=== PATIENT | female | born 1935 | race Caucasian/White ===

== ENCOUNTER 2016-09-22 18:57 | Inpatient (IN) | payer MEDICARE ==
[~2016-09-22] VITALS: Ht 162.6 cm; Wt 61.0 kg
[~2016-09-22 18:57] MED LIST: ALBUAER3 INH; ALLO100T PO; DILT0.05 PO; GABA100C4 PO; GAS-CAP3 PO; LEVO25TA4 PO; SACC1CAP3 PO; TYLE325T PO; WARF4TAB51 PO
[2016-09-22 18:59] VITALS: BP 90/53; PULSE 89; RESP 15; TEMP 98.7; O2SAT 96
[2016-09-22] MEDS ORDERED: SODIUM CHLOR 0.9% 1000 ML INJ 800 ML IV ONE (20:06)
[2016-09-22] MEDS ORDERED: SODIUM CHLOR 0.9% 1000 ML INJ 1,000 ML IV ONE (20:06)
[2016-09-22] MEDS ORDERED: VANCOMYCIN 500 MG VIAL (FOR ORAL USE ONLY) PO STA (20:06)
--- NOTE | 2016-09-22 20:10 | PD ---
HPI Chief Complaint: GI Complaint Time Seen by Provider: 20:00 Travel History International Travel<30 days: No Contact w/Intl Traveler<30days: No Traveled to known affect area: No History of Present Illness HPI This is an 80-year-old female who presents with her son-in-law, resident of [facility], primary care physician Dr. Noel. She presents for evaluation of diarrhea. According to the son-in-law who provides most of the history, the patient has had frequent episodes of C. difficile colitis over the past several months. She has been hospitalized at [facility]. She most recently was on a 14 day course of oral vancomycin which was discontinued on September 14. Since yesterday evening she has had multiple episodes of brown watery stool. She's been complaining of some mild pain in left lower portion of her abdomen. She had low-grade fevers today, maximum temperature was 100.6. In addition the son- in-law noticed some nonspecific edema around the eyes. She denies any chest pain or shortness of breath, flank pain, nausea or vomiting. Per her chart review she has a history of rheumatoid arthritis, colitis, mechanical heart valve, COPD. [facility] Social History Alcohol Use: No Tobacco Use: No Allergies-Medications (Allergen,Severity, Reaction): Coded Allergies: Bees (Verified Allergy, Severe, shock, 09/22/16) Dilaudid (Verified Allergy, Severe, coded, 09/22/16) Flagyl (Verified Allergy, Intermediate, seizures, 09/22/16) Sulfa (Verified Allergy, Intermediate, pass out, hives, 09/22/16) Codeine (Verified Allergy, Mild, pass out, 09/22/16) Demerol (Verified Allergy, Mild, pass out, 09/22/16) Morphine (Verified Allergy, Mild, pass out, 09/22/16) Penicillin (Verified Allergy, Mild, rash, 09/22/16) Influenza Virus Vaccine (Verified Allergy, Unknown, allergic to eggs, ) Vancomycin (Verified Allergy, Unknown, hives, 09/22/16) PT CAN RECEIVE ORAL, BUT NOT IV Reported Meds & Prescriptions Reported Meds & Active Scripts Active Gabapentin 100 Mg Cap 100 Mg PO HS Reported Warfarin 2 Mg Tab 2 Mg PO DAILY Gas-X Ultra Strength (Simethicone) 180 Mg Cap 180 Mg PO BID PRN Tylenol (Acetaminophen) 325 Mg Tab 650 Mg PO Q4H PRN Proair Hfa 8.5 GM Inh (Albuterol Sulfate) 90 Mcg/Act Aer 2 Puff INH Q6H PRN 108 mcg/actuation Probiotic (Saccharomyces Boulardii) 250 Mg Cap 250 Mg PO BID Levothyroxine (Levothyroxine Sodium) 25 Mcg Tab 25 Mcg PO DAILY Diltiazem ER 24 HR 180 Mg Sujata 180 Mg PO DAILY Allopurinol 100 Mg Tab 100 Mg PO DAILY Review of Systems Except as stated in HPI: all other systems reviewed are Neg Physical Exam Narrative GENERAL: Well-developed well-nourished female in no acute distress. There is brown diarrhea seeping out of her clothing. SKIN: Warm and dry. There is nonspecific soft tissue swelling in the periorbital regions. There is no generalized hives. HEAD: Atraumatic. Normocephalic. EYES: Pupils equal and round. No scleral icterus. No injection or drainage. ENT: No nasal bleeding or discharge. Mucous membranes pink and moist. No swelling of the lips, tongue, uvula. No stridor or drooling. NECK: Trachea midline. No JVD. CARDIOVASCULAR: Regular rate and rhythm. No murmur appreciated. RESPIRATORY: No accessory muscle use. Clear to auscultation. Breath sounds equal bilaterally. No wheezing. GASTROINTESTINAL: Abdomen soft, mild tenderness to palpation left lower quadrant without guarding. MUSCULOSKELETAL: No obvious deformities. No clubbing. No cyanosis. No edema. NEUROLOGICAL: Awake and alert. No obvious cranial nerve deficits. Motor grossly within normal limits. Normal speech. PSYCHIATRIC: Appropriate mood and affect; insight and judgment normal. Data Data Last Documented VS Vital Signs Date Time Temp Pulse Resp B/P Pulse Ox O2 Delivery O2 Flow Rate FiO2 09/22/16 20:25 81 16 110/57 99 Room Air 09/22/16 18:59 98.7 Orders Vancomycin For Oral Use Only (Vancomycin (09/22/16 20:06) C Diff Toxin Pcr (09/22/16 20:06) Enteric Path (Stool) (09/22/16 20:06) Complete Blood Count With Diff (09/22/16 20:06) Comprehensive Metabolic Panel (09/22/16 20:06) Lactic Acid Sepsis Protocol (09/22/16 20:06) Urinalysis - C+S If Indicated (09/22/16 20:06) Blood Culture (09/22/16 20:06) Ecg Monitoring (09/22/16 20:06) Iv Access Insert/Monitor (09/22/16 20:06) Oximetry (09/22/16 20:06) Oxygen Administration (09/22/16 20:06) Ct Abd/Pel W Iv Contrast(Rout) (09/22/16 20:06) Sodium Chlor 0.9% 1000 Ml Inj (Ns 1000 M (09/22/16 20:06) Sodium Chlor 0.9% 1000 Ml Inj (Ns 1000 M (09/22/16 20:06) Act Partial Throm Time (Ptt) (09/22/16 20:10) Prothrombin Time / Inr (Pt) (09/22/16 20:10) Diphenhydramine Inj (Benadryl Inj) (09/22/16 20:30) Isolation (09/22/16 21:03) Potassium Chloride (Kcl) (09/22/16 21:15) Iohexol 350 Inj (Omnipaque 350 Inj) (09/22/16 21:47) Labs Laboratory Tests Test 09/22/16 20:30 White Blood Count 14.9 TH/MM3 Red Blood Count 3.76 MIL/MM3 Hemoglobin 10.5 GM/DL Hematocrit 32.6 % Mean Corpuscular Volume 86.5 FL Mean Corpuscular Hemoglobin 27.9 PG Mean Corpuscular Hemoglobin 32.2 % Concent Red Cell Distribution Width 18.9 % Platelet Count 197 TH/MM3 Mean Platelet Volume 8.8 FL Neutrophils (%) (Auto) 79.8 % Lymphocytes (%) (Auto) 9.6 % Monocytes (%) (Auto) 9.5 % Eosinophils (%) (Auto) 0.2 % Basophils (%) (Auto) 0.9 % Neutrophils # (Auto) 11.8 TH/MM3 Lymphocytes # (Auto) 1.4 TH/MM3 Monocytes # (Auto) 1.4 TH/MM3 Eosinophils # (Auto) 0.0 TH/MM3 Basophils # (Auto) 0.1 TH/MM3 CBC Comment DIFF FINAL Differential Comment Prothrombin Time 29.5 SEC Prothromb Time International 2.6 RATIO Ratio Activated Partial 43.5 SEC Thromboplast Time Sodium Level 132 MEQ/L Potassium Level 3.1 MEQ/L Chloride Level 98 MEQ/L Carbon Dioxide Level 24.7 MEQ/L Anion Gap 9 MEQ/L Blood Urea Nitrogen 17 MG/DL Creatinine 1.12 MG/DL Estimat Glomerular Filtration 47 ML/MIN Rate Random Glucose 121 MG/DL Lactic Acid Level 2.0 mmol/L Calcium Level 8.5 MG/DL Total Bilirubin 0.6 MG/DL Aspartate Amino Transf 16 U/L (AST/SGOT) Alanine Aminotransferase 13 U/L (ALT/SGPT) Alkaline Phosphatase 137 U/L Total Protein 5.5 GM/DL Albumin 2.1 GM/DL [facility] Medical Decision Making Medical Screen Exam Complete: Yes Emergency Medical Condition: Yes Medical Record Reviewed: Yes Interpretation(s) CONCLUSION: 1. Abnormal appearance of the colon with concentric thickening of the wall of the cecum and from the splenic flexure to the rectum. Diffuse nature suggests colitis. 2. Small patchy infiltrate in the right costophrenic angle. Differential Diagnosis C. difficile colitis, diverticulitis, sepsis, dehydration Narrative Course 80-year-old female who suffered from recent bouts of C. difficile colitis. She presents with multiple episodes of watery emesis since yesterday evening, low- grade fevers today. On initial examination her blood pressure is 90/53. She has mild tenderness to palpation left lower quadrant. She is not tachycardic or febrile. She has nonspecific edema around the eyes of unknown etiology, possibly an allergic reaction. She has no angioedema of the airway or wheezing or hives. The patient reports that she has been told by a neurologist at [facility] at she can no longer take Flagyl because it portably caused her seizures in the past. Plan is for basic lab work, blood cultures, CT of the abdomen and pelvis. She will be started on oral vancomycin pending C. difficile PCR. CT the abdomen and pelvis is consistent with colitis. Her diabetes count is elevated at 14.9. Her potassium is slightly low at 3.1, she was given oral potassium chloride. Her lactic is 2.0. C. difficile and stool cultures are currently pending. At this point in time the plan is to admit her for colitis which is presumably due to C. difficile given her history. She is agreeable. Discussed with Dr. Rush who is agreeable with admission to Dr. Ugalde. Diagnosis Primary Impression: Colitis Additional Impression: History of Clostridium difficile colitis Admitting Information Admitting Physician Requests: Admit Cyndi,German P. PA Sep 22, 2016 20:10 German Hanna Sep 22, 2016 20:10
[2016-09-22 20:25] VITALS: BP 110/57; PULSE 81; RESP 16; O2SAT 99
[2016-09-22] MEDS ORDERED: diphenhydrAMINE HCL 50 MG/ML VIAL IV PUSH ONE (20:30)
[2016-09-22 20:52] LABS: AUTOMATED NEUTROPHIL # 11.8 TH/MM3 (1.8-7.7); BASOPHIL # 0.1 TH/MM3 (0-0.2); BASOPHIL % 0.9 % (0.0-2.0); EOSINOPHIL % 0.2 % (0.0-4.0); HEMATOCRIT 32.6 % (35.0-46.0); HEMO FLAGS DIFF FINAL; LYMPH % 9.6 % (9.0-44.0); LYMPHOCYTE # 1.4 TH/MM3 (1.0-4.8); MEAN CELL VOLUME 86.5 FL (80.0-100.0); MEAN CORPUSCULAR HEMOGLOBIN 27.9 PG (27.0-34.0); MEAN CORPUSCULAR HGB CONC 32.2 % (32.0-36.0); MONO % 9.5 % (0.0-8.0); NEUT % 79.8 % (16.0-70.0); PLATELET COUNT 197 TH/MM3 (150-450); RED BLOOD COUNT 3.76 MIL/MM3 (4.00-5.30); RED CELL DISTRIBUTION WIDTH 18.9 % (11.6-17.2); WHITE BLOOD COUNT 14.9 TH/MM3 (4.0-11.0)
[2016-09-22 20:59] LABS: APTT (PATIENT) 43.5 SEC (24.3-30.1); INTERNATIONAL NORMALIZED RATIO 2.6 RATIO; PROTHROMBIN TIME - PATIENT 29.5 SEC (9.8-11.6)
[2016-09-22 21:07] LABS: ALT (GPT) 13 U/L (10-53); ANION GAP 9 MEQ/L (5-15); AST (GOT) 16 U/L (15-37); BICARBONATE 24.7 MEQ/L (21.0-32.0); BLOOD UREA NITROGEN 17 MG/DL (7-18); CHLORIDE 98 MEQ/L (98-107); GLOMERULAR FILTRATION RATE 47 ML/MIN (>89); POTASSIUM 3.1 MEQ/L (3.5-5.1); SODIUM (NA) 132 MEQ/L (136-145)
[2016-09-22 21:10] LABS: ALKALINE PHOSPHATASE 137 U/L (45-117); TOTAL BILIRUBIN ADULT 0.6 MG/DL (0.2-1.0)
[2016-09-22] MEDS ORDERED: POTASSIUM CHLORIDE 20 MEQ CONTROLLED RELEASE TAB PO ONE (21:15)
[2016-09-22] MEDS ORDERED: IOHEXOL 350 MG/ML 10 ML VIAL (for RAD DIAG) IV ONE (21:47)
--- NOTE | 2016-09-22 22:10 | RADRPT ---
EXAM DATE/TIME: 09/22/2016 21:35 [place] COMPARISON: No previous studies available for comparison. INDICATIONS : Abdominal pain and diarrhea. IV CONTRAST: 75 cc Omnipaque 350 (iohexol) IV ORAL CONTRAST: No oral contrast ingested. RADIATION DOSE: 9.96 CTDIvol (mGy) MEDICAL HISTORY : Colitis. SURGICAL HISTORY : Hysterectomy. Cholecystectomy.CABGColon resection. ENCOUNTER: Initial ACUITY: 1 day PAIN SCALE: 6/10 LOCATION: Left lower quadrant TECHNIQUE: Volumetric scanning of the abdomen and pelvis was performed. Using automated exposure control and ad justment of the mA and/or kV according to patient size, radiation dose was kept as low as reasonably achievable to obtain optimal diagnostic quality images. DICOM format image data is available electro nically for review and comparison. FINDINGS: LOWER LUNGS: Small areas of infiltrate in the right costophrenic angle. No evidence of pleural effusion. Calcifi ed granuloma in the medial right lower lung. Small hiatus hernia. LIVER: Homogeneous density without lesion. There is no dilation of the biliary tree. Cholecystectomy. SPLEEN: Normal size without lesion. PANCREAS: Within normal limits. KIDNEYS: Normal in size and shape. There is no mass, stone or hydronephrosis. ADRENAL GLANDS: Within normal limits. VASCULAR: Dense wall calcification throughout the not enlarged abdominal aorta. BOWEL/MESENTERY: Abnormal appearance to the colon with concentric wall thickening from the splenic flexure to the rect um measuring up to 1 cm in thickness. There is also concentric wall thickening in the cecum. No jewel dence of free fluid. There are a few scattered diverticula in the sigmoid colon. No evidence of cara e fluid. Air-fluid levels are seen in the small bowel, but no dilated loops of small bowel. ABDOMINAL WALL: There is some mild induration of the subcutaneous fat of the anterior abdominal wall and in the glute al region bilaterally. RETROPERITONEUM: There is no lymphadenopathy. BLADDER: No wall thickening or mass. REPRODUCTIVE: Within normal limits. INGUINAL: There is no lymphadenopathy or hernia. MUSCULOSKELETAL: Advanced hypertrophic changes in the posterior elements of the lumbar spine. CONCLUSION: 1. Abnormal appearance of the colon with concentric thickening of the wall of the cecum and from the splenic flexure to the rectum. Diffuse nature suggests colitis. 2. Small patchy infiltrate in the right costophrenic angle. Aron Asher MD on September 22, 2016 at 21:59 Board Certified Radiologist. This report was verified electronically.
[2016-09-22 22:41] VITALS: BP 144/65; PULSE 77; RESP 16; O2SAT 98
[2016-09-22] MEDS ORDERED: ACETAMINOPHEN 325 MG TAB PO PRN (23:15)
[2016-09-22] MEDS ORDERED: NALOXONE HCL 0.4 MG/ML AMP IV PRN (23:15)
[2016-09-22] MEDS ORDERED: SODIUM CHLORIDE 0.9% FLUSH 10 ML FLUSH IV FLUSH PRN (23:15)
[2016-09-22 23:19] LABS: C. DIFF EPI 027 PRESUMPTIVE POSITIVE (NEGATIVE)
[2016-09-22 23:20] LABS: C. DIFF TOXIN PCR POSITIVE (NEGATIVE)
--- NOTE | 2016-09-22 23:23 | HHI.HP ---
HPI Service Family Medicine Primary Care Physician Alex Noel MD Admission Diagnosis colitis, hypokalemia Diagnoses: International Travel<30 Days: No Contact w/Intl Traveler<30days: No Known Affected Area: No History of Present Illness 80yr old female w/ PMH of mechanical hear valve, colitis, hypothyroidism, who presents with abdominal pain, diarrhea, and low grade fever from the [facility]. History is provided by pt and son-in-law (medical surrogate) . Pt has had non-blooding, watery diarrhea for the last 18 hrs accompanied by a low grade fever of 100.6. She also complains of LLQ, pressurized, non- radiating, 7/10 abdominal pain that comes and goes. She has had 3 episode of colitis over the past several months, where she was hospitalized at [facility]. She recently was on a 14 day course of oral vancomycin that was discontinued on September 14. In addition, son-in-law reports puffiness and swelling around her eyes that started yesterday afternoon. Pt denies redness, itchiness, and vision changes. Pt also states that she has been unable to urinate since this morning. Son-in-law is concern that she has a possible UTI since she is slightly confused and not acting like her normal self. Denies CP, SOB, N/V, flank pain, headache, and swelling in lower extremities. Review of Systems ROS Limitations: Poor Historian Constitutional: COMPLAINS OF: Fever (low- grade fever of 100.6 in [place] [facility] ; no fever upon arrival to ED ), DENIES: Change in appetite Eyes: DENIES: Vision loss Ears, nose, mouth, throat: DENIES: Sinus Pain Respiratory: COMPLAINS OF: Cough (slight dry cough), DENIES: Shortness of breath Cardiovascular: DENIES: Chest pain, Lower Extremity Edema Gastrointestinal: COMPLAINS OF: Abdominal pain (LLQ abdominal pain ), Diarrhea , DENIES: Nausea, Vomiting Genitourinary: DENIES: Dysuria Musculoskeletal: DENIES: Back pain Integumentary: DENIES: Rash Hematologic/lymphatic: DENIES: Lymphadenopathy Neurologic: DENIES: Headache, Paresthesias Past Family Social History Past Medical History Past Medical History: Anemia Colitis with C. 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+ years ago; no adjuvant therapy necessary Left carotid endarterectomy Coronary artery bypass grafting with replacement of aortic valve with a metal prosthetic valve; approximately 15 years ago - bilateral cataract extraction Allergies: Coded Allergies: Bees (Verified Allergy, Severe, shock, 09/22/16) Dilaudid (Verified Allergy, Severe, coded, 09/22/16) Flagyl (Verified Allergy, Intermediate, seizures, 09/22/16) Sulfa (Verified Allergy, Intermediate, pass out, hives, 09/22/16) Codeine (Verified Allergy, Mild, pass out, 09/22/16) Demerol (Verified Allergy, Mild, pass out, 09/22/16) Morphine (Verified Allergy, Mild, pass out, 09/22/16) Penicillin (Verified Allergy, Mild, rash, 09/22/16) Influenza Virus Vaccine (Verified Allergy, Unknown, allergic to eggs, ) Vancomycin (Verified Allergy, Unknown, hives, 09/22/16) PT CAN RECEIVE ORAL, BUT NOT IV Family History Father: of heart failure at 84 Mother: of complications of an aortic aneurysm at 90 Siblings: One brother and one sister from lung cancer Children: 2 sons alive and well Social History Marital Status: Living Situation: Recently was living in a [facility] until hospitalized earlier this year. [facility] and now transitioned to the [facility] assisted living unit at [facility]. This patient was originally from [place] but has lived much of her life in the [facility]. Education: Post high school Work history: Retired respiratory therapist Tobacco: Quit approximately 20+ years ago, moderate use prior to quitting Alcohol: None Illicit drug use: none Physical Exam Vital Signs Vital Signs Date Time Temp Pulse Resp B/P Pulse Ox O2 Delivery O2 Flow Rate FiO2 09/22/16 22:41 77 16 144/65 98 Room Air 09/22/16 20:25 81 16 110/57 99 Room Air 09/22/16 20:24 99 Room Air 09/22/16 20:14 16 09/22/16 18:59 98.7 89 15 90/53 96 Room Air Physical Exam GENERAL: This is a well-nourished, well-developed patient, in no apparent distress. SKIN: No rashes, ecchymoses or lesions. Cool and dry. HEAD: Atraumatic. Normocephalic. No temporal or scalp tenderness. EYES: Nonspecific edema around the eyes. No redness. Pupils equal round and reactive. Extraocular motions intact. No scleral icterus. No injection or drainage. ENT: Nose without bleeding, purulent drainage or septal hematoma. Throat without erythema, tonsillar hypertrophy or exudate. Uvula midline. Airway patent. NECK: Trachea midline. No JVD or lymphadenopathy. Supple, nontender, no meningeal signs. CARDIOVASCULAR: Regular rate and rhythm without murmurs, gallops, or rubs. RESPIRATORY: Clear to auscultation. Breath sounds equal bilaterally. No wheezes , rales, or rhonchi. GASTROINTESTINAL: Abdomen soft, mild tenderness to palpation in LLQ w/ no guarding, nondistended. No hepato-splenomegaly, or palpable masses. MUSCULOSKELETAL: Extremities without clubbing, cyanosis, or edema. No joint tenderness, effusion, or edema noted. No calf tenderness. Negative Homans sign bilaterally. NEUROLOGICAL: Awake and alert. Cranial nerves II through XII intact. Motor and sensory grossly within normal limits. Five out of 5 muscle strength in all muscle groups. Normal speech. Laboratory Laboratory Tests Test 09/22/16 20:30 White Blood Count 14.9 Red Blood Count 3.76 Hemoglobin 10.5 Hematocrit 32.6 Mean Corpuscular Volume 86.5 Mean Corpuscular Hemoglobin 27.9 Mean Corpuscular Hemoglobin 32.2 Concent Red Cell Distribution Width 18.9 Platelet Count 197 Mean Platelet Volume 8.8 Neutrophils (%) (Auto) 79.8 Lymphocytes (%) (Auto) 9.6 Monocytes (%) (Auto) 9.5 Eosinophils (%) (Auto) 0.2 Basophils (%) (Auto) 0.9 Neutrophils # (Auto) 11.8 Lymphocytes # (Auto) 1.4 Monocytes # (Auto) 1.4 Eosinophils # (Auto) 0.0 Basophils # (Auto) 0.1 CBC Comment DIFF FINAL Differential Comment Prothrombin Time 29.5 Prothromb Time International 2.6 Ratio Activated Partial 43.5 Thromboplast Time Stool C. difficile Toxin (PCR) POSITIVE Stl C. difficile Toxin PRESUMPTIVE Epiderm 027 POSITIVE Sodium Level 132 Potassium Level 3.1 Chloride Level 98 Carbon Dioxide Level 24.7 Anion Gap 9 Blood Urea Nitrogen 17 Creatinine 1.12 Estimat Glomerular Filtration 47 Rate Random Glucose 121 Lactic Acid Level 2.0 Calcium Level 8.5 Total Bilirubin 0.6 Aspartate Amino Transf 16 (AST/SGOT) Alanine Aminotransferase 13 (ALT/SGPT) Alkaline Phosphatase 137 Total Protein 5.5 Albumin 2.1 Date/Time Procedure Status Source Growth 09/22/16 20:30 Aerobic Blood Culture Received Blood Peripheral Pending 09/22/16 20:30 Anaerobic Blood Culture Received Blood Peripheral Pending 09/22/16 20:30 Received Stool Stool Pending Result Diagram: 09/22/16202909/22/162029 Imaging Last Impressions Abdomen/Pelvis CT 09/22/162005 Signed Impressions: Service Date/Time: September 21:35 - CONCLUSION: 1. Abnormal appearance of the colon with concentric thickening of the wall of the cecum and from the splenic flexure to the rectum. Diffuse nature suggests colitis. 2. Small patchy infiltrate in the right costophrenic angle. Aron Asher MD Assessment and Plan Assessment and Plan 80yr old female w/ PMH of mechanical hear valve, colitis, hypothyroidism, presented with abdominal pain and diarrhea. Admitted for colitis. Code Status DNR Discussed Condition With Pt seen and examined with Dr. Membreno. Will discuss with Dr. Carson. Problem List: (1) Colitis Status: Acute Plan: Pt has had 3 episodes of colitis over the past several months. She was on a 14 day course of vancomycin, which was discontinued on September 14. - CT of the abdomen and pelvis showed abnormal appearance of the colon with concentric thickening of the wall of the cecum and from the splenic flexure to the rectum. -CBC- elevated WBC count of 14.9 -C.diff and stool cultures pending -C.diff tox PCR and C.diff tox epid - positive -Started on (09/23) oral vancomycin 125 mg PO QID, pt reports having an adverse reaction of IV vancomycin, where she experienced at rash at the IV site, likely Red Man syndrome -ID consulted -Pt on contact precautions (2) LÓPEZ (acute kidney injury) Status: Acute Plan: Cr is elevated at 1.12, this is possibly due to dehydration, will f/u after giving her fluids -BMP ordered for the AM (3) Mechanical heart valve present Status: Acute Plan: - On Coumadin, 2mg PO daily -INR 2.6 (4) Nutrition, metabolism, and development symptoms Status: Acute Plan: -Fluids: NS 100mls/hr -Electrolytes: -BMP- K+ low at 3.1, replaced with 40meq,monitor and replaced as needed, -Nutrition: Regular Diet -Nursing Orders, vitals q4h, monitor I & Os, bed rest (5) Hypothyroid Status: Acute Plan: -Levothyroxine 25mcg PO Physician Certification 2 Midnight Certification Type: Admission for Inpatient Services Order for Inpatient Services The services are ordered in accordance with Medicare regulations or non- Medicare payer requirements, as applicable. In the case of services not specified as inpatient-only, they are appropriately provided as inpatient services in accordance with the 2-midnight benchmark. Estimated LOS (days): 2 days is the estimated time the patient will need to remain in the hospital, assuming treatment plan goals are met and no additional complications. Post-Hospital Plan: SNF Tala Moss MD R1 Sep 22, 2016 23:23
[2016-09-22 23:33] LABS: BACTERIA, URINE RARE /hpf; BLOOD, URINE NEG (NEG); COMMENT (UR) CATH-CULTURE IND; CULTURE IF INDICATED CATH CULTURE IND; GLUCOSE,URINE NEG (NEG); HYALINE CAST, URINE 4 /lpf (RARE); KETONE, URINE NEG (NEG); MUCUS URINE FEW /lpf (OCC); NITRITE,URINE NEG (NEG); PH, URINE 5.5 (5.0-8.5); URINE COLOR YELLOW (YELLW/STRAW)
[2016-09-23] VITALS (7 sets, daily range): BP systolic 148–178; BP diastolic 67–82; PULSE 77–84; RESP 18–20; TEMP 97.6–98.2; O2SAT 96–97
[2016-09-23] MEDS ORDERED: SIMETHICONE 80 MG CHEWABLE TAB CHEW PRN (00:15)
[2016-09-23] MEDS: VANCOMYCIN 500 MG VIAL (FOR ORAL USE ONLY) PO SCH ×5 (05:00→20:16)
[2016-09-23] MEDS: LEVOTHYROXINE SODIUM 25 MCG TAB PO SCH (05:20)
[2016-09-23] MEDS: SODIUM CHLORIDE 0.9% FLUSH 10 ML FLUSH IV FLUSH SCH ×2 (07:59→20:15)
[2016-09-23] MEDS: SODIUM CHLOR 0.9% 1000 ML INJ 1,000 ML IV SCH ×2 (08:00→13:50)
[2016-09-23] MEDS: DILTIAZEM-CD 180 MG CAP ER PO SCH (08:00)
[2016-09-23] MEDS ORDERED: NON-FORMULARY DRUG (Saccharomyces Boulardii (Probiotic) 250 MG) PO SCH (09:00)
--- NOTE | 2016-09-23 09:21 | HHI.FPPN ---
Subjective Remarks Patient feels slightly better this morning. Her abdominal pain is gone. She is not having any more fevers. However, she still has less energy. She has had more than 5 but less than 10 bowel movements since being here. Denies headache, changes in vision, belly pain, shortness of breath. (Rakesh Carson MD R2) Objective Vitals Vital Signs Date Time Temp Pulse Resp B/P Pulse Ox O2 Delivery O2 Flow Rate FiO2 09/23/16 04:55 98.0 84 18 160/74 96 09/23/16 00:15 97.8 79 18 148/67 97 09/22/16 22:41 77 16 144/65 98 Room Air 09/22/16 20:25 81 16 110/57 99 Room Air 09/22/16 20:24 99 Room Air 09/22/16 20:14 16 09/22/16 18:59 98.7 89 15 90/53 96 Room Air I/O 09/22/16 09/22/16 09/22/16 09/23/16 09/23/16 09/23/16 07:00 15:00 23:00 07:00 15:00 23:00 Intake Total 0 ml Output Total 350 ml Balance -350 ml Intake Oral 0 ml Output Urine Total 350 ml # Voids 1 # Bowel Movements 7 (Rakesh Carson MD R2) Result Diagram: 09/22/16202909/22/162029 Objective Remarks GENERAL: This is a pleasant elderly female lying comfortably in bed, answering questions appropriately. No acute distress. SKIN: No rashes, ecchymoses or lesions. Cool and dry. HEAD: Atraumatic. Normocephalic. No temporal or scalp tenderness. EYES: Nonspecific edema around the eyes. No redness. Pupils equal round and reactive. Extraocular motions intact. No scleral icterus. No injection or drainage. ENT: Nose without bleeding, purulent drainage or septal hematoma. Throat without erythema, tonsillar hypertrophy or exudate. Uvula midline. Airway patent. NECK: Trachea midline. No JVD or lymphadenopathy. Supple, nontender, no meningeal signs. CARDIOVASCULAR: Regular rate and rhythm without murmurs, gallops, or rubs. RESPIRATORY: Clear to auscultation. Breath sounds equal bilaterally. No wheezes , rales, or rhonchi. GASTROINTESTINAL: Abdomen soft, nontender to palpation. No hepato-splenomegaly, or palpable masses. Positive bowel sounds. MUSCULOSKELETAL: Extremities without clubbing, cyanosis, or edema. No joint tenderness, effusion, or edema noted. No calf tenderness. Negative Homans sign bilaterally. NEUROLOGICAL: Awake and alert. Cranial nerves II through XII intact. Motor and sensory grossly within normal limits. Five out of 5 muscle strength in all muscle groups. Normal speech. (Rakesh Carson MD R2) A/P Assessment and Plan 80yr old female w/ PMH of mechanical hear valve, recent hospital stay in August for C. difficile colitis. Here for recurrent C. difficile colitis. Infectious disease consult and plan as discussed below. Discharge Planning Pending clinical improvement (Rakesh Carson MD R2) Attending Attestation Patient seen and examined. Case reviewed and discussed with the resident team. Agree with plan of care as discussed with me and documented in the resident note. she had 4 bowel movements in 4 hours this am per her nurse. she has the loose watery diarrhea of C diff. she stated she lost 50 pounds over some months and has decreased appetite (Denise Ugalde MD) Problem List: (1) Clostridium difficile colitis Status: Acute Plan: Recurrent C. difficile colitis. Epidemiologic 027 strain positive Infectious disease consult Started on (09/23) oral vancomycin 125 mg PO QID (patient had likely red man syndrome from IV vancomycin, but she has previously tolerated by mouth vancomycin without adverse reaction) Patient on contact precautions Continue to follow daily labs Fluids as below Lab history: 09/22: WBC 14.9, lactic acid 2.0, creatinine 1.12, albumin 2.1 C. difficile toxin positive. Epidemiologic 027 strain positive Imaging: -09/22: CT of the abdomen and pelvis showed abnormal appearance of the colon with concentric thickening of the wall of the cecum and from the splenic flexure to the rectum. (2) LÓPEZ (acute kidney injury) Status: Acute Plan: Creatinine mildly elevated. Likely prerenal from diarrhea Continue IV hydration (3) Mechanical heart valve present Status: Acute Plan: - On Coumadin, 2mg PO daily -INR 2.6 (4) Hypothyroid Status: Chronic Plan: -Continue home Levothyroxine 25mcg PO (5) Weakness Status: Acute Plan: Increased weakness and decreased energy since dealing with diarrhea Consider physical therapy consult when patient is out of acute illness. (6) Nutrition, metabolism, and development symptoms Status: Acute Plan: -Fluids: NS 100mls/hr -Electrolytes: Monitor and replace as needed -Nutrition: Regular Diet Prophylaxis: On warfarin as above, INR therapeutic (Rakesh Carson MD R2) Rakesh Carson MD R2 Sep 23, 2016 09:21 Denise Ugalde MD Sep 23, 2016 16:21
--- NOTE | 2016-09-23 12:23 | PD.ID.CON ---
History of Present Illness Service ID Consult Requested By Dr Moss Reason for Consult C.diff Primary Care Physician Alex Noel MD Diagnoses: History of Present Illness 80 yo female developped diarrhea in July and was treated 2 courses of vancomycin per her own report. She thins it was 2 courses, overall she thinks she was taking vancomycin for 2 months. Her diarrhea resolved with treatment . Vanco was stopped about 2 weeks ago and in a week diarrhea recurred She also having abdominal pain She had 4 liquid BMs today She has no fever, WBC in 13-14 range, she tolerates po, thought she has low appetite She developped seizure with flagyls She describes red man syndrome with IV vancomycin, but oral vanco is tolerated unvenetfully Review of Systems Constitutional: COMPLAINS OF: Change in appetite (poor) Gastrointestinal: COMPLAINS OF: Abdominal pain, Diarrhea Past Family Social History Allergies: Coded Allergies: Bees (Verified Allergy, Severe, shock, 09/22/16) Dilaudid (Verified Allergy, Severe, coded, 09/22/16) Flagyl (Verified Allergy, Intermediate, seizures, 09/22/16) Sulfa (Verified Allergy, Intermediate, pass out, hives, 09/22/16) Codeine (Verified Allergy, Mild, pass out, 09/22/16) Demerol (Verified Allergy, Mild, pass out, 09/22/16) Morphine (Verified Allergy, Mild, pass out, 09/22/16) Penicillin (Verified Allergy, Mild, rash, 09/22/16) Influenza Virus Vaccine (Verified Allergy, Unknown, allergic to eggs, ) Vancomycin (Verified Allergy, Unknown, hives, 09/22/16) PT CAN RECEIVE ORAL, BUT NOT IV Past Medical History Anemia Colitis with C. 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 15+ years ago; no adjuvant therapy necessary Left carotid endarterectomy Coronary artery bypass grafting with replacement of aortic valve with a metal prosthetic valve; approximately 15 years ago - bilateral cataract extraction Active Ordered Medications Medications where reviewed in EMR Antibiotics Include: vanco 125 mg PO Family History Father: of heart failure at 84 Mother: of complications of an aortic aneurysm at 90 Siblings: One brother and one sister from lung cancer Children: 2 sons alive and well Social History Placed in a long-term facility for rehabilitation and now transitioned to assisted living unit at [facility]. Retired respiratory therapist Tobacco: Quit approximately 20+ years ago, moderate use prior to quitting Alcohol: None Illicit drug use: none Physical Exam Vital Signs Vital Signs Date Time Temp Pulse Resp B/P Pulse Ox O2 Delivery O2 Flow Rate FiO2 09/23/16 08:00 98.2 80 18 169/72 97 09/23/16 04:55 98.0 84 18 160/74 96 09/23/16 00:15 97.8 79 18 148/67 97 09/22/16 22:41 77 16 144/65 98 Room Air 09/22/16 20:25 81 16 110/57 99 Room Air 09/22/16 20:24 99 Room Air 09/22/16 20:14 16 09/22/16 18:59 98.7 89 15 90/53 96 Room Air Physical Exam CONSTITUTIONAL/GENERAL: This is an adequately nourished patient, in no apparent distress. TUBES/LINES/DRAINS: SKIN: No jaundice, rashes, or lesions. Skin temperature appropriate. Not diaphoretic. HEAD: Atraumatic. Normocephalic. EYES: Pupils equal and round and reactive. Extraocular motions intact. No scleral icterus. No injection or drainage. Fundi not examined. ENT: Hearing grossly normal. Nose without bleeding or purulent drainage. Oral mucosae seem dryish without visible erythema, exudates, masses, or lesions. NECK: Trachea midline. Supple, nontender. CARDIOVASCULAR: Regular rate and rhythm without murmurs, gallops, or rubs. No JVD. Peripheral pulses symmetric. RESPIRATORY/CHEST: Symmetric, unlabored respirations. Clear to auscultation. Breath sounds equal bilaterally. No wheezes, rales, or rhonchi. GASTROINTESTINAL: Abdomen soft, diffusely moderately tender without guarding or rebound, mildly distended. No hepato-splenomegaly, or palpable masses. No guarding. Bowel sounds present. GENITOURINARY: Without palpable bladder distension. MUSCULOSKELETAL: Extremities without clubbing, cyanosis, or edema. No joint tenderness or effusion noted. No calf tenderness. No mottling or clubbing. LYMPHATICS: No palpable cervical or supraclavicular adenopathy. NEUROLOGICAL: Awake and alert. Motor and sensory grossly within normal limits. Follows commands. Clear speech. Moves all extremities. PSYCHIATRIC: No obvious anxiety/depression. no apparent hallucinations or other psychotic thought process. Laboratory Laboratory Tests Test 09/22/16 09/22/16 20:30 23:15 White Blood Count 14.9 Red Blood Count 3.76 Hemoglobin 10.5 Hematocrit 32.6 Mean Corpuscular Volume 86.5 Mean Corpuscular Hemoglobin 27.9 Mean Corpuscular Hemoglobin 32.2 Concent Red Cell Distribution Width 18.9 Platelet Count 197 Mean Platelet Volume 8.8 Neutrophils (%) (Auto) 79.8 Lymphocytes (%) (Auto) 9.6 Monocytes (%) (Auto) 9.5 Eosinophils (%) (Auto) 0.2 Basophils (%) (Auto) 0.9 Neutrophils # (Auto) 11.8 Lymphocytes # (Auto) 1.4 Monocytes # (Auto) 1.4 Eosinophils # (Auto) 0.0 Basophils # (Auto) 0.1 CBC Comment DIFF FINAL Differential Comment Prothrombin Time 29.5 Prothromb Time International 2.6 Ratio Activated Partial 43.5 Thromboplast Time Stool C. difficile Toxin (PCR) POSITIVE Stl C. difficile Toxin PRESUMPTIVE Epiderm 027 POSITIVE Sodium Level 132 Potassium Level 3.1 Chloride Level 98 Carbon Dioxide Level 24.7 Anion Gap 9 Blood Urea Nitrogen 17 Creatinine 1.12 Estimat Glomerular Filtration 47 Rate Random Glucose 121 Lactic Acid Level 2.0 Calcium Level 8.5 Total Bilirubin 0.6 Aspartate Amino Transf 16 (AST/SGOT) Alanine Aminotransferase 13 (ALT/SGPT) Alkaline Phosphatase 137 Total Protein 5.5 Albumin 2.1 Urine Color YELLOW Urine Turbidity CLEAR Urine pH 5.5 Urine Specific Lyons 1.029 Urine Protein TRACE Urine Glucose (UA) NEG Urine Ketones NEG Urine Occult Blood NEG Urine Nitrite NEG Urine Bilirubin NEG Urine Urobilinogen LESS THAN 2.0 Urine Leukocyte Esterase NEG Urine RBC LESS THAN 1 Urine WBC LESS THAN 1 Urine Bacteria RARE Urine Hyaline Casts 4 Urine Mucus FEW Microscopic Urinalysis Comment CATH-CULTURE IND Date/Time Procedure Status Source Growth 09/22/16 23:15 Urine Culture Received Urine Catheterized Urine Pending 09/22/16 20:30 Aerobic Blood Culture - Preliminary Resulted Blood Peripheral NO GROWTH IN 1 DAY 09/22/16 20:30 Anaerobic Blood Culture - Preliminary Resulted Blood Peripheral NO GROWTH IN 1 DAY 09/22/16 20:30 - Final Complete Stool Stool NO ENTERIC PATHOGENS DETECTED BY PCR... Result Diagram: 09/22/16202909/22/162029 Imaging Last Impressions Abdomen/Pelvis CT 09/22/162005 Signed Impressions: Service Date/Time: September 21:35 - CONCLUSION: 1. Abnormal appearance of the colon with concentric thickening of the wall of the cecum and from the splenic flexure to the rectum. Diffuse nature suggests colitis. 2. Small patchy infiltrate in the right costophrenic angle. Aron Asher MD Assessment and Plan Assessment and Plan C.diff, 1st or 2nd recurrence: pt is unsure but thinks she had already 2 separate courses of vancomycin over the last 2 months - hypervirulent 027 strain REC's; Cont oral vancomycin 125 mg qid increase dose if clinically worse cont on vanco taper x 6 weeks: 125 mg qid x 2 weeks, folowed by 125 mg bid x 1 week , folowed by 125 mg daily x 1 week , folowed by 125 mg every other day x 1 week , folowed by 125 mg q 72 hrs x 5 doses Refer to GI for stool transplant consideration (can be done as o/p) Avoid systemic abx Discussed Condition With Dr Jaarmillo and residents Sarah Mason MD Sep 23, 2016 12:23
[2016-09-23 13:28] LABS: AUTOMATED NEUTROPHIL # 11.3 TH/MM3 (1.8-7.7); BASOPHIL # 0.1 TH/MM3 (0-0.2); BASOPHIL % 0.6 % (0.0-2.0); EOSINOPHIL # 0.1 TH/MM3 (0-0.4); EOSINOPHIL % 0.4 % (0.0-4.0); HEMATOCRIT 31.4 % (35.0-46.0); HEMO FLAGS DIFF FINAL; LYMPHOCYTE # 1.1 TH/MM3 (1.0-4.8); MEAN CELL VOLUME 88.2 FL (80.0-100.0); MEAN CORPUSCULAR HEMOGLOBIN 27.6 PG (27.0-34.0); MEAN CORPUSCULAR HGB CONC 31.3 % (32.0-36.0); PLATELET COUNT 177 TH/MM3 (150-450); RED BLOOD COUNT 3.56 MIL/MM3 (4.00-5.30); RED CELL DISTRIBUTION WIDTH 18.6 % (11.6-17.2); WHITE BLOOD COUNT 13.5 TH/MM3 (4.0-11.0)
[2016-09-23 13:36] LABS: INTERNATIONAL NORMALIZED RATIO 3.2 RATIO; PROTHROMBIN TIME - PATIENT 37.5 SEC (9.8-11.6)
[2016-09-23 13:55] LABS: BICARBONATE 25.2 MEQ/L (21.0-32.0)
[2016-09-23 14:07] LABS: POTASSIUM 2.8 MEQ/L (3.5-5.1)
[2016-09-23] MEDS ORDERED: POTASSIUM CHLORIDE 10 MEQ CONTROLLED RELEASE TAB PO ONE (14:45)
[2016-09-23] MEDS: WARFARIN SOD 2 MG TAB PO SCH (15:18)
[2016-09-23] MEDS: GABAPENTIN 100 MG CAP PO SCH (20:15)
[2016-09-24] VITALS (10 sets, daily range): BP systolic 150–176; BP diastolic 70–104; PULSE 73–80; RESP 18–22; TEMP 97.6–97.8; O2SAT 93–99
[2016-09-24] MEDS: SODIUM CHLOR 0.9% 1000 ML INJ 1,000 ML IV SCH ×3 (04:59→21:11)
[2016-09-24] MEDS: LEVOTHYROXINE SODIUM 25 MCG TAB PO SCH (04:59)
[2016-09-24] MEDS: SODIUM CHLORIDE 0.9% FLUSH 10 ML FLUSH IV FLUSH SCH ×2 (09:00→21:12)
[2016-09-24] MEDS: VANCOMYCIN 500 MG VIAL (FOR ORAL USE ONLY) PO SCH ×4 (10:02→21:11)
[2016-09-24] MEDS: DILTIAZEM-CD 180 MG CAP ER PO SCH (10:02)
[2016-09-24] MEDS: POTASSIUM CHLORIDE 20 MEQ CONTROLLED RELEASE TAB PO SCH ×2 (11:31→21:11)
--- NOTE | 2016-09-24 12:22 | HHI.FPPN ---
Subjective Remarks Patient doing well. Still with persistent diarrhea. Green in color. No blood. No increasing abdominal pain. No fevers. AFVSS. (Luis Davis MD R2) Objective Vitals Vital Signs Date Time Temp Pulse Resp B/P Pulse Ox O2 Delivery O2 Flow Rate FiO2 09/24/16 08:00 97.6 77 18 164/70 99 09/24/16 04:35 154/76 09/24/16 04:00 97.8 75 20 168/82 97 09/24/16 00:30 158/84 09/24/16 00:16 97.6 79 20 168/77 93 09/23/16 20:10 79 09/23/16 20:00 97.6 84 20 158/67 97 09/23/16 16:00 98.1 77 18 178/75 97 I/O 09/23/16 09/23/16 09/23/16 09/24/16 09/24/16 09/24/16 07:00 15:00 23:00 07:00 15:00 23:00 Intake Total 0 ml 360 ml 120 ml 1694 ml Output Total 350 ml Balance -350 ml 360 ml 120 ml 1694 ml Intake Oral 0 ml 360 ml 120 ml 360 ml IV Total 1334 ml Output Urine Total 350 ml # Voids 1 6 3 3 # Bowel Movements 7 8 3 3 (Luis Davis MD R2) Result Diagram: 09/23/16 1307 09/23/16 1307 Objective Remarks GENERAL: This is a pleasant elderly female lying comfortably in bed, answering questions appropriately. No acute distress. SKIN: No rashes, ecchymoses or lesions. Cool and dry. HEAD: Atraumatic. Normocephalic. No temporal or scalp tenderness. EYES: Nonspecific edema around the eyes. No redness. Pupils equal round and reactive. Extraocular motions intact. No scleral icterus. No injection or drainage. ENT: Nose without bleeding, purulent drainage or septal hematoma. Throat without erythema, tonsillar hypertrophy or exudate. Uvula midline. Airway patent. NECK: Trachea midline. No JVD or lymphadenopathy. Supple, nontender, no meningeal signs. CARDIOVASCULAR: Regular rate and rhythm without murmurs, gallops, or rubs. RESPIRATORY: Clear to auscultation. Breath sounds equal bilaterally. No wheezes , rales, or rhonchi. GASTROINTESTINAL: Abdomen soft, nontender to palpation. No hepato-splenomegaly, or palpable masses. Positive bowel sounds. MUSCULOSKELETAL: Extremities without clubbing, cyanosis, or edema. No joint tenderness, effusion, or edema noted. No calf tenderness. Negative Homans sign bilaterally. NEUROLOGICAL: Awake and alert. Cranial nerves II through XII intact. Motor and sensory grossly within normal limits. Five out of 5 muscle strength in all muscle groups. Normal speech. (Luis Davis MD R2) A/P Assessment and Plan 80yr old female w/ PMH of mechanical hear valve, recent hospital stay in August for C. difficile colitis. Here for recurrent C. difficile colitis. Infectious disease consult and plan as discussed below. Discharge Planning Pending clinical improvement (Luis Davis MD R2) Attending Attestation Patient seen and examined. Case reviewed and discussed with the resident team. Agree with plan of care as discussed with me and documented in the resident note. she is more comfortable but still having diarrhea (Denise Ugalde MD) Problem List: (1) Clostridium difficile colitis Status: Acute Plan: Recurrent C. difficile colitis. Epidemiologic 027 strain positive Infectious disease consult recommend Vancomycin taper Started on (09/23) oral vancomycin 125 mg PO QID (patient had likely red man syndrome from IV vancomycin, but she has previously tolerated by mouth vancomycin without adverse reaction) Patient on contact precautions Continue to follow daily labs Fluids as below Lab history: 09/22: WBC 14.9, lactic acid 2.0, creatinine 1.12, albumin 2.1 C. difficile toxin positive. Epidemiologic 027 strain positive Imaging: -09/22: CT of the abdomen and pelvis showed abnormal appearance of the colon with concentric thickening of the wall of the cecum and from the splenic flexure to the rectum. (2) LÓPEZ (acute kidney injury) Status: Acute Plan: Resolved. (3) Mechanical heart valve present Status: Acute Plan: - On Coumadin, 2mg PO daily -INR 2.6 (4) Hypothyroid Status: Chronic Plan: -Continue home Levothyroxine 25mcg PO (5) Weakness Status: Acute Plan: Increased weakness and decreased energy since dealing with diarrhea Consider physical therapy consult when patient is out of acute illness. (6) Nutrition, metabolism, and development symptoms Status: Acute Plan: -Fluids: NS 100mls/hr -Electrolytes: K+ 2.8 on 09/23 - difficult to draw blood (phlebotomy has tried x 4) - has gotten 80 mEc KCl PO x 1, will continue with KCl 40 mEq PO BID. Recheck BMP in am. -Nutrition: Regular Diet Prophylaxis: On warfarin as above, INR therapeutic (Luis Davis MD R2) Luis Davis MD R2 Sep 24, 2016 12:22 Denise Ugalde MD Sep 24, 2016 13:46
[2016-09-24 13:25] LABS: AUTOMATED NEUTROPHIL # 6.7 TH/MM3 (1.8-7.7); BASOPHIL # 0.1 TH/MM3 (0-0.2); BASOPHIL % 0.7 % (0.0-2.0); EOSINOPHIL # 0.1 TH/MM3 (0-0.4); EOSINOPHIL % 1.3 % (0.0-4.0); HEMATOCRIT 33.1 % (35.0-46.0); HEMO FLAGS DIFF FINAL; LYMPH % 12.6 % (9.0-44.0); LYMPHOCYTE # 1.1 TH/MM3 (1.0-4.8); MEAN CELL VOLUME 88.5 FL (80.0-100.0); MEAN CORPUSCULAR HEMOGLOBIN 27.9 PG (27.0-34.0); MEAN CORPUSCULAR HGB CONC 31.5 % (32.0-36.0); MONO % 6.2 % (0.0-8.0); NEUT % 79.2 % (16.0-70.0); PLATELET COUNT 203 TH/MM3 (150-450); RED BLOOD COUNT 3.74 MIL/MM3 (4.00-5.30); RED CELL DISTRIBUTION WIDTH 18.6 % (11.6-17.2); WHITE BLOOD COUNT 8.4 TH/MM3 (4.0-11.0)
[2016-09-24 13:32] LABS: INTERNATIONAL NORMALIZED RATIO 3.3 RATIO; PROTHROMBIN TIME - PATIENT 38.4 SEC (9.8-11.6)
[2016-09-24 13:47] LABS: ANION GAP 7 MEQ/L (5-15); AST (GOT) 17 U/L (15-37); BICARBONATE 22.2 MEQ/L (21.0-32.0); BLOOD UREA NITROGEN 9 MG/DL (7-18); CHLORIDE 105 MEQ/L (98-107); GLOMERULAR FILTRATION RATE 113 ML/MIN (>89); POTASSIUM 3.1 MEQ/L (3.5-5.1); SODIUM (NA) 134 MEQ/L (136-145)
[2016-09-24 13:49] LABS: ALT (GPT) 9 U/L (10-53)
[2016-09-24 13:50] LABS: ALKALINE PHOSPHATASE 135 U/L (45-117); TOTAL BILIRUBIN ADULT 0.3 MG/DL (0.2-1.0)
[2016-09-24] MEDS: WARFARIN SOD 2 MG TAB PO SCH (16:02)
[2016-09-24] MEDS: GABAPENTIN 100 MG CAP PO SCH (21:10)
[2016-09-25] VITALS (10 sets, daily range): BP systolic 158–178; BP diastolic 72–88; PULSE 69–85; RESP 18–20; TEMP 97.5–98.1; O2SAT 96–100
[2016-09-25] MEDS: SODIUM CHLOR 0.9% 1000 ML INJ 1,000 ML IV SCH (06:04)
[2016-09-25] MEDS: LEVOTHYROXINE SODIUM 25 MCG TAB PO SCH (06:04)
[2016-09-25] MEDS: SODIUM CHLORIDE 0.9% FLUSH 10 ML FLUSH IV FLUSH SCH ×2 (08:45→21:26)
[2016-09-25] MEDS: DILTIAZEM-CD 180 MG CAP ER PO SCH (08:46)
[2016-09-25] MEDS: VANCOMYCIN 500 MG VIAL (FOR ORAL USE ONLY) PO SCH ×4 (08:46→21:26)
[2016-09-25] MEDS: POTASSIUM CHLORIDE 20 MEQ CONTROLLED RELEASE TAB PO SCH ×2 (08:46→21:26)
--- NOTE | 2016-09-25 09:58 | HHI.FPPN ---
Subjective Remarks Diarrhea improving. Had BM was solic stool yesterday. Episode of falling while on bedside commode --- lost footing, never had LOC, no headache currently, did not hit her head. Right hip pain that is mild but improving. (Luis Davis MD R2) Objective Vitals Vital Signs Date Time Temp Pulse Resp B/P Pulse Ox O2 Delivery O2 Flow Rate FiO2 09/25/16 09:05 98 Room Air 09/25/16 08:02 98.1 85 20 178/80 98 09/25/16 06:00 98.0 77 20 158/72 98 09/25/16 04:00 98.0 77 20 158/72 97 09/25/16 04:00 Room Air 09/25/16 03:30 97.9 77 20 158/76 98 09/25/16 02:13 85 20 164/72 96 09/25/16 00:00 97.9 78 20 97 162/74 09/25/16 00:00 Room Air 09/24/16 20:14 80 09/24/16 20:00 97.8 79 22 162/76 97 09/24/16 16:52 73 09/24/16 16:00 97.7 77 18 150/70 98 09/24/16 12:00 97.7 78 18 176/104 98 I/O 09/24/16 09/24/16 09/24/16 09/25/16 09/25/16 09/25/16 07:00 15:00 23:00 07:00 15:00 23:00 Intake Total 1694 ml 900 ml 740 ml 882 ml Output Total 375 ml 200 ml Balance 1694 ml 525 ml 540 ml 882 ml Intake Oral 360 ml 900 ml 240 ml IV Total 1334 ml 500 ml 882 ml Output Urine Total 375 ml 200 ml # Voids 3 5 # Bowel Movements 3 3 3 1 (Luis Davis MD R2) Result Diagram: 09/24/16 1304 09/24/16 1304 Objective Remarks GENERAL: This is a pleasant elderly female lying comfortably in bed, answering questions appropriately. No acute distress. SKIN: No rashes, ecchymoses or lesions. Cool and dry. HEAD: Atraumatic. Normocephalic. No temporal or scalp tenderness. EYES: Nonspecific edema around the eyes. No redness. Pupils equal round and reactive. Extraocular motions intact. No scleral icterus. No injection or drainage. ENT: Nose without bleeding, purulent drainage or septal hematoma. Throat without erythema, tonsillar hypertrophy or exudate. Uvula midline. Airway patent. NECK: Trachea midline. No JVD or lymphadenopathy. Supple, nontender, no meningeal signs. CARDIOVASCULAR: Regular rate and rhythm without murmurs, gallops, or rubs. RESPIRATORY: Clear to auscultation. Breath sounds equal bilaterally. No wheezes , rales, or rhonchi. GASTROINTESTINAL: Abdomen soft, nontender to palpation. No hepato-splenomegaly, or palpable masses. Positive bowel sounds. MUSCULOSKELETAL: small 3 cm round ecchymosis on right hip, full ROM. NEUROLOGICAL: Awake and alert. Cranial nerves II through XII intact. Motor and sensory grossly within normal limits. Five out of 5 muscle strength in all muscle groups. Normal speech. (Luis Davis MD R2) A/P Assessment and Plan 80yr old female w/ PMH of mechanical hear valve, recent hospital stay in August for C. difficile colitis. Here for recurrent C. difficile colitis. Infectious disease consult and plan as discussed below. Discharge Planning Pending clinical improvement (Luis Davis MD R2) Attending Attestation Patient seen and examined. Case reviewed and discussed with the resident team. Agree with plan of care as discussed with me and documented in the resident note. spoke to her and her friend Alexandre who was in the room with her. She is feeling much better overall with a better appetite and less diarrhea plus more formed. She had many questions as did her friend about C diff and why she keeps getting this repeatedly. We discussed that taking po vanc could continue for as much as 6 weeks as she has had C diff 3 times. We discussed probiotics and I am not certain which is the best and we discussed stool transplant if it keeps coming back. She is not having any current problems from her fall last night and has little if any pain at this time. will give iv magnesium as po can make diarrhea worse potentially (Denise Ugalde MD) Problem List: (1) Clostridium difficile colitis Status: Acute Plan: Recurrent C. difficile colitis. Epidemiologic 027 strain positive Infectious disease consult recommend Vancomycin taper Started on (09/23) oral vancomycin 125 mg PO QID (patient had likely red man syndrome from IV vancomycin, but she has previously tolerated by mouth vancomycin without adverse reaction) Patient on contact precautions Continue to follow daily labs Lab history: 09/22: WBC 14.9, lactic acid 2.0, creatinine 1.12, albumin 2.1 C. difficile toxin positive. Epidemiologic 027 strain positive Imaging: -09/22: CT of the abdomen and pelvis showed abnormal appearance of the colon with concentric thickening of the wall of the cecum and from the splenic flexure to the rectum. (2) LÓPEZ (acute kidney injury) Status: Acute Plan: Resolved. (3) Mechanical heart valve present Status: Acute Plan: - On Coumadin, 2mg PO daily -INR 3.3 - hold dose today 09/25 recheck INR in AM. (4) Hypothyroid Status: Chronic Plan: -Continue home Levothyroxine 25mcg PO (5) Weakness Status: Acute Plan: Increased weakness and decreased energy since dealing with diarrhea Consider physical therapy consult when patient is out of acute illness. (6) Nutrition, metabolism, and development symptoms Status: Acute Plan: -Fluids: Hold IVF as she is tolerating a diet. -Electrolytes: K+ 3.1 on 09/24 - repeat pending. Continue with KCl 40 mEq PO BID. -Nutrition: Regular Diet Prophylaxis: On warfarin as above, INR supratherapeutic (Luis Davis MD R2) Problem List: (1) Clostridium difficile colitis Status: Acute Plan: Recurrent C. difficile colitis. Epidemiologic 027 strain positive Infectious disease consult recommend Vancomycin taper Started on (09/23) oral vancomycin 125 mg PO QID (patient had likely red man syndrome from IV vancomycin, but she has previously tolerated by mouth vancomycin without adverse reaction) Patient on contact precautions Continue to follow daily labs Lab history: 09/22: WBC 14.9, lactic acid 2.0, creatinine 1.12, albumin 2.1 C. difficile toxin positive. Epidemiologic 027 strain positive Imaging: -09/22: CT of the abdomen and pelvis showed abnormal appearance of the colon with concentric thickening of the wall of the cecum and from the splenic flexure to the rectum. (2) LÓPEZ (acute kidney injury) Status: Acute Plan: Resolved. (3) Mechanical heart valve present Status: Acute Plan: - On Coumadin, 2mg PO daily -INR 3.3 - hold dose today 09/25 recheck INR in AM. (4) Hypothyroid Status: Chronic Plan: -Continue home Levothyroxine 25mcg PO (5) Weakness Status: Acute Plan: Increased weakness and decreased energy since dealing with diarrhea Consider physical therapy consult when patient is out of acute illness. (6) Nutrition, metabolism, and development symptoms Status: Acute Plan: -Fluids: Hold IVF as she is tolerating a diet. -Electrolytes: K+ 3.1 on 09/24 - repeat pending. Continue with KCl 40 mEq PO BID. -Nutrition: Regular Diet Prophylaxis: On warfarin as above, INR supratherapeutic (Denise Ugalde MD) Problem Qualifiers (1) Hypothyroid: Qualified Code: E03.9 - Acquired hypothyroidism Luis Davis MD R2 Sep 25, 2016 09:58 Denise Ugalde MD Sep 25, 2016 15:39
[2016-09-25 10:28] LABS: AUTOMATED NEUTROPHIL # 3.8 TH/MM3 (1.8-7.7); BASOPHIL # 0.1 TH/MM3 (0-0.2); BASOPHIL % 1.3 % (0.0-2.0); EOSINOPHIL # 0.1 TH/MM3 (0-0.4); HEMATOCRIT 36.1 % (35.0-46.0); HEMO FLAGS DIFF FINAL; LYMPH % 17.5 % (9.0-44.0); LYMPHOCYTE # 0.9 TH/MM3 (1.0-4.8); MEAN CELL VOLUME 88.1 FL (80.0-100.0); MEAN CORPUSCULAR HEMOGLOBIN 28.1 PG (27.0-34.0); MEAN CORPUSCULAR HGB CONC 31.9 % (32.0-36.0); MONO % 8.1 % (0.0-8.0); NEUT % 71.1 % (16.0-70.0); PLATELET COUNT 228 TH/MM3 (150-450); RED CELL DISTRIBUTION WIDTH 19.3 % (11.6-17.2); WHITE BLOOD COUNT 5.4 TH/MM3 (4.0-11.0)
[2016-09-25 10:58] LABS: BICARBONATE 20.6 MEQ/L (21.0-32.0); POTASSIUM 3.7 MEQ/L (3.5-5.1)
[2016-09-25] MEDS ORDERED: MAGNESIUM SULFATE 1 GM PREMIX 100 ML IV ONE (14:45)
[2016-09-25] MEDS: GABAPENTIN 100 MG CAP PO SCH (21:26)
[2016-09-26 04:00] VITALS: BP 171/81; PULSE 87; RESP 18; TEMP 97.4; O2SAT 98
[2016-09-26] MEDS: LEVOTHYROXINE SODIUM 25 MCG TAB PO SCH (05:35)
[2016-09-26 08:00] VITALS: BP 160/94; PULSE 77; PULSE 79; RESP 20; TEMP 98; O2SAT 97
--- NOTE | 2016-09-26 09:31 | HHI.FPPN ---
Subjective Remarks Patient is doing better this morning. She feels slightly more energetic. She has a good appetite and is looking forward to breakfast. She denies fevers, chills. She has had roughly 10 bowel movements in 24 hours. She is having some solid stool. Patient states she would rather not be discharged tomorrow because her surrogate is in court. No abdominal pain. (Rakesh Carson MD R2) Objective Vitals Vital Signs Date Time Temp Pulse Resp B/P Pulse Ox O2 Delivery O2 Flow Rate FiO2 09/26/16 04:00 97.4 87 18 171/81 98 09/25/16 23:45 97.8 78 18 163/74 98 09/25/16 20:00 69 09/25/16 20:00 97.9 78 18 164/76 96 09/25/16 20:00 Nasal Cannula 1.00 Humidified 09/25/16 17:40 18 09/25/16 16:02 97.5 78 20 170/76 100 09/25/16 12:24 97.8 83 18 160/88 96 I/O 09/25/16 09/25/16 09/25/16 09/26/16 09/26/16 09/26/16 07:00 15:00 23:00 07:00 15:00 23:00 Intake Total 882 ml 480 ml 240 ml 120 ml Balance 882 ml 480 ml 240 ml 120 ml Intake Oral 480 ml 240 ml 120 ml IV Total 882 ml # Voids 5 3 3 3 # Bowel Movements 1 1 0 2 (Rakesh Carson MD R2) Result Diagram: 09/25/16 1015 09/25/16 1015 Objective Remarks GENERAL: This is a pleasant elderly female lying comfortably in bed, answering questions appropriately. No acute distress. SKIN: No rashes, ecchymoses or lesions. Cool and dry. HEAD: Atraumatic. Normocephalic. No temporal or scalp tenderness. EYES: Nonspecific edema around the eyes. No redness. Pupils equal round and reactive. Extraocular motions intact. No scleral icterus. No injection or drainage. ENT: Nose without bleeding, purulent drainage or septal hematoma. Throat without erythema, tonsillar hypertrophy or exudate. Uvula midline. Airway patent. NECK: Trachea midline. No JVD or lymphadenopathy. Supple, nontender, no meningeal signs. CARDIOVASCULAR: Regular rate and rhythm without murmurs, gallops, or rubs. RESPIRATORY: Clear to auscultation. Breath sounds equal bilaterally. No wheezes , rales, or rhonchi. GASTROINTESTINAL: Abdomen soft, nontender to palpation. No hepato-splenomegaly, or palpable masses. Positive bowel sounds. MUSCULOSKELETAL: small 3 cm round ecchymosis on right hip, full ROM. NEUROLOGICAL: Awake and alert. Cranial nerves II through XII intact. Motor and sensory grossly within normal limits. Five out of 5 muscle strength in all muscle groups. Normal speech. (Rakesh Carson MD R2) A/P Assessment and Plan 80yr old female w/ PMH of mechanical hear valve, recent hospital stay in August for C. difficile colitis. Here for recurrent C. difficile colitis. Infectious disease consult and plan as discussed below. Discharge Planning Likely in 1-2 days on vancomycin taper per infectious disease Physical therapy consult for recommendations (Rakesh Carson MD R2) Attending Attestation Patient seen and examined. Case reviewed and discussed with the resident team. Agree with plan of care as discussed with me and documented in the resident note. Anticipate transfer back to assisted living at [facility] 09-28-16; still very deconditioned and is easily fatigued just getting out of bed to bathroom. Had a fall without injuries overnight. Would prefer she work with PT for a couple days before discharge. (Meenakshi Carson MD) Problem List: (1) Clostridium difficile colitis Status: Acute Plan: Recurrent C. difficile colitis. Epidemiologic 027 strain positive Infectious disease consult recommend Vancomycin taper: 125 mg qid x 2 weeks, followed by 125 mg bid x 1 week , followed by 125 mg daily x 1 week , followed by 125 mg every other day x 1 week , followed by 125 mg q 72 hrs x 5 doses Patient on contact precautions Continue to follow daily labs Lab history: 09/22: WBC 14.9, lactic acid 2.0, creatinine 1.12, albumin 2.1 C. difficile toxin positive. Epidemiologic 027 strain positive Imaging: -09/22: CT of the abdomen and pelvis showed abnormal appearance of the colon with concentric thickening of the wall of the cecum and from the splenic flexure to the rectum. (2) LPÓEZ (acute kidney injury) Status: Acute Plan: Resolved. (3) Mechanical heart valve present Status: Acute Plan: - On Coumadin, 2mg PO daily -INR 3.3 - hold dose today 09/25 recheck INR in AM. (4) Hypothyroid Status: Chronic Plan: -Continue home Levothyroxine 25mcg PO (5) Weakness Status: Acute Plan: Increased weakness and decreased energy since dealing with diarrhea Physical therapy consult (6) Nutrition, metabolism, and development symptoms Status: Acute Plan: -Fluids: Hold IVF as she is tolerating a diet. -Electrolytes: Continue with KCl 40 mEq PO BID. adjust as needed -Nutrition: Regular Diet Prophylaxis: On warfarin as above, INR supratherapeutic (Rakesh Carson MD R2) Problem Qualifiers (1) Hypothyroid: Qualified Code: E03.9 - Acquired hypothyroidism Rakesh Carson MD R2 Sep 26, 2016 09:31 Meenakshi Carson MD Sep 26, 2016 11:39
[2016-09-26 09:32] LABS: AUTOMATED NEUTROPHIL # 2.8 TH/MM3 (1.8-7.7); BASOPHIL # 0.1 TH/MM3 (0-0.2); BASOPHIL % 2.7 % (0.0-2.0); EOSINOPHIL # 0.1 TH/MM3 (0-0.4); EOSINOPHIL % 1.9 % (0.0-4.0); HEMATOCRIT 32.7 % (35.0-46.0); HEMO FLAGS DIFF FINAL; LYMPH % 20.2 % (9.0-44.0); LYMPHOCYTE # 0.8 TH/MM3 (1.0-4.8); MEAN CELL VOLUME 86.4 FL (80.0-100.0); MEAN CORPUSCULAR HEMOGLOBIN 27.8 PG (27.0-34.0); MEAN CORPUSCULAR HGB CONC 32.2 % (32.0-36.0); MONO % 9.5 % (0.0-8.0); NEUT % 65.7 % (16.0-70.0); PLATELET COUNT 224 TH/MM3 (150-450); RED BLOOD COUNT 3.79 MIL/MM3 (4.00-5.30); RED CELL DISTRIBUTION WIDTH 18.5 % (11.6-17.2); WHITE BLOOD COUNT 4.2 TH/MM3 (4.0-11.0)
[2016-09-26 09:40] LABS: INTERNATIONAL NORMALIZED RATIO 5.1 RATIO
[2016-09-26] MEDS: POTASSIUM CHLORIDE 20 MEQ CONTROLLED RELEASE TAB PO SCH ×2 (09:41→21:24)
[2016-09-26] MEDS: DILTIAZEM-CD 180 MG CAP ER PO SCH (09:41)
[2016-09-26] MEDS: SODIUM CHLORIDE 0.9% FLUSH 10 ML FLUSH IV FLUSH SCH ×2 (09:42→21:29)
[2016-09-26] MEDS: VANCOMYCIN 500 MG VIAL (FOR ORAL USE ONLY) PO SCH ×4 (09:42→21:24)
[2016-09-26 10:04] LABS: BICARBONATE 23.1 MEQ/L (21.0-32.0); POTASSIUM 4.3 MEQ/L (3.5-5.1)
[2016-09-26 12:00] VITALS: BP 160/63; PULSE 82; RESP 20; TEMP 97.8; O2SAT 96
[2016-09-26 16:00] VITALS: BP 160/77; PULSE 85; RESP 20; TEMP 98; O2SAT 97
[2016-09-26 20:00] VITALS: BP 156/74; PULSE 78; PULSE 92; RESP 18; TEMP 98; O2SAT 96
[2016-09-26] MEDS: GABAPENTIN 100 MG CAP PO SCH (21:24)
[2016-09-27] VITALS (7 sets, daily range): BP systolic 156–184; BP diastolic 60–88; PULSE 69–95; RESP 18–20; TEMP 97.6–98; O2SAT 96–98
[2016-09-27] MEDS: LEVOTHYROXINE SODIUM 25 MCG TAB PO SCH (05:12)
[2016-09-27 07:15] LABS: INTERNATIONAL NORMALIZED RATIO 4.7 RATIO
[2016-09-27 07:16] LABS: AUTOMATED NEUTROPHIL # 1.8 TH/MM3 (1.8-7.7); BASOPHIL % 0.8 % (0.0-2.0); EOSINOPHIL # 0.1 TH/MM3 (0-0.4); EOSINOPHIL % 3.6 % (0.0-4.0); HEMATOCRIT 32.8 % (35.0-46.0); HEMO FLAGS DIFF FINAL; LYMPH % 30.1 % (9.0-44.0); MEAN CELL VOLUME 87.7 FL (80.0-100.0); MEAN CORPUSCULAR HEMOGLOBIN 27.7 PG (27.0-34.0); MEAN CORPUSCULAR HGB CONC 31.5 % (32.0-36.0); MONO % 12.3 % (0.0-8.0); NEUT % 53.2 % (16.0-70.0); PLATELET COUNT 199 TH/MM3 (150-450); RED BLOOD COUNT 3.74 MIL/MM3 (4.00-5.30); RED CELL DISTRIBUTION WIDTH 18.5 % (11.6-17.2); WHITE BLOOD COUNT 3.4 TH/MM3 (4.0-11.0)
[2016-09-27 07:25] LABS: ALT (GPT) 11 U/L (10-53); ANION GAP 7 MEQ/L (5-15); AST (GOT) 19 U/L (15-37); BICARBONATE 21.6 MEQ/L (21.0-32.0); BLOOD UREA NITROGEN 4 MG/DL (7-18); CHLORIDE 106 MEQ/L (98-107); GLOMERULAR FILTRATION RATE 89 ML/MIN (>89); POTASSIUM 4.6 MEQ/L (3.5-5.1); SODIUM (NA) 135 MEQ/L (136-145)
[2016-09-27 07:28] LABS: ALKALINE PHOSPHATASE 204 U/L (45-117); TOTAL BILIRUBIN ADULT 0.3 MG/DL (0.2-1.0)
[2016-09-27] MEDS: SODIUM CHLORIDE 0.9% FLUSH 10 ML FLUSH IV FLUSH SCH ×2 (08:00→21:11)
[2016-09-27] MEDS: VANCOMYCIN 500 MG VIAL (FOR ORAL USE ONLY) PO SCH ×2 (08:57→22:11)
[2016-09-27] MEDS: DILTIAZEM-CD 180 MG CAP ER PO SCH (08:57)
[2016-09-27] MEDS: POTASSIUM CHLORIDE 20 MEQ CONTROLLED RELEASE TAB PO SCH (08:57)
--- NOTE | 2016-09-27 09:27 | HHI.FPPN ---
Subjective Remarks Patient is doing better this morning. She feels her energy is improved. She had 3-5 bowel movements in 24 hours. Stools are becoming more well formed. Her abdominal pain is much improved. She denies fever, chills, nausea, vomiting. (Rakesh Carson MD R2) Objective Vitals Vital Signs Date Time Temp Pulse Resp B/P Pulse Ox O2 Delivery O2 Flow Rate FiO2 09/27/16 08:00 97.6 80 18 184/88 97 09/27/16 04:00 97.9 80 18 158/70 97 09/27/16 00:00 97.9 86 18 156/66 98 09/26/16 20:00 98.0 78 18 156/74 96 09/26/16 20:00 Room Air 09/26/16 20:00 92 09/26/16 16:00 98.0 85 20 160/77 97 09/26/16 12:00 97.8 82 20 160/63 96 I/O 09/26/16 09/26/16 09/26/16 09/27/16 09/27/16 09/27/16 07:00 15:00 23:00 07:00 15:00 23:00 Intake Total 120 ml 570 ml 240 ml 240 ml Balance 120 ml 570 ml 240 ml 240 ml Intake Oral 120 ml 570 ml 240 ml 240 ml # Voids 3 3 2 4 # Bowel Movements 2 2 1 0 (Rakesh Carson MD R2) Result Diagram: 09/27/16 0600 09/27/16 0600 Objective Remarks GENERAL: This is a pleasant elderly female lying comfortably in bed, answering questions appropriately. No acute distress. SKIN: No rashes, ecchymoses or lesions. Cool and dry. HEAD: Atraumatic. Normocephalic. No temporal or scalp tenderness. EYES: Nonspecific edema around the eyes. No redness. Pupils equal round and reactive. Extraocular motions intact. No scleral icterus. No injection or drainage. ENT: Nose without bleeding, purulent drainage or septal hematoma. Throat without erythema, tonsillar hypertrophy or exudate. Uvula midline. Airway patent. NECK: Trachea midline. No JVD or lymphadenopathy. Supple, nontender, no meningeal signs. CARDIOVASCULAR: Regular rate and rhythm without murmurs, gallops, or rubs. RESPIRATORY: Clear to auscultation. Breath sounds equal bilaterally. No wheezes , rales, or rhonchi. GASTROINTESTINAL: Abdomen soft, nontender to palpation. No hepato-splenomegaly, or palpable masses. Positive bowel sounds. MUSCULOSKELETAL: small 3 cm round ecchymosis on right hip, full ROM. NEUROLOGICAL: Awake and alert. Cranial nerves II through XII intact. Motor and sensory grossly within normal limits. Five out of 5 muscle strength in all muscle groups. Normal speech. (Rakesh Carson MD R2) A/P Assessment and Plan 80yr old female w/ PMH of mechanical hear valve, recent hospital stay in August for C. difficile colitis. Here for recurrent C. difficile colitis. Infectious disease consult and plan as discussed below. Discharge Planning Likely tomorrow on vancomycin taper per infectious disease Physical therapy consult- recommends home with home health PT at [facility] (Rakesh Carson MD R2) Attending Attestation Patient seen and examined. Case reviewed and discussed with the resident team. Agree with plan of care as discussed with me and documented in the resident note. (Meenakshi Carson MD) Problem List: (1) Clostridium difficile colitis Status: Acute Plan: Recurrent C. difficile colitis. Epidemiologic 027 strain positive Infectious disease consult recommend Vancomycin taper: 125 mg qid x 2 weeks, followed by 125 mg bid x 1 week , followed by 125 mg daily x 1 week , followed by 125 mg every other day x 1 week , followed by 125 mg q 72 hrs x 5 doses Patient on contact precautions Continue to follow daily labs Lab history: 09/22: WBC 14.9, lactic acid 2.0, creatinine 1.12, albumin 2.1 C. difficile toxin positive. Epidemiologic 027 strain positive Imaging: -09/22: CT of the abdomen and pelvis showed abnormal appearance of the colon with concentric thickening of the wall of the cecum and from the splenic flexure to the rectum. (2) LÓPEZ (acute kidney injury) Status: Acute Plan: Resolved. (3) Mechanical heart valve present Status: Acute Plan: - On Coumadin, 2mg PO daily Currently on hold as INR has been supratherapeutic Continue to closely monitor while on antibiotics until INR between 2.0-3.0 (4) Hypothyroid Status: Chronic Plan: -Continue home Levothyroxine 25mcg PO (5) Weakness Status: Acute Plan: Increased weakness and decreased energy since dealing with diarrhea Physical therapy consult (6) Nutrition, metabolism, and development symptoms Status: Acute Plan: -Fluids: Tolerating by mouth -Electrolytes: Continue with KCl 20 mEq PO BID. adjust as needed -Nutrition: Regular Diet Prophylaxis: On warfarin as above (Rakesh Carson MD R2) Problem Qualifiers (1) Hypothyroid: Qualified Code: E03.9 - Acquired hypothyroidism Rakesh Carson MD R2 Sep 27, 2016 09:27 Meenakshi Carson MD Sep 27, 2016 17:51
[2016-09-27] MEDS ORDERED: COUM2TAB PO (09:42)
[2016-09-27] MEDS ORDERED: VANC125C3 PO ×5 (09:42)
--- NOTE | 2016-09-27 09:50 | HHI.FF ---
Face to Face Verification Diagnosis: (1) Clostridium difficile colitis (2) Weakness Physical Therapy Order: Evaluate and Treat, Improve ambulation, Strength and gait training Home Health Nursing Order: Medical education Signs/symptoms of disease process Nursing assessment with vital signs I have seen patient Inez Mack on 09/27/16. My clinical findings support the need for the requested home health care services because: Ltd mobility - disease progression Patient has SOB Deconditioned w/ increased weakness Limited ability to care for self I certify that my clinical findings support that this patient is homebound because: Unsteady gait/balance Unsafe to leave home unassisted [id number] bed/chair Rakesh Carson MD R2 Sep 27, 2016 09:50
[2016-09-27] MEDS: LOSARTAN 25 MG TAB PO SCH (13:08)
[2016-09-27] MEDS: GABAPENTIN 100 MG CAP PO SCH (21:10)
[2016-09-28] VITALS: BP 166/94; PULSE 81; RESP 18; TEMP 97.4; O2SAT 98
[2016-09-28 04:00] VITALS: BP 162/64; PULSE 78; RESP 18; TEMP 97.6; O2SAT 96
[2016-09-28] MEDS: LEVOTHYROXINE SODIUM 25 MCG TAB PO SCH (06:24)
[2016-09-28 08:00] VITALS: BP 164/78; PULSE 79; RESP 20; TEMP 97.8; O2SAT 96
[2016-09-28] MEDS ORDERED: COZA25TA PO (08:31)
--- NOTE | 2016-09-28 08:37 | HHI.DCPOC ---
Discharge Care Plan Diagnosis: (1) Clostridium difficile colitis (2) Mechanical heart valve present Goals to Promote Your Health * To prevent worsening of your condition and complications * To maintain your health at the optimal level Directions to Meet Your Goals Take your medications as prescribed Follow your dietary instruction Follow activity as directed Keep your appointments as scheduled Take your immunizations and boosters as scheduled If your symptoms worsen call your PCP, if no PCP go to Urgent Care Center or Emergency Room Smoking is Dangerous to Your Health. Avoid second hand smoke Call the 24-hour hour crisis hotline for domestic abuse at Rakesh Carson MD R2 Sep 28, 2016 08:36
--- NOTE | 2016-09-28 08:39 | HHI.FPPN ---
Subjective Remarks Patient is feeling better this morning. One to 2 bowel movement in 24 hours. Abdominal pain is improved. Denies fever, chills, nausea, vomiting. She is looking forward to going back to [facility]. (Rakesh Carson MD R2) Objective Vitals Vital Signs Date Time Temp Pulse Resp B/P Pulse Ox O2 Delivery O2 Flow Rate FiO2 09/28/16 08:00 97.8 79 20 164/78 96 09/28/16 04:00 97.6 78 18 162/64 96 09/28/16 00:00 97.4 81 18 166/94 98 09/27/16 20:00 Room Air 09/27/16 20:00 97.7 82 18 160/60 96 09/27/16 20:00 79 09/27/16 16:00 97.9 84 20 162/76 98 Manual Cuff/Auscultation Automatic Cuff 09/27/16 12:00 98.0 95 20 162/87 96 09/27/16 10:22 Room Air I/O 09/27/16 09/27/16 09/27/16 09/28/16 09/28/16 09/28/16 06:59 14:59 22:59 06:59 14:59 22:59 Intake Total 240 ml 480 ml Output Total 750 ml 100 ml 300 ml Balance 240 ml -270 ml -100 ml -300 ml Intake Oral 240 ml 480 ml Output Urine Total 750 ml 100 ml 300 ml # Voids 4 # Bowel Movements 0 1 (Rakesh Carson MD R2) Result Diagram: 09/27/16 0600 09/27/16 0600 Objective Remarks GENERAL: This is a pleasant elderly female lying comfortably in bed, answering questions appropriately. No acute distress. SKIN: No rashes, ecchymoses or lesions. Cool and dry. HEAD: Atraumatic. Normocephalic. No temporal or scalp tenderness. EYES: Nonspecific edema around the eyes. No redness. Pupils equal round and reactive. Extraocular motions intact. No scleral icterus. No injection or drainage. ENT: Nose without bleeding, purulent drainage or septal hematoma. Throat without erythema, tonsillar hypertrophy or exudate. Uvula midline. Airway patent. NECK: Trachea midline. No JVD or lymphadenopathy. Supple, nontender, no meningeal signs. CARDIOVASCULAR: Regular rate and rhythm without murmurs, gallops, or rubs. RESPIRATORY: Clear to auscultation. Breath sounds equal bilaterally. No wheezes , rales, or rhonchi. GASTROINTESTINAL: Abdomen soft, nontender to palpation. No hepato-splenomegaly, or palpable masses. Positive bowel sounds. MUSCULOSKELETAL: small 3 cm round ecchymosis on right hip, full ROM. NEUROLOGICAL: Awake and alert. Cranial nerves II through XII intact. Motor and sensory grossly within normal limits. Five out of 5 muscle strength in all muscle groups. Normal speech. (Rakesh Carson MD R2) A/P Assessment and Plan 80yr old female w/ PMH of mechanical hear valve, recent hospital stay in August for C. difficile colitis. Here for recurrent C. difficile colitis. Infectious disease consult and plan as discussed below. Discharge Planning Today on vancomycin taper per infectious disease Physical therapy consult- recommends home with home health PT at [facility] (Rakesh Carson MD R2) Attending Attestation Patient seen and examined. Case reviewed and discussed with the resident team. Agree with plan of care as discussed with me and documented in the resident note. (Meenakshi Carson MD) Problem List: (1) Clostridium difficile colitis Status: Acute Plan: Recurrent C. difficile colitis. Epidemiologic 027 strain positive Infectious disease consult recommend Vancomycin taper: 125 mg qid x 2 weeks, followed by 125 mg bid x 1 week , followed by 125 mg daily x 1 week , followed by 125 mg every other day x 1 week , followed by 125 mg q 72 hrs x 5 doses Patient on contact precautions Continue to follow daily labs Lab history: 09/22: WBC 14.9, lactic acid 2.0, creatinine 1.12, albumin 2.1 C. difficile toxin positive. Epidemiologic 027 strain positive Imaging: -09/22: CT of the abdomen and pelvis showed abnormal appearance of the colon with concentric thickening of the wall of the cecum and from the splenic flexure to the rectum. (2) LÓPEZ (acute kidney injury) Status: Acute Plan: Resolved. (3) Mechanical heart valve present Status: Acute Plan: - On Coumadin, 2mg PO daily Currently on hold as INR has been supratherapeutic Continue to closely monitor while on antibiotics until INR therapeutic (4) Hypothyroid Status: Chronic Plan: -Continue home Levothyroxine 25mcg PO (5) Weakness Status: Acute Plan: Increased weakness and decreased energy since dealing with diarrhea Physical therapy consult (6) Nutrition, metabolism, and development symptoms Status: Acute Plan: -Fluids: Tolerating by mouth -Electrolytes: Continue with KCl 20 mEq PO BID. adjust as needed -Nutrition: Regular Diet Prophylaxis: On warfarin as above (Rakesh Carson MD R2) Problem Qualifiers (1) Hypothyroid: Qualified Code: E03.9 - Acquired hypothyroidism Rakesh Carson MD R2 Sep 28, 2016 08:39 Meenakshi Carson MD Sep 28, 2016 11:28
--- NOTE | 2016-09-28 08:44 | HHI.DS ---
Discharge Summary Admission Date Sep 22, 2016 at 22:33 Discharge Date: Sep 28, 2016 Admitting Diagnosis colitis, hypokalemia (1) Clostridium difficile colitis Diagnosis: Principal Plan: Recurrent C. difficile colitis. Epidemiologic 027 strain positive Infectious disease consult recommend Vancomycin taper: 125 mg qid x 2 weeks, followed by 125 mg bid x 1 week , followed by 125 mg daily x 1 week , followed by 125 mg every other day x 1 week , followed by 125 mg q 72 hrs x 5 doses Patient on contact precautions Continue to follow daily labs Lab history: 09/22: WBC 14.9, lactic acid 2.0, creatinine 1.12, albumin 2.1 C. difficile toxin positive. Epidemiologic 027 strain positive Imaging: -09/22: CT of the abdomen and pelvis showed abnormal appearance of the colon with concentric thickening of the wall of the cecum and from the splenic flexure to the rectum. (2) LÓPEZ (acute kidney injury) Diagnosis: Secondary Plan: Resolved. (3) Mechanical heart valve present Diagnosis: Secondary Plan: - On Coumadin, 2mg PO daily Currently on hold as INR has been supratherapeutic Continue to closely monitor while on antibiotics until INR therapeutic (4) Hypothyroid Diagnosis: Secondary Plan: -Continue home Levothyroxine 25mcg PO (5) Weakness Diagnosis: Secondary Plan: Increased weakness and decreased energy since dealing with diarrhea Physical therapy consult (6) Nutrition, metabolism, and development symptoms Diagnosis: Secondary Plan: -Fluids: Tolerating by mouth -Electrolytes: Continue with KCl 20 mEq PO BID. adjust as needed -Nutrition: Regular Diet Prophylaxis: On warfarin as above Consultants Infectious disease Brief History 80yr old female w/ PMH of mechanical hear valve, colitis, hypothyroidism, who presents with abdominal pain, diarrhea, and low grade fever from the [facility]. History is provided by pt and son-in-law (medical surrogate) . Pt has had non-blooding, watery diarrhea for the last 18 hrs accompanied by a low grade fever of 100.6. She also complains of LLQ, pressurized, non- radiating, 7/10 abdominal pain that comes and goes. She has had 3 episode of colitis over the past several months, where she was hospitalized at [facility]. She recently was on a 14 day course of oral vancomycin that was discontinued on September 14. In addition, son-in-law reports puffiness and swelling around her eyes that started yesterday afternoon. Pt denies redness, itchiness, and vision changes. Pt also states that she has been unable to urinate since this morning. Son-in-law is concern that she has a possible UTI since she is slightly confused and not acting like her normal self. Denies CP, SOB, N/V, flank pain, headache, and swelling in lower extremities. CBC/BMP: 09/27/16 0600 09/27/16 0600 Significant Findings Laboratory Tests Test 09/25/16 09/26/16 09/26/16 09/27/16 10:15 09:03 09:07 06:00 Hemoglobin 11.5 GM/DL 10.5 GM/DL 10.4 GM/DL (11.6-15.3) (11.6-15.3) (11.6-15.3) Mean Corpuscular Hemoglobin 31.9 % 31.5 % Concent (32.0-36.0) (32.0-36.0) Red Cell Distribution Width 19.3 % 18.5 % 18.5 % (11.6-17.2) (11.6-17.2) (11.6-17.2) Neutrophils (%) (Auto) 71.1 % (16.0-70.0) Monocytes (%) (Auto) 8.1 % (0.0-8.0) 9.5 % (0.0-8.0) 12.3 % (0.0-8.0) Lymphocytes # (Auto) 0.9 TH/MM3 0.8 TH/MM3 (1.0-4.8) (1.0-4.8) Sodium Level 134 MEQ/L 135 MEQ/L (136-145) (136-145) Carbon Dioxide Level 20.6 MEQ/L (21.0-32.0) Blood Urea Nitrogen 5 MG/DL (7-18) 3 MG/DL (7-18) 4 MG/DL (7-18) Creatinine 0.49 MG/DL (0.50-1.00) Calcium Level 7.8 MG/DL 8.2 MG/DL 8.3 MG/DL (8.5-10.1) (8.5-10.1) (8.5-10.1) Magnesium Level 1.3 MG/DL (1.5-2.5) Red Blood Count 3.79 MIL/MM3 3.74 MIL/MM3 (4.00-5.30) (4.00-5.30) Hematocrit 32.7 % 32.8 % (35.0-46.0) (35.0-46.0) Basophils (%) (Auto) 2.7 % (0.0-2.0) Prothrombin Time 61.0 SEC 56.0 SEC (9.8-11.6) (9.8-11.6) White Blood Count 3.4 TH/MM3 (4.0-11.0) Random Glucose 73 MG/DL (74-106) Alkaline Phosphatase 204 U/L (45-117) Total Protein 5.2 GM/DL (6.4-8.2) Albumin 2.0 GM/DL (3.4-5.0) Imaging Last Impressions Abdomen/Pelvis CT 09/22/162005 Signed Impressions: Service Date/Time: September 21:35 - CONCLUSION: 1. Abnormal appearance of the colon with concentric thickening of the wall of the cecum and from the splenic flexure to the rectum. Diffuse nature suggests colitis. 2. Small patchy infiltrate in the right costophrenic angle. Aron Asher MD PE at Discharge GENERAL: This is a pleasant elderly female lying comfortably in bed, answering questions appropriately. No acute distress. SKIN: No rashes, ecchymoses or lesions. Cool and dry. HEAD: Atraumatic. Normocephalic. No temporal or scalp tenderness. EYES: Nonspecific edema around the eyes. No redness. Pupils equal round and reactive. Extraocular motions intact. No scleral icterus. No injection or drainage. ENT: Nose without bleeding, purulent drainage or septal hematoma. Throat without erythema, tonsillar hypertrophy or exudate. Uvula midline. Airway patent. NECK: Trachea midline. No JVD or lymphadenopathy. Supple, nontender, no meningeal signs. CARDIOVASCULAR: Regular rate and rhythm without murmurs, gallops, or rubs. RESPIRATORY: Clear to auscultation. Breath sounds equal bilaterally. No wheezes , rales, or rhonchi. GASTROINTESTINAL: Abdomen soft, nontender to palpation. No hepato-splenomegaly, or palpable masses. Positive bowel sounds. MUSCULOSKELETAL: small 3 cm round ecchymosis on right hip, full ROM. NEUROLOGICAL: Awake and alert. Cranial nerves II through XII intact. Motor and sensory grossly within normal limits. Five out of 5 muscle strength in all muscle groups. Normal speech. Hospital Course Patient was found to have epidemiologic 027 strain of Clostridium. As this was a recurrent case, infectious disease was consulted. She was placed on vancomycin 4 times a day. She recovered very well. Her strength improved. On discharge, she had one 2 bowel movements in 24 hours. Physical therapy recommended PT at [facility]. The patient's INR did increase while on antibiotics. Her Coumadin has been placed on hold and her INR has been checked frequently. Her INR will need to continue to be checked as an outpatient until therapeutic. An INR lab order was placed for this , 09/29. The patient was concerned about high blood pressure, we started her back on her previous medications losartan 25 mg daily. She will need to complete the vancomycin taper as discussed below. Pt Condition on Discharge: Fair Discharge Disposition: [facility] with [facility] Discharge Instructions DIET: Follow Instructions for: As Tolerated, No Restrictions Activities you can perform: See Additionl Instruction Other Activity Instructions: per PT Follow up Referrals: PCP Follow-up - 3-5 Days New Orders: PT/INR - 09/29/16 New Medications: Vancomycin (Vancomycin) 125 Mg Cap 125 MG PO QID Infection #40 Ref 0 CAP Vancomycin (Vancomycin) 125 Mg Cap 125 MG PO BID Infection #14 Ref 0 CAP Vancomycin (Vancomycin) 125 Mg Cap 125 MG PO DAILY Infection #7 Ref 0 CAP Vancomycin (Vancomycin) 125 Mg Cap 125 MG PO DIRECTED Infection #4 Ref 0 CAP Vancomycin (Vancomycin) 125 Mg Cap 125 MG PO Q3D Infection #5 Ref 0 CAP Losartan (Cozaar) 25 Mg Tab 25 MG PO DAILY #30 TAB Warfarin (Coumadin) 2 Mg Tab 2 MG PO DAILY@16 #30 TAB Continued Medications: Acetaminophen (Tylenol) 325 Mg Tab 650 MG PO Q4H PRN PAIN SCALE 1 TO 10 Ref 0 TAB Albuterol 8.5 GM Inh (Proair Hfa 8.5 GM Inh) 90 Mcg/Act Aer 2 PUFF INH Q6H 108 mcg/actuation PRN SHORTNESS OF BREATH #1 Ref 0 INHALER Allopurinol (Allopurinol) 100 Mg Tab 100 MG PO DAILY Gout #30 Ref 0 TAB Diltiazem ER 24 HR (Diltiazem ER 24 HR) 180 Mg Sujata 180 MG PO DAILY #30 Ref 0 TAB Gabapentin (Gabapentin) 100 Mg Cap 100 MG PO HS #30 Ref 5 CAP Levothyroxine (Levothyroxine) 25 Mcg Tab 25 MCG PO DAILY Thyroid #30 Ref 0 TAB Saccharomyces Boulardii (Probiotic) 250 Mg Cap 250 MG PO BID Nutritional Supplement Ref 0 CAP Simethicone (Gas-X Ultra Strength) 180 Mg Cap 180 MG PO BID PRN GAS RETENTION Ref 0 CAP Discontinued Medications: Warfarin (Warfarin) 2 Mg Tab 2 MG PO DAILY Blood Clot Prevention #30 Ref 0 TAB Rakesh Carson MD R2 Sep 28, 2016 08:44
[2016-09-28] MEDS: SODIUM CHLORIDE 0.9% FLUSH 10 ML FLUSH IV FLUSH SCH (08:45)
[2016-09-28] MEDS: LOSARTAN 25 MG TAB PO SCH (08:46)
[2016-09-28] MEDS: VANCOMYCIN 500 MG VIAL (FOR ORAL USE ONLY) PO SCH ×2 (08:46→12:00)
[2016-09-28] MEDS: DILTIAZEM-CD 180 MG CAP ER PO SCH (08:46)
[2016-09-28 12:00] VITALS: BP 136/64; PULSE 75; RESP 20; TEMP 97.9; O2SAT 96
== END 2016-09-28 16:06 | DRG 372 ==
LOC: NEPC 18:57 → NEDA 22:33 → N04B 09-23 00:16
PROVIDERS: ADMIT Family Medicine; ATTEND Family Medicine
DX: A04.7 Enterocolitis due to Clostridium difficile (principal); N17.9 Acute kidney failure, unspecified; J44.9 Chronic obstructive pulmonary disease, unspecified; I71.2 Thoracic aortic aneurysm, without rupture; E86.0 Dehydration; M06.9 Rheumatoid arthritis, unspecified; E87.6 Hypokalemia; E03.9 Hypothyroidism, unspecified; I10 Essential (primary) hypertension; Z66 Do not resuscitate; E78.5 Hyperlipidemia, unspecified; I25.10 Atherosclerotic heart disease of native coronary artery without angina pectoris; Z95.2 Presence of prosthetic heart valve; Z95.5 Presence of coronary angioplasty implant and graft; Z87.891 Personal history of nicotine dependence; Z86.19 Personal history of other infectious and parasitic diseases; Z95.1 Presence of aortocoronary bypass graft; M25.551 Pain in right hip; W18.11XA Fall from or off toilet without subsequent striking against object, initial encounter; Y92.230 Patient room in hospital as the place of occurrence of the external cause
CPT/HCPCS: 74177; 76937; 80048; 80053; 81001; 83605; 83735; 85025; 85610; 85730; 87040; 87086; 87493; 87506; 96360; J1200; J3475; J7030; Q9967

== ENCOUNTER 2016-11-23 16:05 | Inpatient (IN) | payer MEDICARE ==
[~2016-11-23] VITALS: Ht 162.6 cm; Wt 62.7 kg
[~2016-11-23 16:05] MED LIST changes: -ALLO100T PO; +CHOL4POW3 PO; +COZA25TA PO; +HYDR12.57 PO; +VANC125C3 PO; +WARF-58 PO; -WARF4TAB51 PO
[2016-11-23] MEDS ORDERED: IOHEXOL 350 MG/ML 10 ML VIAL (for RAD DIAG) IVCONTRAST ONE (16:06)
[2016-11-23 16:07] VITALS: BP 204/88; PULSE 82; RESP 24; TEMP 98.4; O2SAT 99
[2016-11-23] MEDS ORDERED: SODIUM CHLOR 0.9% 1000 ML INJ 1,000 ML IV SCH (16:32)
[2016-11-23] MEDS ORDERED: ACETAMINOPHEN 325 MG TAB PO ONE (16:45)
[2016-11-23] MEDS ORDERED: ONDANSETRON HCL 4 MG/2 ML VIAL IVP ONE (16:45)
[2016-11-23] MEDS ORDERED: PANTOPRAZOLE INJ 80 MG in SODIUM CHLORIDE 0.9% INJ 100 ML IV SCH (16:45)
--- NOTE | 2016-11-23 16:49 | PD ---
HPI Chief Complaint: GI Complaint Time Seen by Provider: 16:17 Travel History International Travel<30 days: No Contact w/Intl Traveler<30days: No Traveled to known affect area: No History of Present Illness HPI 80-year-old female that presents to the ED for evaluation of possible GI bleed. Patient has a history of C. difficile and was admitted recently in September for this. Per patient she has since finished antibiotic which was vancomycin. She' s had a lot of liquidy stools since and she was recently put on a new medication to help for more stool which she started yesterday and since yesterday she's been having bloody stools. Today she passed "a clot". She has a lot of cramping pain on her lower abdomen. She states that she cannot really take much for pain as she is allergic to all the narcotics. She states that her discomfort is 7 out of 10. She denies any fevers chills or sweats. She states that she has some cramping pain when she has a stool sent for C. difficile but since yesterday became more severe. She denies any urinary symptoms. She takes Coumadin. PFSH Past Medical History Hx Anticoagulant Therapy: Yes (COUMADIN) Anemia: Yes Arthritis: Yes Cardiovascular Problems: Yes (MECHANICAL AORTIC VALVE) COPD: Yes Coronary Artery Disease: Yes Diminished Hearing: Yes (BILATERAL, MOSTLY R) Gastrointestinal Disorders: Yes (CHRONIC COLITIS) Genitourinary: No Musculoskeletal: Yes Neurologic: No Reproductive: No Respiratory: Yes Thyroid Disease: Yes (HYPO) ?: Not Past Surgical History Abdominal Surgery: Yes (COLON RESECTION) Cardiac Surgery: Yes (VALVE REPLACEMENT) Cholecystectomy: Yes Coronary Artery Bypass Graft: Yes Hysterectomy: Yes Other Surgery: Yes (CERVICAL FUSION, CAROTID ) Social History Alcohol Use: No Tobacco Use: No Substance Use: No Allergies-Medications (Allergen,Severity, Reaction): Coded Allergies: bee venom protein (honey bee) (Unverified Allergy, Severe, shock, 11/02/16) hydromorphone (Unverified Allergy, Severe, coded, 11/02/16) Sulfa (Sulfonamide Antibiotics) (Unverified Allergy, Intermediate, pass out, hives, 11/02/16) metronidazole (Unverified Allergy, Intermediate, seizures, 11/02/16) codeine (Unverified Allergy, Mild, pass out, 11/02/16) meperidine (Unverified Allergy, Mild, pass out, 11/02/16) morphine (Unverified Allergy, Mild, pass out, 11/02/16) penicillin G (Unverified Allergy, Mild, rash, 11/02/16) Influenza Virus Vaccines (Unverified Allergy, Unknown, allergic to eggs, ) vancomycin (Unverified Allergy, Unknown, hives, 11/02/16) PT CAN RECEIVE ORAL, BUT NOT IV Reported Meds & Prescriptions Reported Meds & Active Scripts Active Cholestyramine 4 Gm/Dose Powd 4 Gm PO BID 1 level scoopful contains 4 grams of cholestyramine. Give 1 hr before or 2 hrs after any other medication Hydrochlorothiazide 12.5 Mg Cap 12.5 Mg PO DAILY Cozaar (Losartan Potassium) 25 Mg Tab 25 Mg PO DAILY Gabapentin 100 Mg Cap 100 Mg PO HS Reported Warfarin 3 Mg Tab 3 Mg PO DIRECTED 4.5mg (1 1/2 3mg tab) Mo/3mg TuWeThFrSaSu Gas-X Ultra Strength (Simethicone) 180 Mg Cap 180 Mg PO BID PRN Tylenol (Acetaminophen) 325 Mg Tab 650 Mg PO Q4H PRN Proair Hfa 8.5 GM Inh (Albuterol Sulfate) 90 Mcg/Act Aer 2 Puff INH Q6H PRN 108 mcg/actuation Probiotic (Saccharomyces Boulardii) 250 Mg Cap 250 Mg PO BID Levothyroxine (Levothyroxine Sodium) 25 Mcg Tab 25 Mcg PO DAILY Diltiazem ER 24 HR 180 Mg Sujata 180 Mg PO DAILY Review of Systems Except as stated in HPI: all other systems reviewed are Neg Physical Exam Narrative GENERAL: SKIN: Warm and dry. HEAD: Atraumatic. Normocephalic. EYES: Pupils equal and round. No scleral icterus. No injection or drainage. ENT: No nasal bleeding or discharge. Mucous membranes pink and moist. Tongue is midline. No uvula deviation. NECK: Trachea midline. No JVD. CARDIOVASCULAR: Regular rate and rhythm. No murmurs, S3, S4. RESPIRATORY: No accessory muscle use. Clear to auscultation. Breath sounds equal bilaterally. GASTROINTESTINAL: Abdomen soft, non-tender, nondistended. Hepatic and splenic margins not palpable. Rectal exam was done and show no sign of obvious hemorrhoid. This was done with female nurse present. Patient did have positive Hemoccult and the stool that I was able to get did have specks of blood. MUSCULOSKELETAL: Extremities without clubbing, cyanosis, or edema. No obvious deformities. Full range of motion of the upper and lower extremities bilaterally. 2+ pulses bilaterally. NEUROLOGICAL: Awake and alert. No obvious cranial nerve deficits. Motor grossly within normal limits. Five out of 5 muscle strength in the arms and legs. Normal speech. PSYCHIATRIC: Appropriate mood and affect; insight and judgment normal. Data Data Last Documented VS Vital Signs Date Time Temp Pulse Resp B/P (MAP) Pulse Ox O2 Delivery O2 Flow Rate FiO2 11/23/16 17:00 80 20 169/74 (105) 100 Room Air 11/23/16 16:07 98.4 Orders Orders Complete Blood Count With Diff (11/23/16 16:32) Comprehensive Metabolic Panel (11/23/16 16:32) Lipase (11/23/16 16:32) Lactic Acid (11/23/16 16:32) Prothrombin Time / Inr (Pt) (11/23/16 16:32) Act Partial Throm Time (Ptt) (11/23/16 16:32) Urinalysis - C+S If Indicated (11/23/16 16:32) Ct Abd/Pel W Iv Contrast(Rout) (11/23/16 16:32) Iv Access Insert/Monitor (11/23/16 16:32) Ecg Monitoring (11/23/16 16:32) Oximetry (11/23/16 16:32) Ondansetron Inj (Zofran Inj) (11/23/16 16:45) Sodium Chlor 0.9% 1000 Ml Inj (Ns 1000 M (11/23/16 16:32) Pantoprazole Inj (Protonix Inj) (11/23/16 16:45) Acetaminophen (Tylenol) (11/23/16 16:45) Type And Screen (11/23/16 16:46) C Diff Toxin Pcr (11/23/16 16:49) Phytonadione Inj (Vitamin K Inj) (11/23/16 18:00) Isolation ,20 (11/23/16 19:34) Equip, Isolation Cart (11/23/16 19:34) Vancomycin For Oral Use Only (Vancomycin (11/23/16 19:45) Iohexol 350 Inj (Omnipaque 350 Inj) (11/23/16 16:06) Admit Order (Ed Use Only) (11/23/16 20:18) Labs Laboratory Tests Test 11/23/16 16:50 11/23/16 16:55 11/23/16 17:15 Lactic Acid Level 1.2 mmol/L White Blood Count 11.2 TH/MM3 Red Blood Count 4.21 MIL/MM3 Hemoglobin 12.0 GM/DL Hematocrit 37.0 % Mean Corpuscular Volume 87.8 FL Mean Corpuscular Hemoglobin 28.6 PG Mean Corpuscular Hemoglobin Concent 32.6 % Red Cell Distribution Width 16.3 % Platelet Count 350 TH/MM3 Mean Platelet Volume 8.7 FL Neutrophils (%) (Auto) 78.2 % Lymphocytes (%) (Auto) 12.4 % Monocytes (%) (Auto) 7.6 % Eosinophils (%) (Auto) 0.7 % Basophils (%) (Auto) 1.1 % Neutrophils # (Auto) 8.7 TH/MM3 Lymphocytes # (Auto) 1.4 TH/MM3 Monocytes # (Auto) 0.8 TH/MM3 Eosinophils # (Auto) 0.1 TH/MM3 Basophils # (Auto) 0.1 TH/MM3 CBC Comment DIFF FINAL Differential Comment Prothrombin Time 78.6 SEC Prothromb Time International Ratio 6.6 RATIO Activated Partial Thromboplast Time 83.6 SEC Urine Color YELLOW Urine Turbidity CLEAR Urine pH 6.5 Urine Specific [place] 1.006 Urine Protein NEG mg/dL Urine Glucose (UA) NEG mg/dL Urine Ketones NEG mg/dL Urine Occult Blood NEG Urine Nitrite NEG Urine Bilirubin NEG Urine Urobilinogen LESS THAN 2.0 MG/DL Urine Leukocyte Esterase NEG Urine RBC LESS THAN 1 /hpf Urine WBC LESS THAN 1 /hpf Microscopic Urinalysis Comment CULT NOT INDICATED Blood Urea Nitrogen 13 MG/DL Creatinine 0.85 MG/DL Random Glucose 88 MG/DL Total Protein 7.5 GM/DL Albumin 2.9 GM/DL Calcium Level 9.4 MG/DL Alkaline Phosphatase 856 U/L Aspartate Amino Transf (AST/SGOT) 21 U/L Alanine Aminotransferase (ALT/SGPT) 31 U/L Total Bilirubin 0.5 MG/DL Sodium Level 132 MEQ/L Potassium Level 3.9 MEQ/L Chloride Level 97 MEQ/L Carbon Dioxide Level 26.4 MEQ/L Anion Gap 9 MEQ/L Estimat Glomerular Filtration Rate 64 ML/MIN Lipase 95 U/L Stool C. difficile Toxin (PCR) POSITIVE Stl C. difficile Toxin Epiderm 027 PRESUMPTIVE POSITIVE MDM Medical Decision Making Medical Screen Exam Complete: Yes Emergency Medical Condition: Yes Medical Record Reviewed: Yes Interpretation(s) CBC & BMP Diagram 11/23/16 16:55 Total Protein 7.5, Albumin 2.9 L, Calcium Level 9.4, Alkaline Phosphatase 856 H , Aspartate Amino Transf (AST/SGOT) 21, Alanine Aminotransferase (ALT/SGPT) 31, Total Bilirubin 0.5 Cdiff positive UA negative Coags with INR in the 6s CT shows colitis consistent with previous exam Differential Diagnosis Colitis versus GI bleed versus Clostridium differential is still I versus normal exam versus hypertension versus diverticulitis Narrative Course 80-year-old female that presents to the ED for evaluation of abdominal pain with GI bleed. Patient was properly examined and was found to have signs and symptoms consistent with GI bleed. Unclear etiology of patient does have risk factors for severe illness including taking blood thinner. Labs and imaging were ordered. Labs and imaging came back positive for colitis, C. difficile and Coagulopathy. Case discussed with my attending Dr Bradley who evaluated the patient and who recommends admission. This was discussed with the patient who is in agreement with plan. Patient was given oral Vanco which is the only medication she can take for this. She was also given vitamin K for her coagulopathy secondary to bleeding. Case discussed with the residents who agreed to admission. [facility] Point of Care Internal Pos. & Neg. Controls: Passed Fecal Specimen Occult Blood: Positive Diagnosis Primary Impression: Clostridium difficile colitis Additional Impressions: GI bleed Qualified Codes: K92.2 - Gastrointestinal hemorrhage, unspecified Warfarin-induced coagulopathy Admitting Information Admitting Physician Requests: Admit Jude Cooper Nov 23, 2016 16:49
[2016-11-23 17:00] VITALS: BP 169/74; PULSE 80; RESP 20; O2SAT 100
[2016-11-23 17:15] LABS: AUTOMATED NEUTROPHIL # 8.7 TH/MM3 (1.8-7.7); BASOPHIL # 0.1 TH/MM3 (0-0.2); BASOPHIL % 1.1 % (0.0-2.0); EOSINOPHIL # 0.1 TH/MM3 (0-0.4); EOSINOPHIL % 0.7 % (0.0-4.0); HEMO FLAGS DIFF FINAL; LYMPH % 12.4 % (9.0-44.0); LYMPHOCYTE # 1.4 TH/MM3 (1.0-4.8); MEAN CELL VOLUME 87.8 FL (80.0-100.0); MEAN CORPUSCULAR HEMOGLOBIN 28.6 PG (27.0-34.0); MEAN CORPUSCULAR HGB CONC 32.6 % (32.0-36.0); MONO % 7.6 % (0.0-8.0); NEUT % 78.2 % (16.0-70.0); PLATELET COUNT 350 TH/MM3 (150-450); RED BLOOD COUNT 4.21 MIL/MM3 (4.00-5.30); RED CELL DISTRIBUTION WIDTH 16.3 % (11.6-17.2); WHITE BLOOD COUNT 11.2 TH/MM3 (4.0-11.0)
[2016-11-23 17:31] LABS: BLOOD, URINE NEG (NEG); GLUCOSE,URINE NEG (NEG); KETONE, URINE NEG (NEG); NITRITE,URINE NEG (NEG); PH, URINE 6.5 (5.0-8.5); URINE COLOR YELLOW (YELLW/STRAW)
[2016-11-23 17:37] LABS: COMMENT (UR) CULT NOT INDICATED; CULTURE IF INDICATED CULT NOT INDICATED
[2016-11-23 17:47] LABS: ALKALINE PHOSPHATASE 856 U/L (45-117); ALT (GPT) 31 U/L (10-53); TOTAL BILIRUBIN ADULT 0.5 MG/DL (0.2-1.0)
[2016-11-23 17:48] LABS: PROTHROMBIN TIME - PATIENT 78.6 SEC (9.8-11.6)
[2016-11-23 17:51] LABS: APTT (PATIENT) 83.6 SEC (24.3-30.1)
[2016-11-23 17:52] LABS: INTERNATIONAL NORMALIZED RATIO 6.6 RATIO
[2016-11-23 17:57] LABS: ANION GAP 9 MEQ/L (5-15); AST (GOT) 21 U/L (15-37); BICARBONATE 26.4 MEQ/L (21.0-32.0); BLOOD UREA NITROGEN 13 MG/DL (7-18); CHLORIDE 97 MEQ/L (98-107); GLOMERULAR FILTRATION RATE 64 ML/MIN (>89); POTASSIUM 3.9 MEQ/L (3.5-5.1); SODIUM (NA) 132 MEQ/L (136-145)
[2016-11-23] MEDS ORDERED: PHYTONADIONE INJ 10 MG in SODIUM CHLORIDE 0.9% INJ 50 ML IV ONE (18:00)
[2016-11-23 19:10] LABS: C. DIFF EPI 027 PRESUMPTIVE POSITIVE (NEGATIVE)
--- NOTE | 2016-11-23 19:19 | PD ---
Physical Exam Narrative I, Dr. Bradley, have reviewed the advance practice practitioner's documentation and am in agreement, met with the patient face to face, made the diagnosis, and the medical decision making was done by me. *My assessment and Findings: Colitis vs. AV malformation vs. diverticulitis 80yo F with history of cdiff, mechanical valve replacement on coumadin here with c/o blood in stool since yesterday. States it is red and has some abdominal pain. States she took her usual 3mg of coumadin last night. Denies any chest pain, sob. Pt had bowel movement and there was a dark red clot. Hemaprompt positive in ED. INR supratherapeutic at 6.6. Since pt has GI bleed , vitamin K 10mg IV given to reverse coagulopathy. Hemoglobin 12. Vital signs stable. Alk phos elevated. +Cdiff. CTa/p showed left sided colitis. Pt given oral vanco and admitted to hospitalist. Data Data Last Documented VS Vital Signs Date Time Temp Pulse Resp B/P (MAP) Pulse Ox O2 Delivery O2 Flow Rate FiO2 11/23/16 17:00 80 20 169/74 (105) 100 Room Air 11/23/16 16:07 98.4 Orders Orders Complete Blood Count With Diff (11/23/16 16:32) Comprehensive Metabolic Panel (11/23/16 16:32) Lipase (11/23/16 16:32) Lactic Acid (11/23/16 16:32) Prothrombin Time / Inr (Pt) (11/23/16 16:32) Act Partial Throm Time (Ptt) (11/23/16 16:32) Urinalysis - C+S If Indicated (11/23/16 16:32) Ct Abd/Pel W Iv Contrast(Rout) (11/23/16 16:32) Iv Access Insert/Monitor (11/23/16 16:32) Ecg Monitoring (11/23/16 16:32) Oximetry (11/23/16 16:32) Ondansetron Inj (Zofran Inj) (11/23/16 16:45) Sodium Chlor 0.9% 1000 Ml Inj (Ns 1000 M (11/23/16 16:32) Pantoprazole Inj (Protonix Inj) (11/23/16 16:45) Acetaminophen (Tylenol) (11/23/16 16:45) Type And Screen (11/23/16 16:46) C Diff Toxin Pcr (11/23/16 16:49) Phytonadione Inj (Vitamin K Inj) (11/23/16 18:00) Isolation 08,20 (11/23/16 19:34) Equip, Isolation Cart (11/23/16 19:34) Vancomycin For Oral Use Only (Vancomycin (11/23/16 19:45) Iohexol 350 Inj (Omnipaque 350 Inj) (11/23/16 16:06) Admit Order (Ed Use Only) (11/23/16 20:18) Labs Laboratory Tests Test 11/23/16 16:50 11/23/16 16:55 11/23/16 17:15 Lactic Acid Level 1.2 mmol/L White Blood Count 11.2 TH/MM3 Red Blood Count 4.21 MIL/MM3 Hemoglobin 12.0 GM/DL Hematocrit 37.0 % Mean Corpuscular Volume 87.8 FL Mean Corpuscular Hemoglobin 28.6 PG Mean Corpuscular Hemoglobin Concent 32.6 % Red Cell Distribution Width 16.3 % Platelet Count 350 TH/MM3 Mean Platelet Volume 8.7 FL Neutrophils (%) (Auto) 78.2 % Lymphocytes (%) (Auto) 12.4 % Monocytes (%) (Auto) 7.6 % Eosinophils (%) (Auto) 0.7 % Basophils (%) (Auto) 1.1 % Neutrophils # (Auto) 8.7 TH/MM3 Lymphocytes # (Auto) 1.4 TH/MM3 Monocytes # (Auto) 0.8 TH/MM3 Eosinophils # (Auto) 0.1 TH/MM3 Basophils # (Auto) 0.1 TH/MM3 CBC Comment DIFF FINAL Differential Comment Prothrombin Time 78.6 SEC Prothromb Time International Ratio 6.6 RATIO Activated Partial Thromboplast Time 83.6 SEC Urine Color YELLOW Urine Turbidity CLEAR Urine pH 6.5 Urine Specific [place] 1.006 Urine Protein NEG mg/dL Urine Glucose (UA) NEG mg/dL Urine Ketones NEG mg/dL Urine Occult Blood NEG Urine Nitrite NEG Urine Bilirubin NEG Urine Urobilinogen LESS THAN 2.0 MG/DL Urine Leukocyte Esterase NEG Urine RBC LESS THAN 1 /hpf Urine WBC LESS THAN 1 /hpf Microscopic Urinalysis Comment CULT NOT INDICATED Blood Urea Nitrogen 13 MG/DL Creatinine 0.85 MG/DL Random Glucose 88 MG/DL Total Protein 7.5 GM/DL Albumin 2.9 GM/DL Calcium Level 9.4 MG/DL Alkaline Phosphatase 856 U/L Aspartate Amino Transf (AST/SGOT) 21 U/L Alanine Aminotransferase (ALT/SGPT) 31 U/L Total Bilirubin 0.5 MG/DL Sodium Level 132 MEQ/L Potassium Level 3.9 MEQ/L Chloride Level 97 MEQ/L Carbon Dioxide Level 26.4 MEQ/L Anion Gap 9 MEQ/L Estimat Glomerular Filtration Rate 64 ML/MIN Lipase 95 U/L Stool C. difficile Toxin (PCR) POSITIVE Stl C. difficile Toxin Epiderm 027 PRESUMPTIVE POSITIVE MDM Supervised Visit with RAJNI: Yes Diagnosis Primary Impression: Colitis Additional Impression: Supratherapeutic INR Admitting Information Admitting Physician Requests: Neelam Mccord DO Nov 23, 2016 19:19
[2016-11-23] MEDS ORDERED: VANCOMYCIN 500 MG VIAL (FOR ORAL USE ONLY) PO SCH (19:45)
--- NOTE | 2016-11-23 20:00 | RADRPT ---
EXAM DATE/TIME: 11/23/2016 19:23 [facility] COMPARISON: CT ABDOMEN & PELVIS W CONTRAST, September 22, 2016, 21:35. INDICATIONS : Lower abdomen pain, bleeding. IV CONTRAST: 96 cc Omnipaque 350 (iohexol) IV ORAL CONTRAST: No oral contrast ingested. RADIATION DOSE: 9.96 CTDIvol (mGy) MEDICAL HISTORY : Hypothyroidism. SURGICAL HISTORY : CABG Cholecystectomy.Hysterectomy.Mechanical aortic valve, colon resection. ENCOUNTER: Initial ACUITY: 2 days PAIN SCALE: 3/10 LOCATION: Bilateral lower quadrant TECHNIQUE: Volumetric scanning of the abdomen and pelvis was performed. Using automated exposure control and ad justment of the mA and/or kV according to patient size, radiation dose was kept as low as reasonably achievable to obtain optimal diagnostic quality images. DICOM format image data is available electro nically for review and comparison. FINDINGS: Compared to Lasix. Findings are similar with abnormal mural thickening and pericolonic fat stranding involving the left colon and extending into the rectosigmoid. Is also mild mural thickening of the ce [place]apha region. Findings are characteristic of a colitis. Stable postinflammatory changes right costophrenic angle. No new consolidation or effusion. Mild fatty liver. Previous cholecystectomy. No acute findings in the spleen, adrenals, kidneys and pa ncreas. No free fluid or free air. No bowel obstruction. CONCLUSION: 1. Left-sided colitis also involving rectosigmoid. Minimal mural thickening in the cecal region. No a bscess, obstruction, free fluid or free air. Findings are similar to September 22. Khadar Watson MD on November 23, 2016 at 19:53 Board Certified Radiologist. This report was verified electronically.
--- NOTE | 2016-11-23 20:20 | HHI.HP ---
[facility] Service Family Medicine Primary Care Physician lAex Noel MD Admission Diagnosis Diagnoses: International Travel<30 Days: No Contact w/Intl Traveler<30days: No Known Affected Area: No History of Present Illness 80 year old female, patient of Dr. Noel, here from assisted living facility at [facility]. She is presenting with a two day history of bright red blood per rectum. Started yesterday morning when she saw streaks of bright red blood on the toilet paper after wiping. This morning it started to occur more often, and she had 5 to 6 episodes just today. She reports that her stools are formed and even harder than usual since starting cholestyramine. She is not straining to get the stools out. However, when she has a bowel movement, she is only getting a very small amount of stools along with bright red small blood clots. She also notes that the blood clots appear to also have mucous with it. Of note, she was admitted to the hospital on September 22 for c.diff colitis. She believes she has had two or three episodes of c.diff colitis in the past. Currently her c.diff test is positive and her CT scan is showing non-specific colitis, however, the CT scan appears the same as in September and she is not having diarrhea, suggesting this may not be an actual repeat c.diff infection. She reports no fevers or night sweats. She started taking cholestyramine yesterday which she is attributing to her onset of symptoms. During her last hospital admission she was started on a vancomycin taper recommended by infectious disease. At that time her c.diff result was epidemiologic 027 strain positive. Of note, she also has a mechanical aortic valve and takes Coumadin. She is presenting with supratherapeutic INR at 6.6, and was given 10 mg vitamin K infusion in the ED. Associated symptoms include crampy lower abdominal pain, lots of belching for the last couple of days, decreased appetite. She has no nausea or vomiting. Review of Systems Constitutional: COMPLAINS OF: Fatigue, Weight loss, Change in appetite, DENIES : Diaphoretic episodes, Fever, Weight gain, Chills, Dizziness, Night Sweats Endocrine: DENIES: Polydipsia, Polyuria Eyes: DENIES: Blurred vision, Eye pain, Double Vision Ears, nose, mouth, throat: COMPLAINS OF: Nasal discharge, DENIES: Vertigo, Running Nose Respiratory: DENIES: Cough, Hemoptysis, Sputum production, Shortness of breath Cardiovascular: DENIES: Chest pain, Dyspnea on Exertion, Lower Extremity Edema Gastrointestinal: COMPLAINS OF: Abdominal pain, Bloody stools, Constipation, DENIES: Black stools, Diarrhea, Nausea, Vomiting Genitourinary: DENIES: Urgency, Dysuria Musculoskeletal: DENIES: Joint pain, Muscle aches, Neck pain Hematologic/lymphatic: DENIES: Bruising Immunologic/allergic: DENIES: Eczema Neurologic: DENIES: Localized weakness, Seizures Psychiatric: DENIES: Anxiety, Mood changes, Depression Past Family Social History Past Medical History Past Medical History: Anemia - sees folded cloth taper in [place], thinks its from heart valve Colitis with C. 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 Gaviria, fire control officer. 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 Give 1 hr before or 2 hrs after any other medication Hydrochlorothiazide 12.5 Mg Cap 12.5 Mg PO DAILY Cozaar (Losartan Potassium) 25 Mg Tab 25 Mg PO DAILY Gabapentin 100 Mg Cap 100 Mg PO HS Reported Warfarin 3 Mg Tab 3 Mg PO DIRECTED 4.5mg (1 1/2 3mg tab) Mo/3mg TuWeThFrSaSu Gas-X Ultra Strength (Simethicone) 180 Mg Cap 180 Mg PO BID PRN Tylenol (Acetaminophen) 325 Mg Tab 650 Mg PO Q4H PRN Proair Hfa 8.5 GM Inh (Albuterol Sulfate) 90 Mcg/Act Aer 2 Puff INH Q6H PRN 108 mcg/actuation Probiotic (Saccharomyces Boulardii) 250 Mg Cap 250 Mg PO BID Levothyroxine (Levothyroxine Sodium) 25 Mcg Tab 25 Mcg PO DAILY Diltiazem ER 24 HR 180 Mg Sujata 180 Mg PO DAILY Allergies: Coded Allergies: bee venom protein (honey bee) (Unverified Allergy, Severe, shock, 11/02/16) hydromorphone (Unverified Allergy, Severe, coded, 11/02/16) Sulfa (Sulfonamide Antibiotics) (Unverified Allergy, Intermediate, pass out, hives, 11/02/16) metronidazole (Unverified Allergy, Intermediate, seizures, 11/02/16) codeine (Unverified Allergy, Mild, pass out, 11/02/16) meperidine (Unverified Allergy, Mild, pass out, 11/02/16) morphine (Unverified Allergy, Mild, pass out, 11/02/16) penicillin G (Unverified Allergy, Mild, rash, 11/02/16) Influenza Virus Vaccines (Unverified Allergy, Unknown, allergic to eggs, ) vancomycin (Unverified Allergy, Unknown, hives, 11/02/16) PT CAN RECEIVE ORAL, BUT NOT IV Family History Family History Father: of heart failure at 84 Mother: of complications of an aortic aneurysm at 90 Siblings: One brother and one sister from lung cancer Children: 2 sons alive and well Social History Social History Marital Status: Living Situation: Recently was living in a [facility] until hospitalized earlier this year. Place in [facility] [place] [facility] for [facility] and now transitioned to the assisted living unit at [facility]. This patient was originally from [place] but has lived much of her life in the [facility]. Education: Post high school Work history: Retired respiratory therapist Tobacco: Quit approximately 20+ years ago, moderate use prior to quitting Alcohol: None Illicit drug use: none Physical Exam Vital Signs Vital Signs Date Time Temp Pulse Resp B/P (MAP) Pulse Ox O2 Delivery O2 Flow Rate FiO2 11/23/16 17:00 80 20 169/74 (105) 100 Room Air 11/23/16 16:07 98.4 82 24 204/88 (126) 99 Room Air Physical Exam GENERAL: Lying in bed, no distress SKIN: No rashes or lesions HEENT: normocephalic, no pale conjunctiva, no nasal discharge, normal pharynx, moist mucous membranes NECK: No thyromegaly, no lymphadenopathy CARDIOVASCULAR: Regular rate and rhythm without murmurs, gallops, or rubs. Prominent closing of valve. RESPIRATORY: Clear to auscultation. Breath sounds equal bilaterally. No wheezes , rales, or rhonchi. GASTROINTESTINAL: Mildly tender to palpation across the lower abdomen, normal bowel sounds. RECTAL: No obvious external or internal hemorrhoids, hemoccult positive, small amount of bright red blood MUSCULOSKELETAL: No edema or cyanosis NEUROLOGICAL: Awake and alert. Cranial nerves II through XII intact. Laboratory Laboratory Tests Test 11/23/16 16:50 11/23/16 16:55 11/23/16 17:15 Lactic Acid Level 1.2 White Blood Count 11.2 Red Blood Count 4.21 Hemoglobin 12.0 Hematocrit 37.0 Mean Corpuscular Volume 87.8 Mean Corpuscular Hemoglobin 28.6 Mean Corpuscular Hemoglobin Concent 32.6 Red Cell Distribution Width 16.3 Platelet Count 350 Mean Platelet Volume 8.7 Neutrophils (%) (Auto) 78.2 Lymphocytes (%) (Auto) 12.4 Monocytes (%) (Auto) 7.6 Eosinophils (%) (Auto) 0.7 Basophils (%) (Auto) 1.1 Neutrophils # (Auto) 8.7 Lymphocytes # (Auto) 1.4 Monocytes # (Auto) 0.8 Eosinophils # (Auto) 0.1 Basophils # (Auto) 0.1 CBC Comment DIFF FINAL Differential Comment Prothrombin Time 78.6 Prothromb Time International Ratio 6.6 Activated Partial Thromboplast Time 83.6 Urine Color YELLOW Urine Turbidity CLEAR Urine pH 6.5 Urine Specific [place] 1.006 Urine Protein NEG Urine Glucose (UA) NEG Urine Ketones NEG Urine Occult Blood NEG Urine Nitrite NEG Urine Bilirubin NEG Urine Urobilinogen LESS THAN 2.0 Urine Leukocyte Esterase NEG Urine RBC LESS THAN 1 Urine WBC LESS THAN 1 Microscopic Urinalysis Comment CULT NOT INDICATED Blood Urea Nitrogen 13 Creatinine 0.85 Random Glucose 88 Total Protein 7.5 Albumin 2.9 Calcium Level 9.4 Alkaline Phosphatase 856 Aspartate Amino Transf (AST/SGOT) 21 Alanine Aminotransferase (ALT/SGPT) 31 Total Bilirubin 0.5 Sodium Level 132 Potassium Level 3.9 Chloride Level 97 Carbon Dioxide Level 26.4 Anion Gap 9 Estimat Glomerular Filtration Rate 64 Lipase 95 Stool C. difficile Toxin (PCR) POSITIVE Stl C. difficile Toxin Epiderm 027 PRESUMPTIVE POSITIVE Result Diagram: 11/23/16165411/23/161654 Imaging Left-sided colitis also involving rectosigmoid colon. Minimal mural thickening in the cecal region. No abscess, obstruction, free fluid or free air. Findings similar to September 22. Septic Shock Reassessment Heart: Regular rate and rhythm Lungs: Clear Skin: Warm Capillary Refill: <2 seconds Caprini VTE Risk Assessment Caprini VTE Risk Assessment: Mod/High Risk (score >= 2) VTE Pharm Contraindication: Active bleeding Caprini Risk Assessment Model Point Value = 1 Point Value = 2 Point Value = 3 Point Value = 5 Age 41-60 Minor surgery BMI > 25 kg/m2 Swollen legs Varicose veins or History of unexplained or recurrent spontaneous Oral contraceptives or hormone replacement Sepsis (< 1 month) Serious lung disease, including pneumonia (< 1 month) Abnormal pulmonary function Acute myocardial infarction Congestive heart failure (< 1 month) History of inflammatory bowel disease Medical patient at bed rest Age 61-74 Arthroscopic surgery Major open surgery (> 45 min) Laparoscopic surgery (> 45 min) Malignancy Confined to bed (> 72 hours) Immobilizing plaster cast Central venous access Age >= 75 History of VTE Family history of VTE Factor V Leiden Prothrombin [id number] Lupus anticoagulant Anticardiolipin antibodies Elevated serum homocysteine Heparin-induced thrombocytopenia Other congenital or acquired thrombophilia Stroke (< 1 month) Elective arthroplasty Hip, pelvis, or leg fracture Acute spinal cord injury (< 1 month) Prophylaxis Regimen Total Risk Factor Score Risk Level Prophylaxis Regimen 0-1 Low Early ambulation 2 Moderate Order ONE of the following: *Sequential Compression Device (SCD) *Heparin 5000 units SQ BID 3-4 Higher Order ONE of the following medications: *Heparin 5000 units SQ TID *Enoxaparin/Lovenox 40 mg SQ daily (WT < 150 kg, CrCl > 30 mL/min) *Enoxaparin/Lovenox 30 mg SQ daily (WT < 150 kg, CrCl > 10-29 mL/min) *Enoxaparin/Lovenox 30 mg SQ BID (WT < 150 kg, CrCl > 30 mL/min) AND/OR *Sequential Compression Device (SCD) 5 or more Highest Order ONE of the following medications: *Heparin 5000 units SQ TID (Preferred with Epidurals) *Enoxaparin/Lovenox 40 mg SQ daily (WT < 150 kg, CrCl > 30 mL/min) *Enoxaparin/Lovenox 30 mg SQ daily (WT < 150 kg, CrCl > 10-29 mL/min) *Enoxaparin/Lovenox 30 mg SQ BID (WT < 150 kg, CrCl > 30 mL/min) AND *Sequential Compression Device (SCD) Assessment and Plan Assessment and Plan 80 year old female here with bright red blood in stool, history of c.diff infection in September. Code Status Do Not Resuscitate Discussed Condition With Seen and discussed with Dr. Andrea Problem List: (1) GI bleed ICD Codes: K92.2 - Gastrointestinal hemorrhage, unspecified Status: Acute Plan: Bright red blood in stool concerning for lower GI bleed. Rectal exam with no obvious external or internal hemorrhoids. History of colon resection in past per patient's report, but the details about this are fuzzy. She believes she had "precancer" that prompted the resection, and she never had a colostomy. Colonoscopy done in [place] she believes about a year ago. Has supratherapeutic INR on Coumadin for mechanical heart valve (6.6). Received Vitamin K once in ED. - Consult gastroenterology for possible colonoscopy/EGD - Serial H&H's, threshold to transfuse is higher due to cardiac history (past CABG, mechanical heart valve) - Transfusion as needed, type and screen done - NPO in case of GI procedure tomorrow, advance diet as tolerated - IV fluids at maintenance - Warfarin being held and 10 mg IV vitamin K given, INR was 6.6. Risks and benefits must be weighed on restarting Coumadin given her mechanical valve, versus risk of serious hemorrhage. Will check INR again in the morning. (2) History of Clostridium difficile colitis ICD Codes: Z86.19 - History of Clostridium difficile colitis Status: Chronic Plan: History of c.diff colitis, believes she has had c.diff colitis 2 or 3 times in the past. Hospital admission in September for c.diff colitis and was sent home on a vancomycin taper. Since that time stool has become well formed. C.diff toxin positive now, but without any diarrhea, suggesting possibly that this is not a current c.diff infection. CT scan showing non-specific colitis, but it is the same as in [place]. Possibly the bleeding is not related to c.diff. White count slightly elevated with neutrophilia, lactic acid normal, no fevers documented. - Received oral vancomycin in the ED, but will withhold oral antibiotics for now. - Contact precautions in case this is active c.diff infection. - Consult gastroenterology primarily for GI bleed and possible new colitis. - Watch for development of diarrhea, ileus, toxic megacolon, consider re- scanning if colitis-like symptoms worsen. (3) Warfarin-induced coagulopathy ICD Codes: D68.9 - Coagulation defect, unspecified; T45.515A - Adverse effect of anticoagulants, initial encounter Status: Acute Plan: INR 6.6 with active GI bleeding, received 10 mg IV infusion of vitamin K in ED. No PCC given. Receives Coumadin for mechanical heart valve. - Repeat INR tomorrow - Hold Coumadin due to active GI bleed (4) Mechanical heart valve present ICD Codes: Z95.2 - Presence of prosthetic heart valve Status: Chronic Plan: Holding Coumadin currently for active GI bleed. Has supratherapeutic INR at 6.6. Received vitamin K in ED. Dr. Gaviria is her fire control officer. - Monitor INR, repeat in the morning - Risks and benefits need to be considered before restarting Coumadin. (5) Nutrition, metabolism, and development symptoms ICD Codes: R63.8 - Other symptoms and signs concerning food and fluid intake Status: Acute Plan: Hyponatremic/hypochloremic - NS at 100 mls/hr - NPO in case of GI procedures - Monitor electrolytes (6) Pharmacologic contraindication to deep vein thrombosis (DVT) prophylaxis ICD Codes: Z53.09 - Procedure and treatment not carried out because of other contraindication Status: Acute Plan: Supratherapeutic INR with active GI bleeding - Bilateral SCD's only Physician Certification 2 Midnight Certification Type: Admission for Inpatient Services Order for Inpatient Services The services are ordered in accordance with Medicare regulations or non- Medicare payer requirements, as applicable. In the case of services not specified as inpatient-only, they are appropriately provided as inpatient services in accordance with the 2-midnight benchmark. Estimated LOS (days): 3 days is the estimated time the patient will need to remain in the hospital, assuming treatment plan goals are met and no additional complications. Post-Hospital Plan: SNF Problem Qualifiers (1) GI bleed: Qualified Codes: K92.2 - Gastrointestinal hemorrhage, unspecified Rodriguez Hardy MD R3 Nov 23, 2016 20:19
[2016-11-23] MEDS ORDERED: ALBUTEROL SULFATE 90 MCG/ACT HFA 8 GM INHALER INH PRN (21:00)
[2016-11-23] MEDS ORDERED: NON-FORMULARY DRUG (Saccharomyces Boulardii (Probiotic) 250 MG) PO SCH (21:00)
[2016-11-23] MEDS ORDERED: SIMETHICONE 180 MG PO PRN (21:00)
[2016-11-23] MEDS ORDERED: BISACODYL 10 MG SUPP RECTAL PRN (21:15)
[2016-11-23] MEDS ORDERED: NALOXONE HCL 0.4 MG/ML AMP IV PRN (21:15)
[2016-11-23] MEDS ORDERED: ONDANSETRON HCL 4 MG/2 ML VIAL IVP PRN (21:15)
[2016-11-23] MEDS ORDERED: LACTULOSE SYRUP 20 GM/30 ML CUP PO PRN (21:15)
[2016-11-23] MEDS ORDERED: SENNOSIDES 8.6 MG TAB PO PRN (21:15)
[2016-11-23] MEDS ORDERED: MAGNESIUM HYDROXIDE SUSP 30 ML CUP PO PRN (21:15)
[2016-11-23] MEDS ORDERED: SODIUM CHLORIDE 0.9% FLUSH 10 ML FLUSH IV FLUSH PRN (21:15)
[2016-11-23] MEDS ORDERED: PILL SPLITTER OTHER PRN (21:30)
[2016-11-23] MEDS ORDERED: SIMETHICONE 80 MG CHEWABLE TAB PO PRN (21:30)
[2016-11-23 22:46] LABS: HEMATOCRIT 32.6 % (35.0-46.0); REVIEW FLAG FINAL
[2016-11-24] VITALS (7 sets, daily range): BP systolic 122–160; BP diastolic 57–69; PULSE 61–73; RESP 16–18; TEMP 98.1–98.7; O2SAT 97–100
[2016-11-24] MEDS: GABAPENTIN 100 MG CAP PO SCH ×2 (00:41→21:49)
[2016-11-24] MEDS: SODIUM CHLOR 0.9% 1000 ML INJ 1,000 ML IV SCH ×3 (00:42→17:04)
[2016-11-24 01:02] LABS: HEMATOCRIT 32.3 % (35.0-46.0); REVIEW FLAG FINAL
[2016-11-24] MEDS: LEVOTHYROXINE SODIUM 25 MCG TAB PO SCH (05:47)
[2016-11-24 06:28] LABS: AUTOMATED NEUTROPHIL # 7.4 TH/MM3 (1.8-7.7); BASOPHIL # 0.1 TH/MM3 (0-0.2); BASOPHIL % 0.6 % (0.0-2.0); EOSINOPHIL # 0.1 TH/MM3 (0-0.4); EOSINOPHIL % 1.2 % (0.0-4.0); HEMO FLAGS DIFF FINAL; LYMPH % 12.6 % (9.0-44.0); LYMPHOCYTE # 1.2 TH/MM3 (1.0-4.8); MEAN CELL VOLUME 88.6 FL (80.0-100.0); MEAN CORPUSCULAR HEMOGLOBIN 29.3 PG (27.0-34.0); MEAN CORPUSCULAR HGB CONC 33.1 % (32.0-36.0); MONO % 8.7 % (0.0-8.0); NEUT % 76.9 % (16.0-70.0); PLATELET COUNT 283 TH/MM3 (150-450); RED BLOOD COUNT 3.73 MIL/MM3 (4.00-5.30); RED CELL DISTRIBUTION WIDTH 15.5 % (11.6-17.2); WHITE BLOOD COUNT 9.6 TH/MM3 (4.0-11.0)
[2016-11-24 06:36] LABS: INTERNATIONAL NORMALIZED RATIO 1.2 RATIO; PROTHROMBIN TIME - PATIENT 13.7 SEC (9.8-11.6)
[2016-11-24 07:16] LABS: ALKALINE PHOSPHATASE 625 U/L (45-117); ALT (GPT) 20 U/L (10-53); ANION GAP 6 MEQ/L (5-15); AST (GOT) 14 U/L (15-37); BICARBONATE 26.3 MEQ/L (21.0-32.0); BLOOD UREA NITROGEN 11 MG/DL (7-18); CHLORIDE 103 MEQ/L (98-107); GLOMERULAR FILTRATION RATE 76 ML/MIN (>89); POTASSIUM 3.5 MEQ/L (3.5-5.1); SODIUM (NA) 135 MEQ/L (136-145); TOTAL BILIRUBIN ADULT 0.4 MG/DL (0.2-1.0)
[2016-11-24] MEDS: DOCUSATE SODIUM 50 MG/SENNA 8.6 MG TAB PO SCH ×2 (08:33→21:50)
[2016-11-24] MEDS: SODIUM CHLORIDE 0.9% FLUSH 10 ML FLUSH IV FLUSH SCH ×2 (08:33→21:51)
[2016-11-24] MEDS: DILTIAZEM-CD 180 MG CAP ER PO SCH (08:34)
[2016-11-24] MEDS: LOSARTAN 25 MG TAB PO SCH (08:34)
[2016-11-24] MEDS: HYDROCHLOROTHIAZIDE 12.5 MG CAP PO SCH (08:34)
[2016-11-24] MEDS: VANCOMYCIN 500 MG VIAL (FOR ORAL USE ONLY) PO SCH ×4 (08:38→21:50)
[2016-11-24] MEDS ORDERED: PT:PROBIOTIC 250 MG PO SCH (09:00)
--- NOTE | 2016-11-24 09:58 | PD.CONS ---
HPI History of Present Illness This is a 80 year old female with c diff, hx mechanical valve 12y ago on coumadin who presented from [facility] with BRBPR. ONset 1 1/2 days ago. Blood intermingled in stool and also passed a few clots as well. No bleeding independently of stool. Her INR was found to be supratherapeutic at 6.6 today. Has decreased today, per RN she had formed stool with scant blood. She has also been experiencing some abdominal pressure, mid abdomen region, relieved by BM. She has had nearly 40 lbs weight loss in the last 5 months. No n/v, constipation. She had colonoscopy a year ago in [facility], normal per pt. Had EGD 1 year and half ago, gastritis found. She was seen here in September and found to have c diff, diarrhea has resolved. Distant hx of partial colectomy for "something precancerous" that was bleeding, about 20 years ago. (Shawnee Quigley) PFSH Past Medical History mechanical valve c diff Past Surgical History cervical fusion partial colectomy endarterectomy (Shawnee Quigley) Coded Allergies: bee venom protein (honey bee) (Unverified Allergy, Severe, shock, 11/02/16) hydromorphone (Unverified Allergy, Severe, coded, 11/02/16) Sulfa (Sulfonamide Antibiotics) (Unverified Allergy, Intermediate, pass out, hives, 11/02/16) metronidazole (Unverified Allergy, Intermediate, seizures, 11/02/16) codeine (Unverified Allergy, Mild, pass out, 11/02/16) meperidine (Unverified Allergy, Mild, pass out, 11/02/16) morphine (Unverified Allergy, Mild, pass out, 11/02/16) penicillin G (Unverified Allergy, Mild, rash, 11/02/16) Influenza Virus Vaccines (Unverified Allergy, Unknown, allergic to eggs, ) vancomycin (Unverified Allergy, Unknown, hives, 11/02/16) PT CAN RECEIVE ORAL, BUT NOT IV Family History aneurysm - mother Social History no ETOH no tobacco no illicit drug use (Shawnee Quigley) Review of Systems Constitutional: COMPLAINS OF: Weight loss, DENIES: Fever, Night Sweats Eyes: DENIES: Blurred vision Ears, nose, mouth, throat: DENIES: Hearing loss Respiratory: DENIES: Cough Cardiovascular: DENIES: Chest pain Gastrointestinal: COMPLAINS OF: Abdominal pain, Bloody stools, DENIES: Black stools, Constipation, Diarrhea, Nausea, Vomiting, Hematemesis Genitourinary: DENIES: Hematuria Musculoskeletal: DENIES: Muscle aches Integumentary: DENIES: Pruritus Neurologic: DENIES: Abnormal gait Psychiatric: DENIES: Confusion (Shawnee Quigley) GI Exam Vitals I&O Vital Signs Date Time Temp Pulse Resp B/P (MAP) Pulse Ox O2 Delivery O2 Flow Rate FiO2 11/24/16 08:09 98.7 67 18 122/57 (78) 97 11/24/16 06:52 63 11/24/16 05:14 98.6 66 18 160/69 (99) 97 11/24/16 01:40 98.2 72 17 143/65 (91) 97 11/23/16 22:35 11/23/16 17:00 80 20 169/74 (105) 100 Room Air 11/23/16 16:07 98.4 82 24 204/88 (126) 99 Room Air Laboratory Test 11/23/16 16:50 11/23/16 16:55 11/23/16 17:15 11/23/16 20:10 Lactic Acid Level 1.2 mmol/L White Blood Count 11.2 TH/MM3 Red Blood Count 4.21 MIL/MM3 Hemoglobin 12.0 GM/DL 10.6 GM/DL Hematocrit 37.0 % 32.6 % Mean Corpuscular Volume 87.8 FL Mean Corpuscular Hemoglobin 28.6 PG Mean Corpuscular Hemoglobin Concent 32.6 % Red Cell Distribution Width 16.3 % Platelet Count 350 TH/MM3 Mean Platelet Volume 8.7 FL Neutrophils (%) (Auto) 78.2 % Lymphocytes (%) (Auto) 12.4 % Monocytes (%) (Auto) 7.6 % Eosinophils (%) (Auto) 0.7 % Basophils (%) (Auto) 1.1 % Neutrophils # (Auto) 8.7 TH/MM3 Lymphocytes # (Auto) 1.4 TH/MM3 Monocytes # (Auto) 0.8 TH/MM3 Eosinophils # (Auto) 0.1 TH/MM3 Basophils # (Auto) 0.1 TH/MM3 CBC Comment DIFF FINAL Differential Comment Prothrombin Time 78.6 SEC Prothromb Time International Ratio 6.6 RATIO Activated Partial Thromboplast Time 83.6 SEC Urine Color YELLOW Urine Turbidity CLEAR Urine pH 6.5 Urine Specific [place] 1.006 Urine Protein NEG mg/dL Urine Glucose (UA) NEG mg/dL Urine Ketones NEG mg/dL Urine Occult Blood NEG Urine Nitrite NEG Urine Bilirubin NEG Urine Urobilinogen LESS THAN 2.0 MG/DL Urine Leukocyte Esterase NEG Urine RBC LESS THAN 1 /hpf Urine WBC LESS THAN 1 /hpf Microscopic Urinalysis Comment CULT NOT INDICATED Blood Urea Nitrogen 13 MG/DL Creatinine 0.85 MG/DL Random Glucose 88 MG/DL Total Protein 7.5 GM/DL Albumin 2.9 GM/DL Calcium Level 9.4 MG/DL Alkaline Phosphatase 856 U/L Aspartate Amino Transf (AST/SGOT) 21 U/L Alanine Aminotransferase (ALT/SGPT) 31 U/L Total Bilirubin 0.5 MG/DL Sodium Level 132 MEQ/L Potassium Level 3.9 MEQ/L Chloride Level 97 MEQ/L Carbon Dioxide Level 26.4 MEQ/L Anion Gap 9 MEQ/L Estimat Glomerular Filtration Rate 64 ML/MIN Lipase 95 U/L Stool C. difficile Toxin (PCR) POSITIVE Stl C. difficile Toxin Epiderm 027 PRESUMPTIVE POSITIVE Test 11/24/16 00:40 11/24/16 06:06 Hemoglobin 10.6 GM/DL 10.9 GM/DL Hematocrit 32.3 % 33.0 % White Blood Count 9.6 TH/MM3 Red Blood Count 3.73 MIL/MM3 Mean Corpuscular Volume 88.6 FL Mean Corpuscular Hemoglobin 29.3 PG Mean Corpuscular Hemoglobin Concent 33.1 % Red Cell Distribution Width 15.5 % Platelet Count 283 TH/MM3 Mean Platelet Volume 8.2 FL Neutrophils (%) (Auto) 76.9 % Lymphocytes (%) (Auto) 12.6 % Monocytes (%) (Auto) 8.7 % Eosinophils (%) (Auto) 1.2 % Basophils (%) (Auto) 0.6 % Neutrophils # (Auto) 7.4 TH/MM3 Lymphocytes # (Auto) 1.2 TH/MM3 Monocytes # (Auto) 0.8 TH/MM3 Eosinophils # (Auto) 0.1 TH/MM3 Basophils # (Auto) 0.1 TH/MM3 CBC Comment DIFF FINAL Differential Comment Prothrombin Time 13.7 SEC Prothromb Time International Ratio 1.2 RATIO Blood Urea Nitrogen 11 MG/DL Creatinine 0.74 MG/DL Random Glucose 79 MG/DL Total Protein 5.9 GM/DL Albumin 2.2 GM/DL Calcium Level 8.5 MG/DL Alkaline Phosphatase 625 U/L Aspartate Amino Transf (AST/SGOT) 14 U/L Alanine Aminotransferase (ALT/SGPT) 20 U/L Total Bilirubin 0.4 MG/DL Sodium Level 135 MEQ/L Potassium Level 3.5 MEQ/L Chloride Level 103 MEQ/L Carbon Dioxide Level 26.3 MEQ/L Anion Gap 6 MEQ/L Estimat Glomerular Filtration Rate 76 ML/MIN Thyroid Stimulating Hormone 3rd Gen 2.410 uIU/ML Physical Examination HEENT: PERRL; normocephalic; atraumatic; no jaundice. CHEST: CTA CARDIAC: RRR + click ABDOMEN: Soft, nondistended, nontender; no hepatosplenomegaly; bowel sounds are present in all four quadrants. EXTREMITIES: No clubbing, cyanosis, or edema. SKIN: Normal; no rash; no jaundice. TMH TEACHER: No focal deficits; alert and oriented times three. (Shawnee Quigley) Assessment and Plan Plan ASSESSMENT - anemia - 12.0 on admission and did drop to 10.9 - BRBPR, abd pressure - onset 1.5 days ago, bright red blood intermingled in stool and some clots, has improved today. no pain today. CT shows left sided colitis, rectosigmoid as well, similar to CT from 09/22 - weight loss - nearly 40 lbs in last 3 months. - c diff - has hx recent c diff infection, was on vanc, diarrhea since resolved but still pos for c diff this admission PLAN - colonoscopy tomorrow - obtain consent - clears today - NPO after midnight - [employer] - monitor HH - further recs to follow based on results above This pt seen by myself and Dr Rodrigues and this note is written on his behalf (Shawnee Quigley) Plan Patient was seen and examined, agree with the above noted, questionable C. difficile colitis causing the finding on the CT scan. We will plan on doing colonoscopy tomorrow to rule out other etiology causing the colitis ([place],AmShawnee Morales Nov 24, 2016 09:58 Hadley Rodrigues MD Nov 24, 2016 21:57
--- NOTE | 2016-11-24 10:49 | HHI.FPPN ---
Subjective Remarks No acute issues overnight. Vitals are stable, patient remains afebrile. She is having some abdominal cramping but states that it is better today than yesterday. Her last bowel movement was 1-2 days ago and somewhat formed. She continues to pass small amounts of bright red blood per rectum. She denies any chest pain, shortness of breath, fever, chills, nausea or vomiting. She has an appetite. She is able to ambulate with her walker. (Ingris Membreno MD, R3) Objective Vitals Vital Signs Date Time Temp Pulse Resp B/P (MAP) Pulse Ox O2 Delivery O2 Flow Rate FiO2 11/24/16 08:09 98.7 67 18 122/57 (78) 97 11/24/16 06:52 63 11/24/16 05:14 98.6 66 18 160/69 (99) 97 11/24/16 01:40 98.2 72 17 143/65 (91) 97 11/23/16 22:35 11/23/16 17:00 80 20 169/74 (105) 100 Room Air 11/23/16 16:07 98.4 82 24 204/88 (126) 99 Room Air (Ingris Membreno MD, R3) Result Diagram: 11/24/16 0606 11/24/16 0606 Imaging Last Impressions Abdomen/Pelvis CT 11/23/16 1632 Signed Impressions: Service Date/Time: Wednesday, November 23, 2016 19:23 - CONCLUSION: 1. Left-sided colitis also involving rectosigmoid. Minimal mural thickening in the cecal region. No abscess, obstruction, free fluid or free air. Findings are similar to September 22. Khadar Watson MD Objective Remarks GENERAL: Well-nourished, well-developed female laying comfortably in bed. SKIN: Warm and dry. HEAD: Atraumatic. Normocephalic. EYES: Pupils equal and round. No scleral icterus. No injection or drainage. ENT: No nasal bleeding or discharge. Mucous membranes pink and moist. NECK: Trachea midline. No JVD. CARDIOVASCULAR: Regular rate and rhythm. No murmur. RESPIRATORY: No accessory muscle use. Clear to auscultation. Breath sounds equal bilaterally. GASTROINTESTINAL: Abdomen soft, minimally tender throughout abdomen, nondistended. Hepatic and splenic margins not palpable. MUSCULOSKELETAL: Extremities without clubbing, cyanosis, or edema. No obvious deformities. NEUROLOGICAL: Awake and alert. No obvious cranial nerve deficits. Motor grossly within normal limits. Normal speech. PSYCHIATRIC: Appropriate mood and affect; insight and judgment normal. (Ingris Membreno MD, R3) A/P Assessment and Plan 80 year old female with a PMH significant for C. difficile colitis since May who presented with bright red blood in stool and was admitted for further evaluation of colitis and GI bleed. Discharge Planning Unclear timetable, pending resolution of GI bleed. (Ingris Membreno MD, R3) Attending Attestation Patient seen and examined. Case reviewed and discussed with the resident team. Agree with plan of care as discussed with me and documented in the resident note. I am familiar with her from prior admission in September when she was treated for C diff. She has done well overall until this incident. Today I saw her in the H pod. We discussed that she was scheduled for colonoscopy tomorrow. She can resume her coumadin after her colonoscopy depending on the results. will hold anticoagulants until that time. After taking Vitamin K her INR will not bump for days anyway. (Denise Ugalde MD) Problem List: (1) GI bleed ICD Codes: K92.2 - Gastrointestinal hemorrhage, unspecified Status: Acute Plan: Bright red blood in stool concerning for lower GI bleed. No obvious external or internal hemorrhoids on exam. History of colon resection in past. Last colonoscopy about one year ago. Supratherapeutic INR on admission, now s/p Vitamin K. Plan: - Consult GI for possible colonoscopy/EGD - Serial H&H's, threshold to transfuse is higher due to cardiac history (past CABG, mechanical heart valve) - clear liquid diet, NPO after midnight in anticipation of colonoscopy tomorrow - Maintenance IV fluids with NS @ 100ml/hr - Warfarin being held, INR now 1.2 after Vitamin K. 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 Admitted here in September for c.diff colitis and sent home on oral vancomycin taper. Now having formed stools. C.diff toxin remains positive. 11/[address] shows left-sided colitis involving rectosigmoid. Minimal mural thickening in the cecal region. Findings similar to Brittani. Plan: - Continue vancomycin 125mg PO QID - Contact precautions - Consult Infectious Disease (3) Warfarin-induced coagulopathy ICD Codes: D68.9 - Coagulation defect, unspecified; T45.515A - Adverse effect of anticoagulants, initial encounter Status: Resolved Plan: INR 6.6 with active GI bleeding on admission s/p vitamin K 10 mg IV, INR now subtherapeutic at 1.2 On Coumadin for mechanical heart valve. 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 Dr. Gaviria is her ext js developer. - Monitor INR - Risks and benefits need to be considered before restarting Coumadin. (5) Nutrition, metabolism, and development symptoms ICD Codes: R63.8 - Other symptoms and signs concerning food and fluid intake Status: Acute Plan: Fluids: NS @ 100ml/hr Electrolytes: wnl, continue to monitor and replete as needed Nutrition: clear liquid, NPO after midnight (6) Pharmacologic contraindication to deep vein thrombosis (DVT) prophylaxis ICD Codes: Z53.09 - Procedure and treatment not carried out because of other contraindication Status: Acute Plan: Hold chemical anticoagulation for active GI bleed - Bilateral SCD's only dw Dr. Ugalde (Ingris Membreno MD, R3) Problem Qualifiers (1) GI bleed: Qualified Codes: K92.2 - Gastrointestinal hemorrhage, unspecified Ingris Membreno MD, R3 Nov 24, 2016 10:49 Denise Ugalde MD Nov 24, 2016 14:11
[2016-11-24 12:04] LABS: HEMATOCRIT 34.8 % (35.0-46.0)
[2016-11-24 12:05] LABS: REVIEW FLAG FINAL
[2016-11-24 15:22] LABS: HEMATOCRIT 31.6 % (35.0-46.0); REVIEW FLAG FINAL
[2016-11-24] MEDS ORDERED: MAGNESIUM CITRATE SOLN 300 ML BTL PO ONE (21:45)
[2016-11-24] MEDS: ACETAMINOPHEN 325 MG TAB PO PRN (21:50)
[2016-11-24] MEDS ORDERED: CHLORHEXIDINE GLUCONATE 2 % 1 PACK (2 CLOTHS) TOPICAL PRN (22:00)
[2016-11-24] MEDS ORDERED: LACTATED RINGER'S 1000 ML IV PRN (22:00)
[2016-11-24] MEDS ORDERED: DO NOT ADM ANY ANTICOAGULANT DRUGS PRN (22:00)
[2016-11-24] MEDS ORDERED: INSULIN HUMAN REGULAR 1,000 UNITS/10 ML VIAL SQ PRN (22:00)
[2016-11-24] MEDS ORDERED: POVIDONE IODINE 5% (ANTISEPSIS KIT) 4 APPLICATIONS EACH NARE PRN (22:00)
[2016-11-24] MEDS ORDERED: SODIUM CHLORID 0.9% 500 ML IV PRN (22:00)
[2016-11-24] MEDS ORDERED: METOPROLOL TARTRATE 25 MG TAB PO PRN (22:00)
[2016-11-25] VITALS (8 sets, daily range): BP systolic 113–176; BP diastolic 59–104; PULSE 59–73; RESP 16–20; TEMP 97.5–98; O2SAT 95–99
[2016-11-25] MEDS: SODIUM CHLOR 0.9% 1000 ML INJ 1,000 ML IV SCH ×3 (03:14→21:23)
[2016-11-25] MEDS ORDERED: MAGNESIUM CITRATE SOLN 300 ML BTL PO ONE (05:00)
[2016-11-25] MEDS: LEVOTHYROXINE SODIUM 25 MCG TAB PO SCH (05:21)
[2016-11-25] MEDS: DOCUSATE SODIUM 50 MG/SENNA 8.6 MG TAB PO SCH ×2 (08:45→21:00)
[2016-11-25] MEDS: LOSARTAN 25 MG TAB PO SCH (08:45)
[2016-11-25] MEDS: DILTIAZEM-CD 180 MG CAP ER PO SCH (08:45)
[2016-11-25] MEDS: VANCOMYCIN 500 MG VIAL (FOR ORAL USE ONLY) PO SCH ×4 (08:47→21:23)
[2016-11-25] MEDS: HYDROCHLOROTHIAZIDE 12.5 MG CAP PO SCH (08:47)
[2016-11-25] MEDS: SODIUM CHLORIDE 0.9% FLUSH 10 ML FLUSH IV FLUSH SCH ×2 (08:48→21:23)
--- NOTE | 2016-11-25 09:17 | HHI.FPPN ---
Subjective Remarks Patient has been having bowel movements throughout the night after drinking GoLYTELY in preparation for her colonoscopy today. She denies any new symptoms of chest pain, shortness of breath, fever, chills, nausea, vomiting, abdominal pain or any additional GI bleeding. (Ingris Membreno MD, R3) Objective Vitals Vital Signs Date Time Temp Pulse Resp B/P (MAP) Pulse Ox O2 Delivery O2 Flow Rate FiO2 11/25/16 08:00 97.5 73 20 164/104 (124) 95 11/25/16 05:35 64 11/25/16 04:00 97.9 64 16 133/62 (85) 96 11/25/16 00:00 97.7 59 18 113/59 (77) 97 11/24/16 23:23 18 11/24/16 20:00 98.5 73 18 133/59 (83) 100 11/24/16 16:30 98.1 61 16 151/67 (95) 97 11/24/16 11:18 98.6 66 16 123/58 (79) 98 I/O 11/24/16 11/24/16 11/24/16 11/25/16 11/25/16 11/25/16 07:00 15:00 23:00 07:00 15:00 23:00 Intake Total 1000 ml Balance 1000 ml Intake IV Total 1000 ml # Voids 12 # Bowel Movements 8 (Ingris Membreno MD, R3) Result Diagram: 11/24/16 1425 11/24/16 0606 Imaging Last Impressions Abdomen/Pelvis CT 11/23/16 1632 Signed Impressions: Service Date/Time: Wednesday, November 23, 2016 19:23 - CONCLUSION: 1. Left-sided colitis also involving rectosigmoid. Minimal mural thickening in the cecal region. No abscess, obstruction, free fluid or free air. Findings are similar to September 22. Khadar Watson MD Objective Remarks GENERAL: Well-nourished, well-developed female sitting on edge of bed next to bedside commode. SKIN: Warm and dry. HEAD: Atraumatic. Normocephalic. EYES: Pupils equal and round. No scleral icterus. No injection or drainage. ENT: No nasal bleeding or discharge. Mucous membranes pink and moist. NECK: Trachea midline. No JVD. CARDIOVASCULAR: Regular rate and rhythm. No murmur. RESPIRATORY: No accessory muscle use. Clear to auscultation. Breath sounds equal bilaterally. GASTROINTESTINAL: Abdomen soft, minimally tender throughout abdomen, nondistended. Hepatic and splenic margins not palpable. MUSCULOSKELETAL: Extremities without clubbing, cyanosis, or edema. No obvious deformities. NEUROLOGICAL: Awake and alert. No obvious cranial nerve deficits. Motor grossly within normal limits. Normal speech. PSYCHIATRIC: Appropriate mood and affect; insight and judgment normal. (Ingris Membreno MD, R3) A/P Assessment and Plan 80 year old female with a PMH significant for C. difficile colitis since May who presented with bright red blood in stool and was admitted for further evaluation of colitis and GI bleed. Discharge Planning Unclear timetable, pending resolution of GI bleed. (Ingris Membreno MD, R3) Attending Attestation Case reviewed and discussed with the resident team. Agree with plan of care as discussed with me and documented in the resident note. she was down in colonoscopy when I tried to see her. if her colonoscopy is fine and there is no site of bleeding, she should be able to go back on her coumadin. she could have at least DVT prophylaxis if she has a good scope and can be started back on coumadin today. she stated that 3 mg was too high of a dose for her and she normally took 1 mg daily or at most 2 mg daily. with an artificial heart valve, she must have coumadin (Denise Ugalde MD) Problem List: (1) GI bleed ICD Codes: K92.2 - Gastrointestinal hemorrhage, unspecified Status: Acute Plan: Bright red blood in stool concerning for lower GI bleed. No obvious external or internal hemorrhoids on exam. History of colon resection in past. Last colonoscopy about one year ago. Supratherapeutic INR on admission, now s/p Vitamin K. H/H stable Plan: - Consult GI- appreciate recommendations. Plan for Colonoscopy today. - DC Protonix drip started in ED, transition to Protonix 40mg PO BID - Threshold to transfuse is higher due to cardiac history (past CABG, mechanical heart valve) - NPO for colonoscopy - Maintenance IV fluids with NS @ 100ml/hr - Warfarin being held, INR now 1.2 after Vitamin K. 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 Admitted here in September for c.diff colitis and sent home on oral vancomycin taper. Now having formed stools. C.diff toxin remains positive. 11/[address] shows left-sided colitis involving rectosigmoid. Minimal mural thickening in the cecal region. Findings similar to September. Plan: - Continue vancomycin 125mg PO QID - Contact precautions - Consult Infectious Disease (3) Warfarin-induced coagulopathy ICD Codes: D68.9 - Coagulation defect, unspecified; T45.515A - Adverse effect of anticoagulants, initial encounter Status: Resolved Plan: INR 6.6 with active GI bleeding on admission s/p vitamin K 10 mg IV, INR now subtherapeutic at 1.2 On Coumadin for mechanical heart valve. 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 Dr. Gaviria is her household appliances service technician. - Monitor INR - Risks and benefits need to be considered before restarting Coumadin. (5) Nutrition, metabolism, and development symptoms ICD Codes: R63.8 - Other symptoms and signs concerning food and fluid intake Status: Acute Plan: Fluids: NS @ 100ml/hr Electrolytes: wnl, continue to monitor and replete as needed Nutrition: NPO for colonoscopy (6) Pharmacologic contraindication to deep vein thrombosis (DVT) prophylaxis ICD Codes: Z53.09 - Procedure and treatment not carried out because of other contraindication Status: Acute Plan: Hold chemical anticoagulation for active GI bleed - Bilateral SCD's only dw Dr. Ugalde (Ingris Membreno MD, R3) Problem Qualifiers (1) GI bleed: Qualified Codes: K92.2 - Gastrointestinal hemorrhage, unspecified Ingris Membreno MD, R3 Nov 25, 2016 09:17 Denise Ugalde MD Nov 25, 2016 14:12
[2016-11-25 11:15] LABS: AUTOMATED NEUTROPHIL # 5.5 TH/MM3 (1.8-7.7); BASOPHIL # 0.1 TH/MM3 (0-0.2); BASOPHIL % 0.7 % (0.0-2.0); EOSINOPHIL # 0.1 TH/MM3 (0-0.4); HEMATOCRIT 34.8 % (35.0-46.0); HEMO FLAGS DIFF FINAL; LYMPH % 14.2 % (9.0-44.0); MEAN CELL VOLUME 90.2 FL (80.0-100.0); MEAN CORPUSCULAR HEMOGLOBIN 28.4 PG (27.0-34.0); MEAN CORPUSCULAR HGB CONC 31.5 % (32.0-36.0); MONO % 6.9 % (0.0-8.0); NEUT % 77.2 % (16.0-70.0); PLATELET COUNT 275 TH/MM3 (150-450); RED BLOOD COUNT 3.85 MIL/MM3 (4.00-5.30); RED CELL DISTRIBUTION WIDTH 15.5 % (11.6-17.2); WHITE BLOOD COUNT 7.1 TH/MM3 (4.0-11.0)
[2016-11-25] MEDS ORDERED: PROPOFOL 200 MG/20 ML AMP IV ONE (11:20)
[2016-11-25 11:33] LABS: ALT (GPT) 21 U/L (10-53)
[2016-11-25 11:36] LABS: ALKALINE PHOSPHATASE 667 U/L (45-117); TOTAL BILIRUBIN ADULT 0.4 MG/DL (0.2-1.0)
[2016-11-25 11:37] LABS: ANION GAP 10 MEQ/L (5-15); AST (GOT) 18 U/L (15-37); BICARBONATE 21.4 MEQ/L (21.0-32.0); BLOOD UREA NITROGEN 9 MG/DL (7-18); CHLORIDE 103 MEQ/L (98-107); GLOMERULAR FILTRATION RATE 79 ML/MIN (>89); POTASSIUM 3.6 MEQ/L (3.5-5.1); SODIUM (NA) 134 MEQ/L (136-145)
--- NOTE | 2016-11-25 11:38 | GIPROC ---
[facility] [address] [facility] [id number] COLONOSCOPY PROCEDURE REPORT EXAM DATE: 11/25/2016 PATIENT NAME: Inez Mack MR #: [id number] BIRTHDATE: 1935 ENDOSCOPIST: Hadley Rodrigues MD ORDER #: [id number] WATERMASTER: José Luis Adams STATUS: inpatient INDICATIONS: The patient is a 80 yr old female here for a colonoscopy due to anemia, non-specific, chronic diarrhea, and anal bleeding PROCEDURE PERFORMED: Colonoscopy with biopsy MEDICATIONS: None and Per Anesthesia. PREP QUALITY: fair ESTIMATED BLOOD LOSS: None CONSENT: The patient understands the risks and benefits of the procedure and understands that these risks include, but are not limited to: sedation, allergic reaction, infection, perforation and/or bleeding. Alternative means of evaluation and treatment include, among others: physical exam, x-rays, and/or surgical intervention. The patient elects to proceed with this endoscopic procedure. medical equipment was checked for proper function. Hand hygiene and appropriate measures for infection prevention was taken. After the risks, benefits and alternatives of the procedure were thoroughly explained, Informed consent was verified, confirmed and timeout was successfully executed by the treatment team. A digital exam revealed no abnormalities of the rectum The [id number] endoscope was introduced through the anus and advanced to the cecum, which was identified by both the appendix and ileocecal valve. The instrument was then slowly withdrawn as the colon was fully examined. COLON FINDINGS: Significant colitis possible C. difficile related in the sigmoid area, there is an area in the rectum that could be ischemia biopsy was done from the sigmoid and rectum. Some stool prevent the vision of small lesion. The colon mucosa was otherwise normal. Retroflexed views revealed small internal hemorrhoids The scope was then completely withdrawn from the patient and the procedure terminated. ADVERSE EVENTS: There were no complications. IMPRESSIONS: 1. Significant colitis possible C. difficile related in the sigmoid area, there is an area in the rectum that could be ischemia biopsy was done from the sigmoid and rectum 2. Some stool prevent the vision of small lesion 3. The colon mucosa was otherwise normal 4. Retroflexed views revealed small internal hemorrhoids 5. Revealed no abnormalities of the rectum RECOMMENDATIONS: 1. Await biopsy results. Biopsy results will not be ready for 7-10 days. If you don't hear from us in two weeks, call our office for results. 2. Continue antibiotic May start feeding Await biopsy results RECALL: Return 2 months Colonoscopy Hadley Rodrigues MD eSigned: Hadley Rodrigues MD 11/25/2016 11:38 AM cc: PATIENT NAME: Inez Mack MR#: [id number]
--- NOTE | 2016-11-25 11:42 | HHI.GIFU ---
Subjective Remarks Patient laying in bed comfortably, tolerated prep, no active bleeding, no abdominal pain Objective Vitals I&O Vital Signs Date Time Temp Pulse Resp B/P (MAP) Pulse Ox O2 Delivery O2 Flow Rate FiO2 11/25/16 08:00 97.5 73 20 164/104 (124) 95 11/25/16 05:35 64 11/25/16 04:00 97.9 64 16 133/62 (85) 96 11/25/16 00:00 97.7 59 18 113/59 (77) 97 11/24/16 23:23 18 11/24/16 20:00 98.5 73 18 133/59 (83) 100 11/24/16 16:30 98.1 61 16 151/67 (95) 97 I/O 11/24/16 11/24/16 11/24/16 11/25/16 11/25/16 11/25/16 07:00 15:00 23:00 07:00 15:00 23:00 Intake Total 1000 ml 150 ml Balance 1000 ml 150 ml Intake IV Total 1000 ml Other 150 ml # Voids 12 # Bowel Movements 8 Laboratory Laboratory Tests Test 11/24/16 11:45 11/24/16 14:25 11/25/16 10:47 Hemoglobin 11.3 10.4 10.9 Hematocrit 34.8 31.6 34.8 White Blood Count 7.1 Red Blood Count 3.85 Mean Corpuscular Volume 90.2 Mean Corpuscular Hemoglobin 28.4 Mean Corpuscular Hemoglobin Concent 31.5 Red Cell Distribution Width 15.5 Platelet Count 275 Mean Platelet Volume 7.6 Neutrophils (%) (Auto) 77.2 Lymphocytes (%) (Auto) 14.2 Monocytes (%) (Auto) 6.9 Eosinophils (%) (Auto) 1.0 Basophils (%) (Auto) 0.7 Neutrophils # (Auto) 5.5 Lymphocytes # (Auto) 1.0 Monocytes # (Auto) 0.5 Eosinophils # (Auto) 0.1 Basophils # (Auto) 0.1 CBC Comment DIFF FINAL Differential Comment Blood Urea Nitrogen 9 Creatinine 0.71 Random Glucose 81 Total Protein 6.3 Albumin 2.4 Calcium Level 8.6 Alkaline Phosphatase 667 Aspartate Amino Transf (AST/SGOT) 18 Alanine Aminotransferase (ALT/SGPT) 21 Total Bilirubin 0.4 Sodium Level 134 Potassium Level 3.6 Chloride Level 103 Carbon Dioxide Level 21.4 Anion Gap 10 Estimat Glomerular Filtration Rate 79 Physical Exam HEENT: Pupils round and reactive to light; normocephalic; atraumatic; no jaundice. Throat is clear. NECK: Neck is supple, no JVD, no lymphadenopathy. CHEST: Chest is clear to auscultation and percussion. CARDIAC: Regular rate and rhythm with no murmur gallop or rubs. ABDOMEN: Soft, nondistended, nontender; no hepatosplenomegaly; bowel sounds are present in all four quadrants. EXTREMITIES: No clubbing, cyanosis, or edema. SKIN: Normal; no rash; no jaundice. SENIOR ASIC ENGINEER: No focal deficits; alert and oriented times three. Assessment and Plan Plan Patient was seen and examined, agree with the above noted, questionable C. difficile colitis causing the finding on the CT scan. colonoscopy showed colitis possible C. difficile but cannot rule out ischemia biopsy was done mostly located in the rectum and sigmoid Continue antibiotic May start feeding Await biopsy results Hadley Rodrigues MD Nov 25, 2016 11:42
[2016-11-25] MEDS ORDERED: DO NOT ADM ANY ANTICOAGULANT DRUGS PRN (11:50)
--- NOTE | 2016-11-25 15:40 | PD.ID.CON ---
History of Present Illness Service ID Consult Requested By Reason for Consult Evaluation and Mment of recurrent Cdiff Primary Care Physician Alex Noel MD Diagnoses: History of Present Illness Mrs. Mack is a 80 y/o CF resident of assisted living facility at [facility]. Patient presented to the hospital with a 2 day history of bright red blood per rectum. Initially she started showing streaks of bright red blood on the toilet paper when wiping. On the morning of admission she had several episodes 5-6 in number. He shouldn't reported that her stools are formed. She denies any fever or chills. She reports crampy lower abdominal pain, belching and decreased appetite for the last several days. She denies any nausea or vomiting. Of note patient was here on September 22 for C. difficile colitis and she has had prior history of C. difficile colitis at least 2-3 times in the past. CT scan done on admission showed nonspecific colitis. Her C. difficile test was done although she had no diarrhea and this is reported as positive.During her last hospital admission she was started on a vancomycin taper recommended by infectious disease. At that time her c.diff result was epidemiologic 027 strain positive. Of note, she also has a mechanical aortic valve and takes Coumadin. She is presenting with supra therapeutic INR at 6.6, and was given 10 mg vitamin K infusion in the ED. Infectious disease is consulted for evaluation and management of recurrent C. difficile colitis. Review of Systems Constitutional: DENIES: Diaphoretic episodes, Fatigue, Fever, Weight gain, Weight loss, Chills, Dizziness, Change in appetite, Night Sweats Endocrine: DENIES: Abnorml menstrual pattern, Heat/cold intolerance, Polydipsia , Polyuria, Polyphagia Eyes: DENIES: Blurred vision, Diplopia, Eye inflammation, Eye pain, Vision loss , Photosensitivity, Double Vision Ears, nose, mouth, throat: DENIES: Tinnitus, Hearing loss, Vertigo, Nasal discharge, Oral lesions, Throat pain, Hoarseness, Ear Pain, Running Nose, Epistaxis, Sinus Pain, Toothache, Odynophagia Respiratory: DENIES: Apneas, Cough, Snoring, Wheezing, Hemoptysis, Sputum production, Shortness of breath Cardiovascular: DENIES: Chest pain, Palpitations, Syncope, Dyspnea on Exertion , PND, Lower Extremity Edema, Orthopnea, Claudication Gastrointestinal: COMPLAINS OF: Diarrhea, DENIES: Abdominal pain, Black stools , Bloody stools, Constipation, Nausea, Vomiting, Difficulty Swallowing, Anorexia Genitourinary: DENIES: Abnormal vaginal bleeding, Dysmenorrhea, Dyspareunia, Sexual dysfunction, Urinary frequency, Urinary incontinence, Urgency, Hematuria , Dysuria, Nocturia, Vaginal discharge Musculoskeletal: DENIES: Joint pain, Muscle aches, Stiffness, Joint Swelling, Back pain, Neck pain Integumentary: DENIES: Abnormal pigmentation, Pruritus, Rash, Nail changes, Breast masses, Breast skin changes, Nipple discharge Hematologic/lymphatic: DENIES: Bruising, Lymphadenopathy Immunologic/allergic: DENIES: Eczema, Urticaria Neurologic: DENIES: Abnormal gait, Headache, Localized weakness, Paresthesias, Seizures, Speech Problems, Tremor, Poor Balance Psychiatric: DENIES: Anxiety, Confusion, Mood changes, Depression, Hallucinations, Agitation, Suicidal Ideation, Homicidal Ideation, Delusions Except as stated in HPI: all other systems reviewed are Neg Past Family Social History Allergies: Coded Allergies: bee venom protein (honey bee) (Unverified Allergy, Severe, shock, 11/02/16) hydromorphone (Unverified Allergy, Severe, coded, 11/02/16) Sulfa (Sulfonamide Antibiotics) (Unverified Allergy, Intermediate, pass out, hives, 11/02/16) metronidazole (Unverified Allergy, Intermediate, seizures, 11/02/16) codeine (Unverified Allergy, Mild, pass out, 11/02/16) meperidine (Unverified Allergy, Mild, pass out, 11/02/16) morphine (Unverified Allergy, Mild, pass out, 11/02/16) penicillin G (Unverified Allergy, Mild, rash, 11/02/16) Influenza Virus Vaccines (Unverified Allergy, Unknown, allergic to eggs, ) vancomycin (Unverified Allergy, Unknown, hives, 11/02/16) PT CAN RECEIVE ORAL, BUT NOT IV Past Medical History Anemia - sees air traffic supervisor in [place], thinks its from heart valve Colitis with C. 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 Gaviria, internal audit senior manager. 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 Give 1 hr before or 2 hrs after any other medication Hydrochlorothiazide 12.5 Mg Cap 12.5 Mg PO DAILY Cozaar (Losartan Potassium) 25 Mg Tab 25 Mg PO DAILY Gabapentin 100 Mg Cap 100 Mg PO HS Reported Warfarin 3 Mg Tab 3 Mg PO DIRECTED 4.5mg (1 1/2 3mg tab) Mo/3mg TuWeThFrSaSu Gas-X Ultra Strength (Simethicone) 180 Mg Cap 180 Mg PO BID PRN Tylenol (Acetaminophen) 325 Mg Tab 650 Mg PO Q4H PRN Proair Hfa 8.5 GM Inh (Albuterol Sulfate) 90 Mcg/Act Aer 2 Puff INH Q6H PRN 108 mcg/actuation Probiotic (Saccharomyces Boulardii) 250 Mg Cap 250 Mg PO BID Levothyroxine (Levothyroxine Sodium) 25 Mcg Tab 25 Mcg PO DAILY Diltiazem ER 24 HR 180 Mg Sujata 180 Mg PO DAILY Active Ordered Medications Current Medications Medications (Trade) Dose Ordered Sig/Minda Route Start Time Stop Time Status Last Admin (Tylenol) 650 mg Q4H PRN PO 11/23/16 21:00 11/24/16 21:50 (Proair Hfa Inh) 2 puff Q6H PRN INH 11/23/16 21:00 (Cardizem Cd) 180 mg DAILY PO 11/24/16 09:00 11/25/16 08:45 (Neurontin) 100 mg HS PO 11/23/16 21:00 11/24/16 21:49 (Microzide) 12.5 mg DAILY PO 11/24/16 09:00 11/25/16 08:47 (Synthroid) 25 mcg DAILY@0600 PO 11/24/16 06:00 11/25/16 05:21 (Cozaar) 25 mg DAILY PO 11/24/16 09:00 11/25/16 08:45 (Mylicon Chew) 180 mg BID PRN PO 11/23/16 21:30 (Pill Splitter) 1 ea UNSCH PRN OTHER 11/23/16 21:30 Patient Own Medication PT OWN MED: PROBIO... BID PO 11/24/16 09:00 Future Hold Sodium Chloride 1,000 ml @ 100 mls/hr Q10H IV 11/23/16 21:14 11/25/16 03:14 (NS Flush) 2 ml UNSCH PRN IV FLUSH 11/23/16 21:15 (NS Flush) 2 ml BID IV FLUSH 11/24/16 09:00 11/24/16 21:51 (Zofran Inj) 4 mg Q6H PRN IVP 11/23/16 21:15 (Narcan Inj) 0.4 mg UNSCH PRN IV 11/23/16 21:15 (Alyssa-Colace) 1 tab BID PO 11/24/16 09:00 11/24/16 21:50 (Milk Of Magnesia Liq) 30 ml Q12H PRN PO 11/23/16 21:15 (Senokot) 17.2 mg Q12H PRN PO 11/23/16 21:15 (Dulcolax Supp) 10 mg DAILY PRN RECTAL 11/23/16 21:15 (Lactulose Liq) 30 ml DAILY PRN PO 11/23/16 21:15 (VANCOMYCIN for oral use only) 125 mg QID PO 11/24/16 09:00 11/25/16 14:12 Lactated Ringer's 1,000 ml @ 30 mls/hr Q24H PRN IV 11/24/16 22:00 11/27/16 21:59 Sodium Chloride 500 ml @ 30 mls/hr [id number] PRN IV 11/24/16 22:00 11/27/16 21:59 (Lopressor) 25 mg CINEMA OPERATOR PRN PO 11/24/16 22:00 11/27/16 21:59 (Betadine 5% Antisepsis Kit) 1 applic CINEMA OPERATOR PRN EACH NARE 11/24/16 22:00 11/27/16 21:59 (Chlorhexidine 2% Cloth) 3 pack CINEMA OPERATOR PRN TOPICAL 11/24/16 22:00 11/27/16 21:59 (NovoLIN R INJ) See Protocol Table ... CINEMA OPERATOR PRN SQ 11/24/16 22:00 11/27/16 21:59 (Protonix) 40 mg Q12HR PO 11/25/16 21:00 Miscellaneous Information ALL NURSING DEPARTME... UNSCH PRN .XX 11/25/16 11:50 11/26/16 11:49 Family History reviewed Social History reviewed and NC. No smoking, no alcohol. Has 2 sons who live in other states. Physical Exam Vital Signs Vital Signs Date Time Temp Pulse Resp B/P (MAP) Pulse Ox O2 Delivery O2 Flow Rate FiO2 11/25/16 12:30 98.2 60 16 137/68 (91) 96 Room Air 11/25/16 12:15 62 16 132/66 (88) 96 Room Air 11/25/16 12:00 97.9 72 17 176/72 (106) 99 11/25/16 12:00 63 16 143/65 (91) 95 Room Air 11/25/16 11:50 98.3 64 16 151/67 (95) 98 Nasal Cannula 3 11/25/16 08:00 97.5 73 20 164/104 (124) 95 11/25/16 05:35 64 11/25/16 04:00 97.9 64 16 133/62 (85) 96 11/25/16 00:00 97.7 59 18 113/59 (77) 97 11/24/16 23:23 18 11/24/16 20:00 98.5 73 18 133/59 (83) 100 11/24/16 16:30 98.1 61 16 151/67 (95) 97 Physical Exam GENERAL: This is a well-nourished, well-developed patient, in no apparent distress. SKIN: No rashes, ecchymoses or lesions. Cool and dry. HEAD: Atraumatic. Normocephalic. No temporal or scalp tenderness. EYES: Pupils equal round and reactive. Extraocular motions intact. No scleral icterus. No injection or drainage. ENT: Nose without bleeding, purulent drainage or septal hematoma. Throat without erythema, tonsillar hypertrophy or exudate. Uvula midline. Airway patent. NECK: Trachea midline. Supple, nontender, no meningeal signs. CARDIOVASCULAR: Regular rate and rhythm without murmurs, gallops, or rubs. RESPIRATORY: Clear to auscultation. Breath sounds equal bilaterally. No wheezes , rales, or rhonchi. GASTROINTESTINAL: Abdomen soft, non-tender, nondistended. MUSCULOSKELETAL: Extremities without clubbing, cyanosis, or edema. NEUROLOGICAL: Awake and alert. Grossly non focal Psych: cooperative IV line sites with no e.o infection Laboratory Laboratory Tests Test 11/25/16 10:47 White Blood Count 7.1 Red Blood Count 3.85 Hemoglobin 10.9 Hematocrit 34.8 Mean Corpuscular Volume 90.2 Mean Corpuscular Hemoglobin 28.4 Mean Corpuscular Hemoglobin Concent 31.5 Red Cell Distribution Width 15.5 Platelet Count 275 Mean Platelet Volume 7.6 Neutrophils (%) (Auto) 77.2 Lymphocytes (%) (Auto) 14.2 Monocytes (%) (Auto) 6.9 Eosinophils (%) (Auto) 1.0 Basophils (%) (Auto) 0.7 Neutrophils # (Auto) 5.5 Lymphocytes # (Auto) 1.0 Monocytes # (Auto) 0.5 Eosinophils # (Auto) 0.1 Basophils # (Auto) 0.1 CBC Comment DIFF FINAL Differential Comment Blood Urea Nitrogen 9 Creatinine 0.71 Random Glucose 81 Total Protein 6.3 Albumin 2.4 Calcium Level 8.6 Alkaline Phosphatase 667 Aspartate Amino Transf (AST/SGOT) 18 Alanine Aminotransferase (ALT/SGPT) 21 Total Bilirubin 0.4 Sodium Level 134 Potassium Level 3.6 Chloride Level 103 Carbon Dioxide Level 21.4 Anion Gap 10 Estimat Glomerular Filtration Rate 79 Result Diagram: 11/25/16 1047 11/25/16 1047 Imaging Last Impressions Abdomen/Pelvis CT 11/23/16 1632 Signed Impressions: Service Date/Time: Wednesday, November 23, 2016 19:23 - CONCLUSION: 1. Left-sided colitis also involving rectosigmoid. Minimal mural thickening in the cecal region. No abscess, obstruction, free fluid or free air. Findings are similar to September 22. Khaadr Watson MD Assessment and Plan Assessment and Plan Colitis: ? Cdiff ? Ischemic GI bleed present on admission: on coumadin s/p colonoscopy: Colitis. CT with colitis. Recurrent Cdiff history Recs Follow path: if pseudomembranes present will treat as Cdiff. Patient had no diarrhea on admission this time. Continue Vanco oral Avoid systemic antibiotics. Due to Inclement weather I will see pt next Mon. Other ID MDs covering for me. Blanca Tejeda MD Nov 25, 2016 15:40
[2016-11-25 18:59] LABS: INTERNATIONAL NORMALIZED RATIO 1.1 RATIO; PROTHROMBIN TIME - PATIENT 11.9 SEC (9.8-11.6)
[2016-11-25] MEDS: PANTOPRAZOLE SOD 40 MG DELAYED RELEASE TAB PO SCH (21:21)
[2016-11-25] MEDS: GABAPENTIN 100 MG CAP PO SCH (21:21)
[2016-11-25] MEDS: ACETAMINOPHEN 325 MG TAB PO PRN (21:23)
[2016-11-26] VITALS (7 sets, daily range): BP systolic 130–172; BP diastolic 60–72; PULSE 60–89; RESP 18–20; TEMP 97.5–98.5; O2SAT 96–100
[2016-11-26] MEDS: LEVOTHYROXINE SODIUM 25 MCG TAB PO SCH (06:38)
[2016-11-26] MEDS: ACETAMINOPHEN 325 MG TAB PO PRN ×2 (06:38→22:04)
--- NOTE | 2016-11-26 09:05 | HHI.FPPN ---
Subjective Remarks No acute issues overnight. Vitals are stable, patient remains afebrile. She had a well-formed bowel movement this morning. She denies any abdominal cramping or pain, no chest pain, fever, chills, nausea, vomiting, or bloody stool. Patient states that she feels back to her baseline but does not feel ready to go home today. She is tolerating by mouth. (Ingris Membreno MD, R3) Objective Vitals Vital Signs Date Time Temp Pulse Resp B/P (MAP) Pulse Ox O2 Delivery O2 Flow Rate FiO2 11/26/16 08:00 97.8 60 18 169/70 (103) 98 11/26/16 04:51 98.0 62 20 156/67 (96) 100 11/26/16 02:01 98.2 68 20 172/72 (105) 96 11/26/16 01:16 66 11/25/16 22:23 18 11/25/16 21:50 98.0 68 20 161/70 (100) 99 11/25/16 18:25 96 Nasal Cannula 3.00 11/25/16 16:00 97.9 72 17 120/72 (88) 99 11/25/16 12:30 98.2 60 16 137/68 (91) 96 Room Air 11/25/16 12:15 62 16 132/66 (88) 96 Room Air 11/25/16 12:00 97.9 72 17 176/72 (106) 99 11/25/16 12:00 63 16 143/65 (91) 95 Room Air 11/25/16 11:50 98.3 64 16 151/67 (95) 98 Nasal Cannula 3 I/O 11/25/16 11/25/16 11/25/16 11/26/16 11/26/16 11/26/16 07:00 15:00 23:00 07:00 15:00 23:00 Intake Total 1000 ml 150 ml 1220 ml Output Total 0 ml Balance 1000 ml 150 ml 1220 ml Intake Oral 220 ml IV Total 1000 ml 1000 ml Other 150 ml Output Stool Total 0 ml # Voids 12 0 2 # Bowel Movements 8 1 (Ingris Membreno MD, R3) Result Diagram: 11/25/16 1047 11/25/16 1047 Imaging Last Impressions Abdomen/Pelvis CT 11/23/16 1632 Signed Impressions: Service Date/Time: Wednesday, November 23, 2016 19:23 - CONCLUSION: 1. Left-sided colitis also involving rectosigmoid. Minimal mural thickening in the cecal region. No abscess, obstruction, free fluid or free air. Findings are similar to September 22. Khadar Watson MD Objective Remarks GENERAL: Well-nourished, well-developed female lying in bed comfortably, in no acute distress. SKIN: Warm and dry. HEAD: Atraumatic. Normocephalic. EYES: Pupils equal and round. No scleral icterus. No injection or drainage. ENT: No nasal bleeding or discharge. Mucous membranes pink and moist. NECK: Trachea midline. No JVD. CARDIOVASCULAR: Regular rate and rhythm. / [place]. RESPIRATORY: No accessory muscle use. Clear to auscultation. Breath sounds equal bilaterally. GASTROINTESTINAL: Abdomen soft, minimally tender throughout abdomen, nondistended. Hepatic and splenic margins not palpable. MUSCULOSKELETAL: Extremities without clubbing, cyanosis, or edema. No obvious deformities. NEUROLOGICAL: Awake and alert. No obvious cranial nerve deficits. Motor grossly within normal limits. Normal speech. PSYCHIATRIC: Appropriate mood and affect; insight and judgment normal. (Ingris Membreno MD, R3) A/P Assessment and Plan 80 year old female with a PMH significant for C. difficile colitis since May who presented with bright red blood in stool and was admitted for further evaluation of colitis and GI bleed. Discharge Planning Anticipate discharge back to [facility] in 1-2 days. (Ingris Membreno MD, R3) Attending Attestation Patient seen and examined. Case reviewed and discussed with the resident team. Agree with plan of care as discussed with me and documented in the resident note. pt still does not feel well enough to leave the hospital today. she is starting to eat. (Denise Ugalde MD) Problem List: (1) GI bleed ICD Codes: K92.2 - Gastrointestinal hemorrhage, unspecified Status: Resolved Plan: RESOLVED Bright red blood in stool concerning for lower GI bleed on admission. No obvious external or internal hemorrhoids on exam. History of colon resection in past. Last colonoscopy about one year ago. Supratherapeutic INR on admission, now s/p Vitamin K, INR now 1.1. H/H stable Plan: - Consult GI- appreciate recommendations. Colonoscopy on 11/[address] Rodrigues- significant for colitis, possible C. difficile but cannot rule out ischemia. Biopsy performed. Mostly located in the rectum and sigmoid. - Protonix 40mg PO BID - Threshold to transfuse is higher due to cardiac history (past CABG, mechanical heart valve) - Heart Healthy Diet (2) History of Clostridium difficile colitis ICD Codes: Z86.19 - History of Clostridium difficile colitis Status: Chronic Plan: History of c.diff colitis since May, has been treated 3 times. Admitted here in September for c.diff colitis and sent home on oral vancomycin taper. Now having formed stools. C.diff toxin remains positive. 11/[address] shows left-sided colitis involving rectosigmoid. Minimal mural thickening in the cecal region. Findings similar to September. Plan: - Continue vancomycin 125mg PO QID - Contact precautions - Consult Infectious Disease- continue oral vanco, will follow biopsy results, avoid systemic antibiotics (3) Mechanical heart valve present ICD Codes: Z95.2 - Presence of prosthetic heart valve Status: Chronic Plan: INR 6.6 with active GI bleeding on admission s/p vitamin K 10 mg IV, INR now subtherapeutic at 1.1 On Coumadin for mechanical heart valve. Power System Operator is Dr. Gaviria Plan: - Continue to monitor INR - Resume Coumadin today (4) Nutrition, metabolism, and development symptoms ICD Codes: R63.8 - Other symptoms and signs concerning food and fluid intake Status: Acute Plan: Fluids: Tolerating PO, will DC IV fluids Electrolytes: wnl, continue to monitor and replete as needed Nutrition: Heart healthy diet DVT PPx: SCD's, Lovenox 40 units SQ Q24H, resume Coumadin today dw Dr. Ugalde (Ingris Membreno MD, R3) Problem Qualifiers (1) GI bleed: Qualified Codes: K92.2 - Gastrointestinal hemorrhage, unspecified Ingris Membreno MD, R3 Nov 26, 2016 09:04 Denise Ugalde MD Nov 26, 2016 17:09
[2016-11-26] MEDS: DILTIAZEM-CD 180 MG CAP ER PO SCH (09:39)
[2016-11-26] MEDS: PANTOPRAZOLE SOD 40 MG DELAYED RELEASE TAB PO SCH ×2 (09:39→22:03)
[2016-11-26] MEDS: SODIUM CHLORIDE 0.9% FLUSH 10 ML FLUSH IV FLUSH SCH ×2 (09:40→22:04)
[2016-11-26] MEDS: VANCOMYCIN 500 MG VIAL (FOR ORAL USE ONLY) PO SCH ×4 (09:40→22:04)
[2016-11-26] MEDS: HYDROCHLOROTHIAZIDE 12.5 MG CAP PO SCH (09:40)
[2016-11-26] MEDS: DOCUSATE SODIUM 50 MG/SENNA 8.6 MG TAB PO SCH ×2 (09:40→22:07)
[2016-11-26] MEDS: LOSARTAN 25 MG TAB PO SCH (09:40)
[2016-11-26 11:20] LABS: AUTOMATED NEUTROPHIL # 3.4 TH/MM3 (1.8-7.7); BASOPHIL # 0.1 TH/MM3 (0-0.2); BASOPHIL % 1.2 % (0.0-2.0); EOSINOPHIL # 0.1 TH/MM3 (0-0.4); EOSINOPHIL % 2.4 % (0.0-4.0); HEMATOCRIT 34.6 % (35.0-46.0); HEMO FLAGS DIFF FINAL; LYMPH % 20.7 % (9.0-44.0); MEAN CELL VOLUME 88.6 FL (80.0-100.0); MEAN CORPUSCULAR HEMOGLOBIN 28.6 PG (27.0-34.0); MEAN CORPUSCULAR HGB CONC 32.3 % (32.0-36.0); MONO % 6.3 % (0.0-8.0); NEUT % 69.4 % (16.0-70.0); PLATELET COUNT 290 TH/MM3 (150-450); RED CELL DISTRIBUTION WIDTH 15.6 % (11.6-17.2); WHITE BLOOD COUNT 4.9 TH/MM3 (4.0-11.0)
[2016-11-26 11:45] LABS: ANION GAP 10 MEQ/L (5-15); AST (GOT) 14 U/L (15-37); BICARBONATE 23.9 MEQ/L (21.0-32.0); BLOOD UREA NITROGEN 8 MG/DL (7-18); CHLORIDE 103 MEQ/L (98-107); GLOMERULAR FILTRATION RATE 59 ML/MIN (>89); POTASSIUM 3.4 MEQ/L (3.5-5.1); SODIUM (NA) 137 MEQ/L (136-145)
[2016-11-26 11:49] LABS: ALKALINE PHOSPHATASE 593 U/L (45-117); ALT (GPT) 17 U/L (10-53); TOTAL BILIRUBIN ADULT 0.3 MG/DL (0.2-1.0)
[2016-11-26] MEDS ORDERED: ENOXAPARIN SODIUM 40 MG/0.4 ML SYRINGE SQ SCH (13:00)
[2016-11-26] MEDS: WARFARIN SOD 1 MG TAB PO SCH (16:59)
[2016-11-26] MEDS: GABAPENTIN 100 MG CAP PO SCH (22:03)
[2016-11-27] VITALS: BP 140/63; PULSE 68; RESP 20; TEMP 98.6; O2SAT 97
[2016-11-27 04:00] VITALS: BP 175/79; PULSE 61; RESP 20; TEMP 98.5; O2SAT 98
[2016-11-27] MEDS: LEVOTHYROXINE SODIUM 25 MCG TAB PO SCH (06:21)
[2016-11-27] MEDS: ACETAMINOPHEN 325 MG TAB PO PRN ×3 (06:23→20:54)
[2016-11-27 08:00] VITALS: BP 126/58; PULSE 62; RESP 16; TEMP 98.2; O2SAT 98
--- NOTE | 2016-11-27 08:43 | HHI.GIFU ---
Subjective Remarks Patient resting in bed. She is tolerating her diet. She denies any nausea or vomiting or abdominal pain. She has not had any diarrhea overnight. She states that this is her third or fourth episode of C. difficile colitis since May 2016. She reports that she does well on the oral Vanco tapers, but has recurring symptoms after she completes her course of antibiotics. (Yoana Bridges) Objective Vitals I&O Vital Signs Date Time Temp Pulse Resp B/P (MAP) Pulse Ox O2 Delivery O2 Flow Rate FiO2 11/27/16 04:00 98.5 61 20 175/79 (111) 98 11/27/16 00:00 98.6 68 20 140/63 (88) 97 11/26/16 18:16 89 11/26/16 16:00 97.5 64 20 130/60 (83) 100 11/26/16 12:00 98.5 67 18 161/70 (100) 100 I/O 11/26/16 11/26/16 11/26/16 11/27/16 11/27/16 11/27/16 07:00 15:00 23:00 07:00 15:00 23:00 Intake Total 480 ml Balance 480 ml Intake Oral 480 ml # Voids 2 3 4 # Bowel Movements 1 2 Laboratory Laboratory Tests Test 11/26/16 10:34 White Blood Count 4.9 Red Blood Count 3.90 Hemoglobin 11.2 Hematocrit 34.6 Mean Corpuscular Volume 88.6 Mean Corpuscular Hemoglobin 28.6 Mean Corpuscular Hemoglobin Concent 32.3 Red Cell Distribution Width 15.6 Platelet Count 290 Mean Platelet Volume 7.8 Neutrophils (%) (Auto) 69.4 Lymphocytes (%) (Auto) 20.7 Monocytes (%) (Auto) 6.3 Eosinophils (%) (Auto) 2.4 Basophils (%) (Auto) 1.2 Neutrophils # (Auto) 3.4 Lymphocytes # (Auto) 1.0 Monocytes # (Auto) 0.3 Eosinophils # (Auto) 0.1 Basophils # (Auto) 0.1 CBC Comment DIFF FINAL Differential Comment Blood Urea Nitrogen 8 Creatinine 0.91 Random Glucose 129 Total Protein 5.9 Albumin 2.2 Calcium Level 8.4 Alkaline Phosphatase 593 Aspartate Amino Transf (AST/SGOT) 14 Alanine Aminotransferase (ALT/SGPT) 17 Total Bilirubin 0.3 Sodium Level 137 Potassium Level 3.4 Chloride Level 103 Carbon Dioxide Level 23.9 Anion Gap 10 Estimat Glomerular Filtration Rate 59 Imaging Last Impressions Abdomen/Pelvis CT 11/23/16 1632 Signed Impressions: Service Date/Time: Wednesday, November 23, 2016 19:23 - CONCLUSION: 1. Left-sided colitis also involving rectosigmoid. Minimal mural thickening in the cecal region. No abscess, obstruction, free fluid or free air. Findings are similar to September 22. Khadar Watson MD Physical Exam HEENT: Normocephalic; atraumatic; no jaundice. CHEST: CTA CARDIAC: RRR ABDOMEN: Soft, nondistended, nontender; no hepatosplenomegaly; bowel sounds are present in all four quadrants. EXTREMITIES: No clubbing, cyanosis, or edema. SKIN: Normal; no rash; no jaundice. PRODUCT TEST SPECIALIST: No focal deficits; alert and oriented times three. (Yoana Bridges) Assessment and Plan Plan ASSESSMENT: - Recurrent C. difficile colitis. Patient reports a sister third or fourth episode since May and that she typically does well on the tapering dose of oral vanco, but has recurring symptoms after she completes her course. CDiff (+), Epid 027 (+). CT Scan abdomen and pelivs (11/23/16)---> left-sided colitis also involving rectosigmoid. Minimal mural thickening in the cecal region. No abscess obstruction or free fluid or free air. Findings are similar to September 22 minutes S/P Colonoscopy (11/25/16)---> significant Colitis, possible C. difficile related in the sigmoid area, there is an area of the rectum that could be ischemia biopsy was done from the sigmoid and rectum, some stool prevented vision a small lesion, the colon mucosa was otherwise normal, retroflex views revealed small internal hemorrhoids. Pathology pending. WBC 4.9. 2 BMs yesterday, none overnight. Oral vancomycin. Clinically, stable. - Lower GIB with BRBPR on admission. Not currently having. Colonoscopy as above. HH stable. - Anemia, stable. 11.2/34.6. - Mechanical heart valve. on anticoagulation PLAN: - ALICE - Await pathology - Cont. Oral Vancomycin - Monitor HH - Monitor Stool output - ID following - Supportive care - Further recommendations to follow based on results of above - Pt seen and examined by Dr. Beck and myself and this note is written on her behalf (Yoana Bridges) Physician Comments seen, examined agree with above consider Dificid if not better (Hortensia Beck MD) Yoana Bridges Nov 27, 2016 08:43 Hortensia Beck MD Nov 27, 2016 19:31
--- NOTE | 2016-11-27 09:43 | HHI.FPPN ---
Subjective Remarks No acute issues overnight. Vitals are stable, patient remains afebrile. She had one episode of diarrhea yesterday. She is currently tolerating by mouth without nausea or vomiting. She denies any chest pain, shortness of breath, fever, chills, abdominal pain or leg pain. She has not had any more GI bleeding. (Ingris Membreno MD, R3) Objective Vitals Vital Signs Date Time Temp Pulse Resp B/P (MAP) Pulse Ox O2 Delivery O2 Flow Rate FiO2 11/27/16 04:00 98.5 61 20 175/79 (111) 98 11/27/16 00:00 98.6 68 20 140/63 (88) 97 11/26/16 18:16 89 11/26/16 16:00 97.5 64 20 130/60 (83) 100 11/26/16 12:00 98.5 67 18 161/70 (100) 100 I/O 11/26/16 11/26/16 11/26/16 11/27/16 11/27/16 11/27/16 07:00 15:00 23:00 07:00 15:00 23:00 Intake Total 480 ml Balance 480 ml Intake Oral 480 ml # Voids 2 3 4 # Bowel Movements 1 2 (Ingris Membreno MD, R3) Result Diagram: 11/26/16 1034 11/26/16 1034 Imaging Last Impressions Abdomen/Pelvis CT 11/23/16 1632 Signed Impressions: Service Date/Time: Wednesday, November 23, 2016 19:23 - CONCLUSION: 1. Left-sided colitis also involving rectosigmoid. Minimal mural thickening in the cecal region. No abscess, obstruction, free fluid or free air. Findings are similar to September 22. Khadar Watson MD Objective Remarks GENERAL: Well-nourished, well-developed female sitting comfortably in bed eating breakfast, in no acute distress. SKIN: Warm and dry. HEAD: Atraumatic. Normocephalic. EYES: Pupils equal and round. No scleral icterus. No injection or drainage. ENT: No nasal bleeding or discharge. Mucous membranes pink and moist. NECK: Trachea midline. No JVD. CARDIOVASCULAR: Regular rate and rhythm. 2/6 CONCEPCIÓN. RESPIRATORY: No accessory muscle use. Clear to auscultation. Breath sounds equal bilaterally. GASTROINTESTINAL: Abdomen soft, minimally tender throughout abdomen, nondistended. Hepatic and splenic margins not palpable. MUSCULOSKELETAL: Extremities without clubbing, cyanosis, or edema. No obvious deformities. NEUROLOGICAL: Awake and alert. No obvious cranial nerve deficits. Motor grossly within normal limits. Normal speech. PSYCHIATRIC: Appropriate mood and affect; insight and judgment normal. (Ingris Membreno MD, R3) A/P Assessment and Plan 80 year old female with a PMH significant for C. difficile colitis since May who presented with bright red blood in stool and was admitted for further evaluation of colitis and GI bleed. Discharge Planning Anticipate discharge back to [facility] in 1-2 days. (Ingris Membreno MD, R3) Attending Attestation Patient seen and examined. Case reviewed and discussed Agree with plan of care as discussed with me and documented in the resident note. (Maylin Woodard MD) Problem List: (1) GI bleed ICD Codes: K92.2 - Gastrointestinal hemorrhage, unspecified Status: Resolved Plan: RESOLVED Bright red blood in stool concerning for lower GI bleed on admission. Supratherapeutic INR on admission, now s/p Vitamin K, INR now subtherapeutic. H/H stable Plan: - Consult GI- appreciate recommendations. Colonoscopy on 11/[address] Rodrigues- significant for colitis, possible C. difficile but cannot rule out ischemia. Biopsy performed. Mostly located in the rectum and sigmoid. 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 Admitted here in September for c.diff colitis and sent home on oral vancomycin taper. C.diff toxin remains positive. 11/[address] shows left-sided colitis involving rectosigmoid. Minimal mural thickening in the cecal region. Findings similar to September. 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 No further GI bleeding since admission. s/p vitamin K 10 mg IV, INR now subtherapeutic On Coumadin for mechanical heart valve. Solar Photovoltaic Designer is Dr. Gaviria Plan: - Coumadin 1mg PO daily, bridge with therapeutic Lovenox 65mg SQ Q12H - Continue to monitor INR (4) Nutrition, metabolism, and development symptoms ICD Codes: R63.8 - Other symptoms and signs concerning food and fluid intake Status: Acute Plan: Fluids: Tolerating PO Electrolytes: wnl, continue to monitor and replete as needed Nutrition: Heart healthy diet DVT PPx: SCD's, Lovenox 65 units SQ Q12H until Coumadin is therapeutic dw Dr. Woodard (Ingris Membreno MD, R3) Problem Qualifiers (1) GI bleed: Qualified Codes: K92.2 - Gastrointestinal hemorrhage, unspecified Ingris Membreno MD, R3 Nov 27, 2016 09:43 Maylin Woodard MD Nov 27, 2016 15:37
[2016-11-27] MEDS ORDERED: KETOROLAC TROMETHAMINE 10 MG TAB PO PRN (10:15)
[2016-11-27 11:05] LABS: AUTOMATED NEUTROPHIL # 5.3 TH/MM3 (1.8-7.7); BASOPHIL % 0.7 % (0.0-2.0); EOSINOPHIL # 0.1 TH/MM3 (0-0.4); EOSINOPHIL % 2.1 % (0.0-4.0); HEMATOCRIT 33.7 % (35.0-46.0); HEMO FLAGS DIFF FINAL; LYMPH % 13.9 % (9.0-44.0); MEAN CELL VOLUME 89.2 FL (80.0-100.0); MEAN CORPUSCULAR HEMOGLOBIN 29.3 PG (27.0-34.0); MEAN CORPUSCULAR HGB CONC 32.8 % (32.0-36.0); MONO % 8.2 % (0.0-8.0); NEUT % 75.1 % (16.0-70.0); PLATELET COUNT 284 TH/MM3 (150-450); RED BLOOD COUNT 3.78 MIL/MM3 (4.00-5.30); RED CELL DISTRIBUTION WIDTH 15.4 % (11.6-17.2); WHITE BLOOD COUNT 7.1 TH/MM3 (4.0-11.0)
[2016-11-27 11:11] LABS: APTT (PATIENT) 32.3 SEC (24.3-30.1); INTERNATIONAL NORMALIZED RATIO 1.1 RATIO; PROTHROMBIN TIME - PATIENT 12.1 SEC (9.8-11.6)
[2016-11-27] MEDS: SODIUM CHLORIDE 0.9% FLUSH 10 ML FLUSH IV FLUSH SCH ×2 (11:17→20:54)
[2016-11-27] MEDS: DILTIAZEM-CD 180 MG CAP ER PO SCH (11:17)
[2016-11-27] MEDS: PANTOPRAZOLE SOD 40 MG DELAYED RELEASE TAB PO SCH ×2 (11:18→20:49)
[2016-11-27] MEDS: HYDROCHLOROTHIAZIDE 12.5 MG CAP PO SCH (11:18)
[2016-11-27] MEDS: DOCUSATE SODIUM 50 MG/SENNA 8.6 MG TAB PO SCH ×2 (11:19→20:54)
[2016-11-27] MEDS: LOSARTAN 25 MG TAB PO SCH (11:19)
[2016-11-27] MEDS: VANCOMYCIN 500 MG VIAL (FOR ORAL USE ONLY) PO SCH ×4 (11:25→20:49)
[2016-11-27 11:48] LABS: ALKALINE PHOSPHATASE 590 U/L (45-117); ALT (GPT) 18 U/L (10-53); ANION GAP 10 MEQ/L (5-15); AST (GOT) 19 U/L (15-37); BICARBONATE 25.2 MEQ/L (21.0-32.0); BLOOD UREA NITROGEN 11 MG/DL (7-18); CHLORIDE 99 MEQ/L (98-107); GLOMERULAR FILTRATION RATE 55 ML/MIN (>89); POTASSIUM 3.8 MEQ/L (3.5-5.1); SODIUM (NA) 134 MEQ/L (136-145); TOTAL BILIRUBIN ADULT 0.3 MG/DL (0.2-1.0)
[2016-11-27 12:00] VITALS: BP 134/60; PULSE 61; RESP 18; TEMP 97.8; O2SAT 98
[2016-11-27 16:00] VITALS: BP 156/68; PULSE 64; RESP 16; TEMP 98.2; O2SAT 99
[2016-11-27] MEDS: WARFARIN SOD 1 MG TAB PO SCH (18:14)
[2016-11-27 20:00] VITALS: BP 165/74; PULSE 66; RESP 16; TEMP 97.9; O2SAT 95
[2016-11-27] MEDS: GABAPENTIN 100 MG CAP PO SCH (20:49)
[2016-11-27] MEDS: ENOXAPARIN SODIUM 80 MG/0.8 ML SYRINGE SQ SCH (20:50)
[2016-11-28] VITALS: BP 144/66; PULSE 70; RESP 17; TEMP 98.4; O2SAT 96
[2016-11-28 04:00] VITALS: BP 168/77; PULSE 62; RESP 16; TEMP 98; O2SAT 98
[2016-11-28] MEDS: LEVOTHYROXINE SODIUM 25 MCG TAB PO SCH (05:45)
[2016-11-28 08:00] VITALS: BP 177/72; PULSE 68; RESP 16; TEMP 98.3; O2SAT 98
[2016-11-28 08:29] LABS: HEMATOCRIT 32.1 % (35.0-46.0); MEAN CELL VOLUME 89.2 FL (80.0-100.0); MEAN CORPUSCULAR HEMOGLOBIN 28.9 PG (27.0-34.0); MEAN CORPUSCULAR HGB CONC 32.4 % (32.0-36.0); PLATELET COUNT 226 TH/MM3 (150-450); RED BLOOD COUNT 3.59 MIL/MM3 (4.00-5.30); RED CELL DISTRIBUTION WIDTH 15.8 % (11.6-17.2); REVIEW FLAG FINAL; WHITE BLOOD COUNT 5.4 TH/MM3 (4.0-11.0)
[2016-11-28 08:39] LABS: INTERNATIONAL NORMALIZED RATIO 1.2 RATIO
[2016-11-28] MEDS: DOCUSATE SODIUM 50 MG/SENNA 8.6 MG TAB PO SCH ×2 (09:00→20:35)
[2016-11-28] MEDS: DILTIAZEM-CD 180 MG CAP ER PO SCH (10:00)
[2016-11-28] MEDS: PANTOPRAZOLE SOD 40 MG DELAYED RELEASE TAB PO SCH ×2 (10:00→20:34)
[2016-11-28] MEDS: LOSARTAN 25 MG TAB PO SCH (10:01)
[2016-11-28] MEDS: VANCOMYCIN 500 MG VIAL (FOR ORAL USE ONLY) PO SCH ×4 (10:01→20:33)
[2016-11-28] MEDS: ENOXAPARIN SODIUM 80 MG/0.8 ML SYRINGE SQ SCH ×2 (10:01→20:33)
[2016-11-28] MEDS: HYDROCHLOROTHIAZIDE 12.5 MG CAP PO SCH (10:01)
[2016-11-28] MEDS: SODIUM CHLORIDE 0.9% FLUSH 10 ML FLUSH IV FLUSH SCH ×2 (10:02→20:39)
[2016-11-28] MEDS: ACETAMINOPHEN 325 MG TAB PO PRN ×2 (10:18→20:33)
[2016-11-28 12:00] VITALS: BP 99/50; PULSE 69; RESP 16; TEMP 98.6; O2SAT 97
--- NOTE | 2016-11-28 12:10 | HHI.FPPN ---
Subjective Remarks No acute events overnight. Vital signs unremarkable except for slightly elevated systolic blood pressure. This morning she reports that she is feeling well. She has been having normal stool for quite some time now. Tolerating diet without issues. Has no complaints at this time. Objective Vitals Vital Signs Date Time Temp Pulse Resp B/P (MAP) Pulse Ox O2 Delivery O2 Flow Rate FiO2 11/28/16 08:00 98.3 68 16 177/72 (107) 98 11/28/16 04:00 98.0 62 16 168/77 (107) 98 11/28/16 00:00 98.4 70 17 144/66 (92) 96 11/27/16 20:00 97.9 66 16 165/74 (104) 95 11/27/16 16:00 98.2 64 16 156/68 (97) 99 11/27/16 12:00 97.8 61 18 134/60 (84) 98 I/O 11/27/16 11/27/16 11/27/16 11/28/16 11/28/16 11/28/16 07:00 15:00 23:00 07:00 15:00 23:00 Intake Total 1200 ml 240 ml Balance 1200 ml 240 ml Intake Oral 1200 ml 240 ml # Voids 4 6 3 # Bowel Movements 6 1 Result Diagram: 11/28/16 0753 11/27/16 1016 Objective Remarks GENERAL: Well-nourished, well-developed female sitting comfortably in bed eating breakfast, in no acute distress. SKIN: Warm and dry. EYES: Pupils equal and round. No scleral icterus. No injection or drainage. CARDIOVASCULAR: Regular rate and rhythm. 2/6 CONCEPCIÓN. RESPIRATORY: No accessory muscle use. Clear to auscultation. Breath sounds equal bilaterally. GASTROINTESTINAL: Abdomen non distended MUSCULOSKELETAL: Extremities without clubbing, cyanosis, or edema. No obvious deformities. NEUROLOGICAL: Awake and alert. No obvious cranial nerve deficits. Motor grossly within normal limits. Normal speech. PSYCHIATRIC: Appropriate mood and affect; insight and judgment normal. A/P Assessment and Plan 80 year old female with a PMH significant for C. difficile colitis since May who presented with bright red blood in stool and was admitted for further evaluation of colitis and GI bleed. Found to have supratherapeutic INR which has resolved Discharge Planning Anticipate discharge back to [facility] in 1-2 days once biopsy has resulted venancio Woodard Problem List: (1) GI bleed ICD Codes: K92.2 - Gastrointestinal hemorrhage, unspecified Status: Resolved Plan: RESOLVED Bright red blood in stool concerning for lower GI bleed on admission. Supratherapeutic INR on admission, now s/p Vitamin K, INR now subtherapeutic. H/H stable Plan: - Consult GI- appreciate recommendations. Colonoscopy on 11/[address] Rodrigues- significant for colitis, possible C. difficile but cannot rule out ischemia. Biopsy performed. Mostly located in the rectum and sigmoid. - Protonix 40mg PO BID - Threshold to transfuse is higher due to cardiac history (past CABG, mechanical heart valve) - Heart Healthy Diet (2) History of Clostridium difficile colitis ICD Codes: Z86.19 - History of Clostridium difficile colitis Status: Chronic Plan: Episode of diarrhea resolved History of c.diff colitis since May, has been treated 3 times. Admitted here in September for c.diff colitis and sent home on oral vancomycin taper. C.diff toxin remains positive. 11/[address] shows left-sided colitis involving rectosigmoid. Minimal mural thickening in the cecal region. Findings similar to September. Plan: - Continue vancomycin 125mg PO QID - Consult Infectious Disease- continue oral vanco, will follow biopsy results, avoid systemic antibiotics (3) Mechanical heart valve present ICD Codes: Z95.2 - Presence of prosthetic heart valve Status: Chronic Plan: INR 6.6 with active GI bleeding on admission. No further GI bleeding since admission. s/p vitamin K 10 mg IV, INR now subtherapeutic On Coumadin for mechanical heart valve. Trucking Contractor is Dr. Gaviria Plan: - Coumadin 1mg PO daily, bridge with therapeutic Lovenox 65mg SQ Q12H - Continue to monitor INR (4) Nutrition, metabolism, and development symptoms ICD Codes: R63.8 - Other symptoms and signs concerning food and fluid intake Status: Acute Plan: Fluids: Tolerating PO Electrolytes: wnl, continue to monitor and replete as needed Nutrition: Heart healthy diet DVT PPx: SCD's, Lovenox 65 units SQ Q12H until Coumadin is therapeutic venancio Woodard Problem Qualifiers (1) GI bleed: Qualified Codes: K92.2 - Gastrointestinal hemorrhage, unspecified Luzma Kearns MD, R3 Nov 28, 2016 12:10
[2016-11-28 16:00] VITALS: BP 175/80; PULSE 70; RESP 16; TEMP 99; O2SAT 100
[2016-11-28] MEDS: WARFARIN SOD 1 MG TAB PO SCH (16:42)
[2016-11-28 20:00] VITALS: BP 116/58; PULSE 78; RESP 18; TEMP 98.2; O2SAT 92
[2016-11-28] MEDS: GABAPENTIN 100 MG CAP PO SCH (20:33)
[2016-11-29] VITALS (8 sets, daily range): BP systolic 93–180; BP diastolic 53–86; PULSE 62–72; RESP 17–18; TEMP 97.9–98.9; O2SAT 93–100
[2016-11-29] MEDS: ACETAMINOPHEN 325 MG TAB PO PRN ×3 (05:43→20:50)
[2016-11-29] MEDS: PANTOPRAZOLE SOD 40 MG DELAYED RELEASE TAB PO SCH ×2 (08:59→20:51)
[2016-11-29] MEDS: HYDROCHLOROTHIAZIDE 12.5 MG CAP PO SCH (08:59)
[2016-11-29] MEDS: DILTIAZEM-CD 180 MG CAP ER PO SCH (08:59)
[2016-11-29] MEDS: LOSARTAN 25 MG TAB PO SCH (08:59)
[2016-11-29] MEDS: DOCUSATE SODIUM 50 MG/SENNA 8.6 MG TAB PO SCH ×2 (08:59→21:00)
[2016-11-29] MEDS: ENOXAPARIN SODIUM 80 MG/0.8 ML SYRINGE SQ SCH ×2 (09:00→20:50)
[2016-11-29] MEDS: SODIUM CHLORIDE 0.9% FLUSH 10 ML FLUSH IV FLUSH SCH ×2 (09:01→21:00)
[2016-11-29] MEDS: VANCOMYCIN 500 MG VIAL (FOR ORAL USE ONLY) PO SCH ×4 (09:01→20:51)
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
[2016-11-29 15:55] LABS: INTERNATIONAL NORMALIZED RATIO 1.3 RATIO; PROTHROMBIN TIME - PATIENT 14.6 SEC (9.8-11.6)
[2016-11-29] MEDS: WARFARIN SOD 1 MG TAB PO SCH (15:59)
[2016-11-29] MEDS ORDERED: WARFARIN SOD 1 MG TAB PO ONE (17:00)
[2016-11-29] MEDS: GABAPENTIN 100 MG CAP PO SCH (20:51)
[2016-11-30 00:02] VITALS: BP 136/62; PULSE 67; RESP 16; TEMP 98; O2SAT 97
[2016-11-30 04:23] VITALS: BP 144/67; PULSE 57; RESP 17; TEMP 98; O2SAT 97
[2016-11-30] MEDS: LEVOTHYROXINE SODIUM 25 MCG TAB PO SCH (06:03)
[2016-11-30] MEDS: VANCOMYCIN 500 MG VIAL (FOR ORAL USE ONLY) PO SCH ×4 (08:58→21:06)
[2016-11-30] MEDS: ENOXAPARIN SODIUM 80 MG/0.8 ML SYRINGE SQ SCH ×2 (08:58→21:06)
[2016-11-30] MEDS: HYDROCHLOROTHIAZIDE 12.5 MG CAP PO SCH (08:59)
[2016-11-30] MEDS: LOSARTAN 25 MG TAB PO SCH (08:59)
[2016-11-30] MEDS: DILTIAZEM-CD 180 MG CAP ER PO SCH (08:59)
[2016-11-30] MEDS: PANTOPRAZOLE SOD 40 MG DELAYED RELEASE TAB PO SCH (08:59)
[2016-11-30] MEDS: SODIUM CHLORIDE 0.9% FLUSH 10 ML FLUSH IV FLUSH SCH ×2 (08:59→21:07)
[2016-11-30] MEDS: DOCUSATE SODIUM 50 MG/SENNA 8.6 MG TAB PO SCH ×2 (09:00→21:07)
[2016-11-30 09:32] VITALS: BP 140/60; PULSE 74; RESP 20; TEMP 98.3; O2SAT 97
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
[2016-11-30 12:55] LABS: INTERNATIONAL NORMALIZED RATIO 1.4 RATIO; PROTHROMBIN TIME - PATIENT 15.7 SEC (9.8-11.6)
[2016-11-30 12:59] VITALS: BP 106/53; PULSE 68; RESP 20; TEMP 98.3; O2SAT 98
[2016-11-30] MEDS: WARFARIN SOD 2 MG TAB PO SCH (16:10)
--- NOTE | 2016-11-30 17:13 | HHI.GIFU ---
Subjective Remarks Resting in bed. Feeling better. No bowel movements yesterday, but has had 5 SOLID bowel movements today. No abdominal pain. Tolerating diet. (Yoana Bridges) Objective Vitals I&O Vital Signs Date Time Temp Pulse Resp B/P (MAP) Pulse Ox O2 Delivery O2 Flow Rate FiO2 11/30/16 12:59 98.3 68 20 106/53 (70) 98 11/30/16 09:32 98.3 74 20 140/60 (86) 97 11/30/16 04:23 98.0 57 17 144/67 (92) 97 11/30/16 00:02 98.0 67 16 136/62 (86) 97 11/29/16 20:39 98.0 69 17 180/86 (117) 100 11/29/16 18:25 97 21 I/O 11/29/16 11/29/16 11/29/16 11/30/16 11/30/16 11/30/16 07:00 15:00 23:00 07:00 15:00 23:00 Intake Total 480 ml 360 ml Balance 480 ml 360 ml Intake Oral 480 ml 360 ml # Voids 4 7 4 3 # Bowel Movements 1 Laboratory Laboratory Tests Test 11/30/16 11:42 Prothrombin Time 15.7 Prothromb Time International Ratio 1.4 Imaging Last Impressions Abdomen/Pelvis CT 11/23/16 1632 Signed Impressions: Service Date/Time: Wednesday, November 23, 2016 19:23 - CONCLUSION: 1. Left-sided colitis also involving rectosigmoid. Minimal mural thickening in the cecal region. No abscess, obstruction, free fluid or free air. Findings are similar to September 22. Khadar Watson MD Physical Exam HEENT: Normocephalic; atraumatic; no jaundice. CHEST: CTA CARDIAC: RRR ABDOMEN: Soft, nondistended, nontender; no hepatosplenomegaly; bowel sounds are present in all four quadrants. EXTREMITIES: No clubbing, cyanosis, or edema. SKIN: Normal; no rash; no jaundice. ESCORT VEHICLE DRIVER: No focal deficits; alert and oriented times three. (Yoana Bridges) Assessment and Plan Plan ASSESSMENT: - Recurrent C. difficile colitis. Patient reports a sister third or fourth episode since May and that she typically does well on the tapering dose of oral vanco, but has recurring symptoms after she completes her course. CDiff (+), Epid 027 (+). CT Scan abdomen and pelivs (11/23/16)---> left-sided colitis also involving rectosigmoid. Minimal mural thickening in the cecal region. No abscess obstruction or free fluid or free air. Findings are similar to September 22 minutes S/P Colonoscopy (11/25/16)---> significant Colitis, possible C. difficile related in the sigmoid area, there is an area of the rectum that could be ischemia biopsy was done from the sigmoid and rectum, some stool prevented vision a small lesion, the colon mucosa was otherwise normal, retroflex views revealed small internal hemorrhoids. Pathology mild acute colitis with nonspecific features (sigmoid), mild acute colitis and focal mucosal erosions in rectum. No bms yesterday. 5 FORMED bowel movements today. Oral vancomycin. Clinically, stable. - Lower GIB with BRBPR on admission. No further issues Colonoscopy as above. HH stable. - Anemia, stable. 10.4/32.1 - Mechanical heart valve. on anticoagulation PLAN: - ALICE - Cont. Oral Vancomycin per ID recommendations - Monitor HH - Monitor Stool output - ID following, recommends avoiding systemic abx - Supportive care - Further recommendations to follow based on results of above - Pt seen and examined by Dr. Beck and myself and this note is written on her behalf (Yoana Bridges) Physician Comments seen, examined agree with above alp continue to increase, elevated at base line few month ago malcolm, Asma , ama , celiac panel, ggtp, alp isoenzymes abdominal us, cannot have mrcp due to mechanical heart valve possible drug effect, no indication of biliary obstruction at this point (Hortensia Beck MD) Yoana Bridges Nov 30, 2016 17:13 Hortensia Beck MD Nov 30, 2016 18:32
[2016-11-30 17:43] VITALS: BP 118/54; PULSE 65; RESP 20; TEMP 98.2; O2SAT 94
[2016-11-30 20:23] VITALS: BP 119/56; PULSE 70; RESP 17; TEMP 98.9; O2SAT 97
[2016-11-30] MEDS: GABAPENTIN 100 MG CAP PO SCH (21:07)
[2016-11-30] MEDS: ACETAMINOPHEN 325 MG TAB PO PRN (21:21)
[2016-12-01] VITALS (7 sets, daily range): BP systolic 105–148; BP diastolic 51–97; PULSE 57–70; RESP 16–18; TEMP 98.2–98.7; O2SAT 94–97
[2016-12-01] MEDS: LEVOTHYROXINE SODIUM 25 MCG TAB PO SCH (05:26)
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
--- NOTE | 2016-12-01 08:08 | HHI.PR ---
Addendum to Inpatient Note Addendum Reason: Additional Documentation Additional Information Chart review documentation: Path reviewed: mild acute colitis. Recommend vanco 125 mg po q6hrs for additional 10 days. Will sign off please call back if any change in clinical condition or questions. Blanca Tejeda MD Dec 01, 2016 08:08
[2016-12-01] MEDS: SODIUM CHLORIDE 0.9% FLUSH 10 ML FLUSH IV FLUSH SCH ×2 (09:00→21:00)
[2016-12-01] MEDS: DOCUSATE SODIUM 50 MG/SENNA 8.6 MG TAB PO SCH ×3 (09:00→21:00)
[2016-12-01] MEDS: VANCOMYCIN 500 MG VIAL (FOR ORAL USE ONLY) PO SCH ×4 (09:00→21:00)
--- NOTE | 2016-12-01 09:24 | RADRPT ---
EXAM DATE/TIME: 12/01/2016 08:09 [place] COMPARISON: No previous studies available for comparison. INDICATIONS : Abnormal labs. MEDICAL HISTORY : Chronic obstructive pulmonary disease. Hypothyroidism. Coronary artery disease. Anticoagulant thera py, Coumadin. Arthritis. Anemia. Chronic colitis. C.diff. Measles. Blood transfusion. SURGICAL HISTORY : Hysterectomy. Fusion, cervical. Cholecystectomy. CABG. Aortic valve replacement. Colon resection. Car otid artery surgery. ENCOUNTER: Initial ACUITY: 2 days PAIN SCORE: 0/10 LOCATION: Bilateral upper quadrant MEASUREMENTS: LIVER: 13.8 cm length COMMON DUCT: 8 mm RIGHT KIDNEY: 9.0 x 4.1 x 4.0 cm LEFT KIDNEY: 9.1 x 4.6 x 4.7 cm SPLEEN: 9.9 cm length AORTA: 2.2cm maximal FINDINGS: LIVER: Normal echotexture without focal lesion or ductal dilatation. COMMON DUCT: No intraluminal mass or stone visualized. GALLBLADDER: Surgically absent. PANCREAS: The visualized portions are within normal limits. RIGHT KIDNEY: No hydronephrosis, stone or mass. LEFT KIDNEY: No hydronephrosis, stone or mass. SPLEEN: No focal lesion except for calcified granuloma. AORTA: Non aneurysmal. IVC: Within normal limits. CONCLUSION: Normal examination status post cholecystectomy. Ervin Garcia MD on December 01, 2016 at 9:22 Board Certified Radiologist. This report was verified electronically.
[2016-12-01] MEDS: PANTOPRAZOLE SOD 40 MG DELAYED RELEASE TAB PO SCH (09:25)
[2016-12-01] MEDS: LOSARTAN 25 MG TAB PO SCH (09:25)
[2016-12-01] MEDS: DILTIAZEM-CD 180 MG CAP ER PO SCH (09:25)
[2016-12-01] MEDS: HYDROCHLOROTHIAZIDE 12.5 MG CAP PO SCH (09:26)
[2016-12-01] MEDS: ENOXAPARIN SODIUM 80 MG/0.8 ML SYRINGE SQ SCH ×2 (09:26→22:01)
[2016-12-01 10:27] LABS: INTERNATIONAL NORMALIZED RATIO 1.5 RATIO; PROTHROMBIN TIME - PATIENT 16.7 SEC (9.8-11.6)
[2016-12-01 10:42] LABS: GAMMA GT 410 U/L (5-55)
[2016-12-01 10:45] LABS: FERRITIN 790 NG/ML (8-252)
[2016-12-01] MEDS: ACETAMINOPHEN 325 MG TAB PO PRN ×2 (12:11→22:00)
[2016-12-01] MEDS: WARFARIN SOD 2 MG TAB PO SCH (15:33)
[2016-12-01] MEDS ORDERED: COUM2TAB PO (17:30)
[2016-12-01] MEDS ORDERED: ENOX60P SQ (17:30)
[2016-12-01] MEDS ORDERED: VANC125C3 PO (17:30)
--- NOTE | 2016-12-01 17:30 | HHI.DCPOC ---
Discharge Care Plan Diagnosis: (1) Clostridium difficile colitis (2) Colitis Goals to Promote Your Health * To prevent worsening of your condition and complications * To maintain your health at the optimal level Directions to Meet Your Goals Take your medications as prescribed Follow your dietary instruction Follow activity as directed Keep your appointments as scheduled Take your immunizations and boosters as scheduled If your symptoms worsen call your PCP, if no PCP go to Urgent Care Center or Emergency Room Smoking is Dangerous to Your Health. Avoid second hand smoke Call the 24-hour hour crisis hotline for domestic abuse at Ingris Membreno MD, R3 Dec 01, 2016 17:30
[2016-12-01 21:55] LABS: INDIRECT BILIRUBIN 0.2 MG/DL (0.0-0.8); TOTAL BILIRUBIN ADULT 0.3 MG/DL (0.2-1.0)
[2016-12-01] MEDS: GABAPENTIN 100 MG CAP PO SCH (22:01)
[2016-12-02 00:30] VITALS: BP 102/50; PULSE 58; RESP 16; TEMP 98.3; O2SAT 97
[2016-12-02 04:35] VITALS: BP 128/63; PULSE 57; RESP 17; TEMP 98; O2SAT 99
[2016-12-02] MEDS: LEVOTHYROXINE SODIUM 25 MCG TAB PO SCH (07:48)
[2016-12-02 08:00] VITALS: BP 144/67; PULSE 60; RESP 15; TEMP 98.4; O2SAT 95
[2016-12-02] MEDS: ENOXAPARIN SODIUM 80 MG/0.8 ML SYRINGE SQ SCH ×2 (08:37→18:05)
[2016-12-02] MEDS: DOCUSATE SODIUM 50 MG/SENNA 8.6 MG TAB PO SCH ×2 (08:37→18:05)
[2016-12-02] MEDS: VANCOMYCIN 500 MG VIAL (FOR ORAL USE ONLY) PO SCH ×3 (08:38→18:05)
[2016-12-02] MEDS: DILTIAZEM-CD 180 MG CAP ER PO SCH (08:38)
[2016-12-02] MEDS: SODIUM CHLORIDE 0.9% FLUSH 10 ML FLUSH IV FLUSH SCH ×2 (08:38→18:05)
[2016-12-02] MEDS: HYDROCHLOROTHIAZIDE 12.5 MG CAP PO SCH (08:38)
[2016-12-02] MEDS: PANTOPRAZOLE SOD 40 MG DELAYED RELEASE TAB PO SCH (08:38)
[2016-12-02] MEDS: LOSARTAN 25 MG TAB PO SCH (08:38)
[2016-12-02] MEDS: ACETAMINOPHEN 325 MG TAB PO PRN (08:44)
--- NOTE | 2016-12-02 11:10 | HHI.FPPN ---
Subjective Remarks No acute issues overnight. Vitals are stable, patient remains afebrile. She denies any abdominal pain, diarrhea, bloody stool, chest pain, shortness of breath, fever, chills, nausea or vomiting. She is tolerating by mouth. She is having regular bowel movements. (Ingris Membreno MD, R3) Objective Vitals Vital Signs Date Time Temp Pulse Resp B/P (MAP) Pulse Ox O2 Delivery O2 Flow Rate FiO2 12/02/16 08:00 98.4 60 15 144/67 (92) 95 12/02/16 04:35 98.0 57 17 128/63 (84) 99 12/02/16 00:30 98.3 58 16 102/50 (67) 97 12/01/16 22:07 21 12/01/16 20:31 98.7 59 16 116/97 (103) 97 12/01/16 16:00 98.6 57 18 123/56 (78) 95 12/01/16 12:00 98.3 68 18 108/52 (70) 94 I/O 12/01/16 12/01/16 12/01/16 12/02/16 12/02/16 12/02/16 07:00 15:00 23:00 07:00 15:00 23:00 Intake Total 480 ml 240 ml 120 ml Balance 480 ml 240 ml 120 ml Intake Oral 480 ml 240 ml 120 ml # Voids 2 3 3 2 # Bowel Movements 0 1 2 (Ingris Membreno MD, R3) Result Diagram: 11/28/16 0753 Imaging Last Impressions Abdomen Ultrasound 12/01/16 0000 Signed Impressions: Service Date/Time: November 08:09 - CONCLUSION: Normal examination status post cholecystectomy. Ervin Garcia MD Abdomen/Pelvis CT 11/23/16 1632 Signed Impressions: Service Date/Time: Wednesday, November 23, 2016 19:23 - CONCLUSION: 1. Left-sided colitis also involving rectosigmoid. Minimal mural thickening in the cecal region. No abscess, obstruction, free fluid or free air. Findings are similar to September 22. Khadar Watson MD Objective Remarks GENERAL: Well-nourished, well-developed female laying comfortably in bed. SKIN: Warm and dry. EYES: Pupils equal and round. No scleral icterus. No injection or drainage. CARDIOVASCULAR: Regular rate and rhythm. 2/6 CONCEPCIÓN. RESPIRATORY: No accessory muscle use. Clear to auscultation. Breath sounds equal bilaterally. GASTROINTESTINAL: Abdomen soft, non-tender, non distended. Bowel sounds presents and active. MUSCULOSKELETAL: Extremities without clubbing, cyanosis, or edema. NEUROLOGICAL: Awake and alert. No obvious cranial nerve deficits. Motor grossly within normal limits. Normal speech. PSYCHIATRIC: Alert and oriented 3. Appropriate mood and affect; insight and judgment normal. (Ingris Membreno MD, R3) A/P Assessment and Plan 80 year old female with a PMH significant for C. difficile colitis since May who presented with bright red blood in stool and was admitted for further evaluation of colitis and GI bleed. Found to have supratherapeutic INR which has resolved. Medically clear for discharge and [facility] is ready to receive her. Discharge Planning Anticipate discharge back to [facility] today now that they have power. dw Dr. Ugalde (Ingris Membreno MD, R3) Attending Attestation Patient seen and examined. Case reviewed and discussed with the resident team. Agree with plan of care as discussed with me and documented in the resident note. elevated alk phos can also be non GI. some elderly pts have Pagets as a relatively common reason. this can be investigated as an out pt depending on her pending studies (Denise Ugalde MD) Problem List: (1) Alkaline phosphatase elevation ICD Codes: R74.8 - Abnormal levels of other serum enzymes Status: Acute Plan: Alkaline phosphatase elevated from baseline GI to evaluate further with MADDIE, ASMA, AMA, celiac panel, ggtp, alp isoenzymes which are currently pending Abdomen ultrasound shows normal examination s/p cholecystectomy Patient to follow-up with GI as outpatient (2) History of Clostridium difficile colitis ICD Codes: Z86.19 - History of Clostridium difficile colitis Status: Chronic Plan: Colonoscopy on 11/[address] Rodrigues- significant for colitis, possible C. difficile but cannot rule out ischemia. Biopsy performed. Mostly located in the rectum and sigmoid. No further episodes of diarrhea History of c.diff colitis since May, has been treated 3 times. Admitted here in September for c.diff colitis and sent home on oral vancomycin taper. C.diff toxin remains positive. 11/[address] shows left-sided colitis involving rectosigmoid. Minimal mural thickening in the cecal region. Findings similar to September. Pathology report shows mild acute colitis with nonspecific features in the sigmoid colon and mild acute colitis with focal mucosal erosion in the rectum. Plan: - Continue vancomycin 125mg PO QID - Consult Infectious Disease- continue oral vanco for 10 more days (3) Mechanical heart valve present ICD Codes: Z95.2 - Presence of prosthetic heart valve Status: Chronic Plan: INR 6.6 with active GI bleeding on admission. No further GI bleeding since admission. s/p vitamin K 10 mg IV, INR now subtherapeutic On Coumadin for mechanical heart valve. Web Marketing Manager is Dr. Gaviria Plan: - Increase to Coumadin 2mg PO daily, bridge with therapeutic Lovenox 65mg SQ Q12H - Continue to monitor INR (4) Nutrition, metabolism, and development symptoms ICD Codes: R63.8 - Other symptoms and signs concerning food and fluid intake Status: Acute Plan: Fluids: Tolerating PO Electrolytes: wnl, continue to monitor and replete as needed Nutrition: Heart healthy diet DVT PPx: SCD's, Lovenox 65 units SQ Q12H until Coumadin is therapeutic (Ingris Membreno MD, R3) Ingris Membreno MD, R3 Dec 02, 2016 11:10 Denise Ugalde MD Dec 02, 2016 16:20
[2016-12-02 12:11] VITALS: BP 143/63; PULSE 65; RESP 20; TEMP 98.4; O2SAT 96
[2016-12-02] MEDS ORDERED: GAS-CAP3 PO (13:04)
[2016-12-02] MEDS ORDERED: GABA100C4 PO (13:04)
[2016-12-02] MEDS ORDERED: SACC1CAP3 PO (13:04)
[2016-12-02] MEDS ORDERED: HYDR12.57 PO (13:04)
[2016-12-02] MEDS ORDERED: DILT0.05 PO (13:04)
[2016-12-02] MEDS ORDERED: COZA25TA PO (13:04)
[2016-12-02] MEDS ORDERED: CHOL4POW3 PO (13:04)
[2016-12-02] MEDS ORDERED: ALBUAER3 INH (13:04)
[2016-12-02] MEDS ORDERED: TYLE325T PO (13:04)
[2016-12-02] MEDS ORDERED: LEVO25TA4 PO (13:04)
[2016-12-02] MEDS ORDERED: VANC125C3 PO (13:06)
[2016-12-02] MEDS ORDERED: COUM2TAB PO (13:06)
[2016-12-02] MEDS ORDERED: ENOX60P SQ (13:06)
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
[2016-12-02 14:48] LABS: ANA SCREEN POS (NEG)
[2016-12-02] MEDS: WARFARIN SOD 2 MG TAB PO SCH (15:29)
[2016-12-02 16:00] VITALS: BP 125/60; PULSE 61; RESP 20; TEMP 97.7; O2SAT 97
[2016-12-02] MEDS: GABAPENTIN 100 MG CAP PO SCH (18:05)
--- NOTE | 2016-12-02 18:10 | HHI.GIFU ---
GI Follow-up Note Consult Follow-up Subjective: Patient laying in bed comfortably,feeling good, going home today.Had a bowel movement-formed .No nausea, vomiting.RUQ us negative , blood work pending Objective: PHYSICAL EXAMINATION: Vitals signs stable No fever Vital Signs Date Time Temp Pulse Resp B/P (MAP) Pulse Ox O2 Delivery O2 Flow Rate FiO2 12/02/16 16:00 97.7 61 20 125/60 (81) 97 12/02/16 12:11 98.4 65 20 143/63 (89) 96 HEENT: Pupils round and reactive to light; normocephalic; atraumatic; no jaundice. Throat is clear. NECK: Neck is supple, no JVD, no lymphadenopathy. CHEST: Chest is clear to auscultation and percussion. CARDIAC: Regular rate and rhythm with no murmur gallop or rubs. ABDOMEN: Soft, nondistended, nontender; no hepatosplenomegaly; bowel sounds are present in all four quadrants. EXTREMITIES: No clubbing, cyanosis, or edema. SKIN: Normal; no rash; no jaundice. BUSINESS RISK ANALYST: No focal deficits; alert and oriented times three. 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 Entered by: Hortensia Lucero MD Dec 02, 2016 18:10
[2016-12-02 23:52] LABS: IGA SERUM 149 mg/dL (81-463)
[2016-12-04 03:51] LABS: ENDOMYSIAL AB TITER ND (<1:5); MITOCHONDRIAL ABS LESS THAN 20.0 U (<=20.0); TISSUE TRANSGLUTAMINASE AB LESS THAN 1 U/mL (0-4)
[2016-12-05] MEDS ORDERED: COUM2TAB PO (12:36)
[2016-12-12] MEDS ORDERED: COUM2TAB PO (09:42)
[2016-12-19] MEDS ORDERED: SACC1CAP3 PO (18:42)
[2017-01-06] MEDS ORDERED: LEFL1TAB3 PO (11:59)
== END 2016-12-02 19:14 | DRG 813 ==
LOC: NEPE 16:05 → NEDA 20:19 → NEPGCP 22:25 → N05B 11-24 16:06
PROVIDERS: ADMIT Family Medicine; ATTEND Family Medicine
PROC: 0DBN8ZX Excision of Sigmoid Colon, Via Natural or Artificial Opening Endoscopic, Diagnostic (ICD-10-PCS; 2016-11-25)
PROC: 0DBP8ZX Excision of Rectum, Via Natural or Artificial Opening Endoscopic, Diagnostic (ICD-10-PCS; principal; 2016-11-25 10:58)
DX: D68.32 Hemorrhagic disorder due to extrinsic circulating anticoagulants (principal); A04.7 Enterocolitis due to Clostridium difficile; E87.8 Other disorders of electrolyte and fluid balance, not elsewhere classified; I71.2 Thoracic aortic aneurysm, without rupture; K92.2 Gastrointestinal hemorrhage, unspecified; E87.1 Hypo-osmolality and hyponatremia; J44.9 Chronic obstructive pulmonary disease, unspecified; M19.90 Unspecified osteoarthritis, unspecified site; I25.10 Atherosclerotic heart disease of native coronary artery without angina pectoris; H91.93 Unspecified hearing loss, bilateral; E03.9 Hypothyroidism, unspecified; I10 Essential (primary) hypertension; E78.5 Hyperlipidemia, unspecified; M06.9 Rheumatoid arthritis, unspecified; Z66 Do not resuscitate; D64.9 Anemia, unspecified; K64.8 Other hemorrhoids; T45.515A Adverse effect of anticoagulants, initial encounter; R63.4 Abnormal weight loss; Z87.891 Personal history of nicotine dependence; Z95.2 Presence of prosthetic heart valve; Z95.1 Presence of aortocoronary bypass graft
CPT/HCPCS: 74177; 76700; 76937; 80053; 80074; 80076; 81001; 82103; 82390; 82728; 82784; 82977; 83516; 83520; 83540; 83605; 83690; 84080; 84443; 85014; 85018; 85025; 85027; 85610; 85730; 86038; 86039; 86255; 86850; 86900; 86901; 87493; 88305; 96361; 96365; 96368; C9113; J1650; J3430; J7030; Q9967